=== PATIENT | female | born 1945 | race Caucasian/White ===

== ENCOUNTER 2023-04-07 11:28 | Emergency (ER) | payer OTHER, SELFPAY ==
--- NOTE | 2023-04-07 12:18 | ED.GENMED ---
History of Present Illness
General
Chief Complaint: Chest Pain
Source: patient and family
Exam Limitations: none
Time Seen by Provider: 04/07/23 11:59
Nursing documentation reviewed up to this point in time: agreed with
Travel History
Have you had any contact with someone who has COVID-19?: No
Do you have any symptoms of coronavirus? Fever > 100 degrees, chills, cough, shortness of breath, sore throat, loss of taste or smell, muscle aches, or headache?: No
History of Present Illness
History of Present Illness:
77-year-old female presents emergency room complaining of fall weakness, nausea vomiting, left lower quadrant abdominal pain and intermittent diarrhea. No aggravating relieving factors.
Past History
Past History
ED Past Medical History: COPD, CVA (in 2011, ? TIA in 2018), Hyperthyroidism and Other (PE/DVT's, Alzheimers, Vertigo in 2019)
ED Past Surgical History: Appendectomy, (X 2) and Orthopedic (Cervical spine surgery)
Social History
Tobacco: Smoker
Alcohol: None
Drug: None
Personal:
Living: with family
Employment: Retired
Family History
Family History: Other (Noncontributory)
Review of Systems
Review of Systems
Allergies reviewed?: Yes
All Other Systems: Not applicable
Constitutional: Reports no symptoms; Denies fever
EENT: Reports no symptoms
Respiratory: Reports no symptoms
Cardiac: Reports no symptoms
ABD/GI: Reports abdominal pain, vomiting and diarrhea
: Reports no symptoms
Musculoskeletal: Reports no symptoms
Skin: Reports no symptoms
Neurological: Reports no symptoms
Endocrine: Reports no symptoms
Hematologic/Lymphatic: Reports no symptoms
Psychiatric: Reports no symptoms
Phy Exam
Physical Exam
Physical Exam:
Physical Exam
General: Appears uncomfortable, afebrile
Neck: supple. no meningeal signs. normal posterior pharynx
Heart: s1/s2 regular rate and rhythm, no murmur. equal radial
pulses.
HEENT: Pupils equal round reactive to light, EOMI
Lungs: no acute respiratory distress. clear bilaterally
Abdomen: normal bowel sounds. Left upper quadrant tenderness. No CVAT
Neuro: alert and oriented. no focal neurological deficits cranial nerves II through XII intact
Skin: no rash
Psychiatric: well kept. interactive and cooperative
Extremities: no edema. no calf tenderness. negative homans. good distal pulses
Scores
Heart Score for Chest Pain Patients
STEMI patient?: Not applicable
Course
Orders/Labs/Results
Orders:
Orders
04/07/23 11:28
Electrocardiogram (*1) Urgent
Reason for Study: Chest Pain
04/07/23 11:29
EKG- Treatment ONCE
04/07/23 12:00
CMP [Comprehensive Metabolic Panel] Urgent
Complete Blood Count/With Diff Urgent
Lipase Urgent
Troponin I Urgent
04/07/23 12:17
CT Abd/pelvis W Iv Cont Urgent
Comment:
Reason For Exam: Left side abdominal pain worse LUQ, 5am
Abnormal Lab Results
04/07/23
12:00
WBC 12.0 H 10^3/uL
(4.8-10.8)
MCV 79.3 L fL
(81.0-99.0)
MCH 25.8 L pg
(27.0-31.0)
MCHC 32.5 L g/dL
(33.0-37.0)
RDW 17.8 H %
(11.5-14.5)
Abs Immat Gran (auto) 0.1 H 10^3/uL
(0-0.05)
Absolute Neuts (auto) 8.7 H 10^3/uL
(1.4-6.5)
Absolute Monos (auto) 0.9 H 10^3/uL
(0.1-0.6)
Immature Gran % 0.7 H %
(0-0.5)
Lymphocytes % 17.4 L %
(20.5-51.1)
BUN 21 H mg/dl
(7-17)
Creatinine 1.2 H mg/dL
(0.6-1.0)
Glucose 100 H mg/dl
(70-99)
Total Protein 6.0 L g/dl
(6.3-8.2)
04/07/23 12:00
04/07/23 12:00
Vital Signs
Initial and Last Documented VS:
Initial Vital Signs
Temp Pulse Resp BP Pulse Ox
97.9 F 64 26 108/67 100
04/07/23 11:36 04/07/23 11:36 04/07/23 11:36 04/07/23 11:36 04/07/23 11:36
Last Documented Vital Signs
Temp Pulse Resp BP Pulse Ox
97.9 F 59 15 128/59 98
04/07/23 11:36 04/07/23 14:00 04/07/23 12:00 04/07/23 14:00 04/07/23 14:00
MDM/Problems Addressed
Differential Diagnosis Includes:
Hypovolemia, bowel obstruction, gastroenteritis
MDM/Problems Addressed:
77-year-old female with likely gastroenteritis. No signs of bowel obstruction. Stable for discharge, feels better after IV fluid, Zofran.
Chronic conditions affecting care: CAD and Neurological disorder (Alzheimer's)
Acute Exacerbation and/or Progression of Chronic Illness: CAD
*Radiology
Radiology exam reviewed: radiology read reviewed (CT abdomen pelvis shows fluid-filled loops and small and large intestine, possible gastroenteritis)
*Pulse Oximetry
Patient hypoxic: no
*EKG
Interpreted by ED Provider?: Yes
EKG Intrepretation Date: 04/07/23
EKG Intrepretation Time: 11:33
Interpretation: abnormal
Comparison EKG: changes noted
Heart Rate: 57
Rate: bradycardiac
Rhythm: sinus
[place]: normal axis
Interval: normal interval
QRS Pattern: normal QRS
Ischemia: no ischemia
*Station [employer]per Interpretation
Rate: normal
Interpretation: normal
Heart Rate: 60
Rhythm: sinus
*Critical Care Note
Total Time (30-74mins, 75-104mins- exclusive of procedures): Not Applicable
Patient Management
Social determinants of health affecting care: Living situation
Escalation/DeEscalation of care consider admission/obs:
Admit not indicated
ED Attending Note
-
Portions of this chart may have been created with voice recognition software.� Occasional wrong word or��sound alike� substitutions may have occurred due to the inherent limitations of voice recognition software.
Discharge Plan
Departure
Patient Disposition: Home (Routine Discharge)
Date of Disposition: 04/07/23
Time of Disposition: 15:37
Patient with high blood pressure during this ER visit?: Yes
Condition: Good
Discharge Problem:
Nausea and vomiting, Abdominal pain
Instructions: Abdominal Pain, Acute Nausea and Vomiting
Prescriptions:
New
ondansetron 4 mg tablet,disintegrating
4 mg PO Q8H PRN (Reason: nausea and vomiting) 4 Days Qty: 10 0RF
No Action
Xarelto 20 mg Tablet
20 mg PO QPM
atorvastatin 20 mg tablet
20 mg PO QPM
ipratropium-albuterol 0.5 mg-3 mg(2.5 mg base)/3 mL Solution For Nebulization
3 ml INHALATION R BID
famotidine [Pepcid] 20 mg Tablet
20 mg PO QPM
prednisone 10 mg Tablet
5 mg PO QPM
budesonide 1 mg/2 mL Suspension For Nebulization
1 mg INHALATION R TID
Referrals:
Kt Morales, DO [Family Provider] - Call in 1-3 days for appt
Interventions
Interventions:
*Risk Screen - Suicide Last Done: 04/07/23 11:36
*General Assessment Last Done: 04/07/23 11:36
*Neglect/Abuse Screening Last Done: 04/07/23 11:36
ED- Fall Risk Assessment Last Done: 04/07/23 11:49
*ED COVID-19 Vaccine History Last Done: 04/07/23 11:49
ED- Cardiac Assessment Last Done: 04/07/23 12:05
[2023-04-07 12:19] LABS: % Basophils 0.4 % (0-2); % Eosinophils 1.4 % (0-6); % Immature Granulocytes 0.7 % (0-0.5); % Lymphocytes 17.4 % (20.5-51.1); % Monocytes 7.5 % (1.7-9.3); % Neutrophils 72.6 % (42.2-75.2); Absolute Basophils 0.1 10^3/uL (0-0.2); Absolute Eosinophils 0.2 10^3/uL (0-0.7); Absolute Immature Granulocytes 0.1 10^3/uL (0-0.05); Absolute Lymphocytes 2.1 10^3/uL (1.2-3.4); Absolute Monocytes 0.9 10^3/uL (0.1-0.6); Absolute Neutrophils 8.7 10^3/uL (1.4-6.5); Hematocrit 42.2 % (37.0-47.0); Hemoglobin 13.7 g/dL (12.0-16.0); Mean Corp Hgb Conc. 32.5 g/dL (33.0-37.0); Mean Corpuscular Hgb 25.8 pg (27.0-31.0); Mean Corpuscular Volume 79.3 fL (81.0-99.0); Mean Platelet Volume 9.8 fL (7.4-10.4); Nucleated Red Blood Cells % 0 %; Platelet Count 262 10^3/uL (130-400); Red Blood Cell Count 5.32 10^6/uL (4.20-5.40); Red Cell Dist. Width 17.8 % (11.5-14.5)
[2023-04-07 12:30] LABS: ALT (SGPT) 22 U/L (0-35); AST (SGOT) 24 U/L (14-36); Albumin 3.6 g/dl (3.5-5.0); Alkaline Phosphatase 115 U/L (38-126); Blood Urea Nitrogen 21 mg/dl (7-17); Calcium 9.3 mg/dl (8.4-10.2); Carbon Dioxide 27 mmol/L (22-30); Chloride 101 mmol/L (98-107); Estimated Creatinine Clearance 31 ml/min; Glucose 100 mg/dl (70-99); Potassium 4.6 mmol/L (3.5-5.1); Sodium 137 mmol/L (135-145); Total Bilirubin 0.8 mg/dl (0.2-1.3); eGFR 47.21
[2023-04-07 12:42] LABS: Troponin I < 0.012 ng/ml
[2023-04-07 12:47] LABS: Lipase 65 U/L (23-300)
== END 2023-04-07 16:14 | disposition home or self-care (01) ==
LOC: EMR 11:28
PROVIDERS: EMERGENCY PHYSICIAN Emergency Medicine; FAMILY PHYSICIAN Family Medicine
DX: R11.2 Nausea with vomiting, unspecified (principal); R10.32 Left lower quadrant pain; I25.10 Atherosclerotic heart disease of native coronary artery without angina pectoris; F17.200 Nicotine dependence, unspecified, uncomplicated
CPT/HCPCS: 99285; 74177; 80053; 83690; 84484; 85025; 93005; Q9967

== ENCOUNTER → 2023-04-22 09:39 | Outpatient (REF) | payer OTHER, SELFPAY ==
[2023-04-22 10:34] LABS: % Basophils 0.3 % (0-2); % Eosinophils 1.1 % (0-6); % Immature Granulocytes 0.9 % (0-0.5); % Lymphocytes 19.7 % (20.5-51.1); % Monocytes 8.9 % (1.7-9.3); % Neutrophils 69.1 % (42.2-75.2); Absolute Eosinophils 0.1 10^3/uL (0-0.7); Absolute Immature Granulocytes 0.1 10^3/uL (0-0.05); Absolute Lymphocytes 1.8 10^3/uL (1.2-3.4); Absolute Monocytes 0.8 10^3/uL (0.1-0.6); Absolute Neutrophils 6.1 10^3/uL (1.4-6.5); Hematocrit 45.2 % (37.0-47.0); Hemoglobin 14.3 g/dL (12.0-16.0); Mean Corp Hgb Conc. 31.6 g/dL (33.0-37.0); Mean Corpuscular Hgb 25.9 pg (27.0-31.0); Mean Corpuscular Volume 81.7 fL (81.0-99.0); Mean Platelet Volume 9.7 fL (7.4-10.4); Nucleated Red Blood Cells % 0 %; Platelet Count 285 10^3/uL (130-400); Red Blood Cell Count 5.53 10^6/uL (4.20-5.40); Red Cell Dist. Width 18.4 % (11.5-14.5); White Blood Cell Count 8.9 10^3/uL (4.8-10.8)
[2023-04-22 11:06] LABS: Iron 79 ug/dl (37-170)
[2023-04-22 11:17] LABS: Percent Saturation 29 % (20-50); Total Iron Binding Capacity 269 ug/dl (265-497)
[2023-04-22 11:44] LABS: Ferritin 93.5 ng/ml (11.1-264.0)
== END ==
LOC: REG 09:39
PROVIDERS: ATTENDING PHYSICIAN Internal Medicine Hematology & Oncology
DX: I26.99 Other pulmonary embolism without acute cor pulmonale (principal); Z72.0 Tobacco use; I82.401 Acute embolism and thrombosis of unspecified deep veins of right lower extremity
CPT/HCPCS: 36415; 82728; 83540; 83550; 85025

== ENCOUNTER 2023-04-29 12:45 | Outpatient (RCR) | payer OTHER, SELFPAY | END 2023-04-29 23:59 | disposition home or self-care (01) | LOC: PURB 12:45 | PROVIDERS: ATTENDING PHYSICIAN Internal Medicine Critical Care Medicine; FAMILY PHYSICIAN Family Medicine | DX: J43.2 Centrilobular emphysema (principal) | CPT/HCPCS: G0237 ==

== ENCOUNTER 2023-05-29 14:45 | Outpatient (RCR) | payer OTHER, SELFPAY | END 2023-05-29 23:59 | disposition home or self-care (01) | LOC: PURB 14:45 | PROVIDERS: ATTENDING PHYSICIAN Internal Medicine Critical Care Medicine; FAMILY PHYSICIAN Family Medicine | DX: J43.2 Centrilobular emphysema (principal); J44.9 Chronic obstructive pulmonary disease, unspecified; Z87.891 Personal history of nicotine dependence; Z86.711 Personal history of pulmonary embolism; R06.00 Dyspnea, unspecified | CPT/HCPCS: G0239 ==

== ENCOUNTER 2023-06-26 14:45 | Outpatient (RCR) | payer OTHER, SELFPAY | END 2023-06-26 23:59 | disposition home or self-care (01) | LOC: PURB 14:45 | PROVIDERS: ATTENDING PHYSICIAN Internal Medicine Critical Care Medicine; FAMILY PHYSICIAN Family Medicine | DX: J43.2 Centrilobular emphysema (principal) | CPT/HCPCS: G0239 ==

== ENCOUNTER 2023-07-17 14:45 | Outpatient (RCR) | payer OTHER, SELFPAY | END 2023-07-17 23:59 | disposition home or self-care (01) | LOC: PURB 14:45 | PROVIDERS: ATTENDING PHYSICIAN Internal Medicine Critical Care Medicine; FAMILY PHYSICIAN Family Medicine | DX: J43.2 Centrilobular emphysema (principal); Z87.891 Personal history of nicotine dependence | CPT/HCPCS: G0239 ==

== ENCOUNTER 2023-08-07 14:45 | Outpatient (RCR) | payer OTHER, SELFPAY | END 2023-08-15 11:05 | disposition home or self-care (01) | LOC: PURB 14:45 | PROVIDERS: ATTENDING PHYSICIAN Internal Medicine Critical Care Medicine; FAMILY PHYSICIAN Family Medicine | DX: J43.2 Centrilobular emphysema (principal) | CPT/HCPCS: G0239 ==

== ENCOUNTER → 2023-09-09 11:21 | Outpatient (REF) | payer OTHER, SELFPAY ==
[2023-09-09 12:52] LABS: % Basophils 0.4 % (0-2); % Eosinophils 3.4 % (0-6); % Immature Granulocytes 0.4 % (0-0.5); % Lymphocytes 29.6 % (20.5-51.1); % Monocytes 9.5 % (1.7-9.3); % Neutrophils 56.7 % (42.2-75.2); Absolute Eosinophils 0.3 10^3/uL (0-0.7); Absolute Lymphocytes 2.4 10^3/uL (1.2-3.4); Absolute Monocytes 0.8 10^3/uL (0.1-0.6); Absolute Neutrophils 4.6 10^3/uL (1.4-6.5); Hematocrit 42.2 % (37.0-47.0); Hemoglobin 13.6 g/dL (12.0-16.0); Mean Corp Hgb Conc. 32.2 g/dL (33.0-37.0); Mean Corpuscular Hgb 26.2 pg (27.0-31.0); Mean Corpuscular Volume 81.3 fL (81.0-99.0); Mean Platelet Volume 9.5 fL (7.4-10.4); Nucleated Red Blood Cells % 0 %; Platelet Count 294 10^3/uL (130-400); Red Blood Cell Count 5.19 10^6/uL (4.20-5.40); Red Cell Dist. Width 16.1 % (11.5-14.5); White Blood Cell Count 8.1 10^3/uL (4.8-10.8)
[2023-09-09 13:58] LABS: Ferritin 62.2 ng/ml (11.1-264.0)
[2023-09-09 14:00] LABS: Iron 73 ug/dl (37-170)
[2023-09-09 14:08] LABS: Percent Saturation 26 % (20-50); Total Iron Binding Capacity 274 ug/dl (265-497)
== END ==
LOC: REG 11:21
PROVIDERS: ATTENDING PHYSICIAN Internal Medicine Hematology & Oncology; FAMILY PHYSICIAN Family Medicine
DX: I26.99 Other pulmonary embolism without acute cor pulmonale (principal); Z72.0 Tobacco use; I82.401 Acute embolism and thrombosis of unspecified deep veins of right lower extremity
CPT/HCPCS: 36415; 82728; 83540; 83550; 85025

== ENCOUNTER 2024-02-28 02:18 | Inpatient (IN) | payer OTHER, SELFPAY ==
[2024-02-27] VITALS (7 sets, daily range): BP systolic 106–170; BP diastolic 57–101
[2024-02-27 20:42] LABS: Glucose - Point of Care 113 mg/dl (70-99)
--- NOTE | 2024-02-27 20:46 | ED.GENMED ---
History of Present Illness
General
Chief Complaint: Headache
Source: patient and family
Time Seen by Provider: 02/27/24 20:44
History of Present Illness
History of Present Illness:
This patient is a 78-year-old female presents emergency department with complaints of weakness and severe headache. The headache happened very recently before her arrival, within the last hour or 2. Her family member who is with her stated that
she spoke with her at 5 PM and she was not complain of a headache at that time. Her family member states that recently she has appeared 'winded', which happens sometimes when she gets a URI, and she thought she may have 1 and made an appointment
with her PCP for this week. However, after 5 PM, she reportedly began to complain of a severe headache which is her chief complaint at this time.
Past History
Past History
ED Past Medical History: COPD, CVA (in 2011, ? TIA in 2018), Hyperthyroidism and Other (PE/DVT's, Alzheimers, Vertigo in 2019)
ED Past Surgical History: Appendectomy, (X 2) and Orthopedic (Cervical spine surgery)
Social History
Tobacco: Former smoker
Alcohol: None
Drug: None
Personal:
Living: with family
Employment: Retired
Family History
Family History: Other (Noncontributory)
Phy Exam
Physical Exam
Physical Exam:
GENERAL: Alert , in no apparent distress
EYE: pupils equal and reactive, photophobia noted
NECK: Supple, no significant adenopathy.
ENT: o/p clr, mmm.
CARDIAC: Regular rate and rhythm .
LUNGS: Equal breath sounds bilaterally, no acute respiratory distress, no rales or rhonchi, mild wheezing noted
ABDOMEN: Soft, without focal tenderness, no r/g, no cvat
NEUROLOGICAL: Alert and oriented, no focal neuro deficits, moves all extremities equally, speech clear
SKIN: Warm and dry, skin intact.
MUSCULOSKELETAL: No edema, well perfused.
PSYCH: Normal and appropriate interaction although appears restless given pain.
Course
Orders/Labs/Results
Orders:
Orders
02/27/24 20:41
CT Head W/o Iv Contrast Stat
Comment:
Reason For Exam: stroke
02/27/24 20:45
Electrocardiogram (*1) Stat
Reason for Study: Other
Other Reason for Exam: neuro symptoms
Cardiac Monitoring- Treatment ONCE
EKG- Treatment ONCE
02/27/24 20:53
Complete Blood Count/No Diff Urgent
Comprehensive Metabolic Panel Urgent
PTT Urgent
Prothrombin Time Urgent
02/27/24 21:02
Morphine Sulfate 4 mg .ROUTE .STK-MED ONE
Ondansetron Injectable [Zofran] 4 mg .ROUTE .STK-MED ONE
02/27/24 21:03
Morphine Sulfate 4 mg IV NOW STA
02/27/24 21:04
Ondansetron Injectable [Zofran] 4 mg IV NOW STA
02/27/24 21:10
CT Head & Neck Angio W/wo IV Urgent
Reason For Exam: SEVERE H/A
02/27/24 21:41
Metoclopramide [Reglan] 10 mg IV NOW STA
02/27/24 22:29
Ipratropium/Albuterol Sulfate [Duoneb] 3 ml INH R NOW ONE
CR Chest - 2 Views Urgent
Comment:
Reason For Exam: hx copd, hypoxia now
02/28/24 01:23
COVID-19 Antigen Urgent
Source: Nasal Swab
Influenza A+B Rapid Molecular Urgent
SHERMAN Source: Nasal Swab
Specimen Description:
02/28/24 01:39
Admit/Transfer Patient As Directed
Co-Sign Provider:
Level of Care: Inpatient admission
Assign to:: Medical/Surgical
Physician / Group: Dora
Diagnosis: COVID-19, Hypoxemia, Headache
Reason for Hospitalization: COVID-19, Hypoxemia, Headache
Expected length of stay greater than two midnights?: Yes
ELOS- Estimated Length of Stay in days: 2
I certify the patient meets the requirements for IP care: Yes
02/28/24 01:40
PRN Pain Medication Management As Directed
May give lesser potent ordered pain med per pt: Yes
preference::
Protocol:: Medication orders for pain may be administered in a
manner that supports deferring to patient preference
when the pt is:
- Requesting an ordered lesser potent pain medication.
Least to most potent pain medications are defined
as: acetaminophen < NSAID < tramadol < opioids
(morphine, oxycodone, hydromorphone).
- Requesting a lesser dose of the same medication IF
ORDERED.
- Requesting a less intrusive route of administration
if both routes are prescribed by the provider (PO <
IV).
02/28/24 01:41
Code Status As Directed
Resuscitation Status: Full Code
02/28/24 02:56
Acetaminophen [Tylenol] 650 mg PO Q4HPRN PRN
Albuterol [ProAIR HFA INHALER] 2 puff INH R Q4HPRN PRN
Dexamethasone Sod Phosphate [Decadron] 6 mg IV Q12H
HYDROmorphone [Dilaudid] 0.5 mg IV Q4HPRN PRN
Promethazine/Codeine [Phenergan with Codeine Syrup] 5 ml PO Q4HPRN PRN
02/28/24 02:56
Activity As Directed
Activity Level: Ambulate
With Assistance
I/O [Intake/ Output] As Directed
Frequency: Per unit guidelines
Precautions As Directed
Type of Precautions: Droplet
Vital Signs As Directed
Frequency: Per unit guidelines
Oxygen Therapy [O2 Therapy] [RESP] Routine
Titrate/Wean O2 to maintain O2 sat greater than (%): 94
02/28/24 Breakfast
Regular
At Your Request: Full Participation
02/28/24 06:30
Basic Metabolic Panel IN AM
Complete Blood Count/No Diff IN AM
02/28/24 18:00
Atorvastatin [Lipitor] 20 mg PO QPM
Famotidine [Pepcid] 20 mg PO QPM
Rivaroxaban [Xarelto] 20 mg PO QPM
Abnormal Lab Results
02/27/24 02/27/24 02/28/24
20:41 20:53 01:23
WBC 11.2 H 10^3/uL
(4.8-10.8)
RBC 5.49 H 10^6/uL
(4.20-5.40)
MCH 26.2 L pg
(27.0-31.0)
MCHC 32.3 L g/dL
(33.0-37.0)
RDW 16.0 H %
(11.5-14.5)
BUN 18 H mg/dl
(7-17)
Creatinine 1.2 H mg/dL
(0.6-1.0)
Glucose 123 H mg/dl
(70-99)
SARS-CoV-2 Antigen Positive A
(Negative)
POC Glucose 113 H mg/dl
(70-99)
02/27/24 20:53
02/27/24 20:53
Vital Signs
Initial and Last Documented VS:
Initial Vital Signs
BP
170/67
02/27/24 20:40
Last Documented Vital Signs
Temp Pulse Resp BP Pulse Ox
98.3 F 64 16 124/60 98
03/04/24 07:28 03/04/24 07:28 03/04/24 07:28 03/04/24 07:28 03/04/24 07:28
*Critical Care Note
Total Time (30-74mins, 75-104mins- exclusive of procedures): Not Applicable
Update Note
Update Note:
Patient presents to the Emergency Department with ____severe headache and fatigue
Number and Complexity of Problems Addressed at the Encounter
� Chronic conditions affecting care:
� Acute Exacerbation and/or Progression of Chronic Illness:
� Differential Diagnosis includes: But not limited to CVA ischemic, subdural, intracerebral hemorrhage, migraine, hypertensive urgency, etc.
Amount and/or Complexity of Data to be Reviewed and Analyzed
� I performed an independent evaluation of and my interpretation is:
EKG: Read by me, normal sinus rhythm, normal rate, normal axis, no acute ischemia
CT: Preliminary read by me, no bleed noted cta read by donna CTA Head: No large vessel occlusion. No significant arterial stenosis. No aneurysm. Minimal mucosal thickening of the left maxillary sinus.
CTA Neck: There is mixed density atherosclerotic plaque of the left carotid bifurcation/proximal ICA with resultant 30% stenosis by NASCET criteria.
Mild centrilobular emphysematous changes of the bilateral upper lobes.
Xrays:
Laboratory Studies:mild renal insuffic, baseline. nonspec leukocytosis (mild)
Other:
� Review of other/old records reveals: December 2022, admitted with resp failure with COVID
� Clinical information was obtained by an independent historian: Family member who is at bedside
� Prescriptions/Medications Considered but not given:
� Further testing considered but not performed:
Risk of Complications and/or Morbidity or Mortality of Patient Management
� Social determinants of health affecting care:
� Discussion with other providers (PCP, Hospitalists, Consultants, etc):
� Escalation of care including admission/observation vs risk of discharge considered: 848 patient immediately assessed upon presentation to room, stat head CT was ordered and patient is there now.
9:10 PM further history obtained status post CT scan. Of note, I do not see blood on the CT scan although await team final report. Patient is restless in the bed complaining of a severe headache that started shortly before arrival here. She said
she was sitting on the couch and developed a headache across the front of her head associated with mild photophobia. She denies associated neck pain, visual changes, numbness, tingling, focal weakness, dizziness, chest pain, shortness of breath,
abdominal pain, or other complaints. Patient's blood pressure noted to be only moderately elevated and not consistent with a hypertensive emergency. CTA of head and neck ordered with consideration for aneurysm/SAH. No focal neurological findings
at this time. Granddaughter remains at bedside and provides valuable information.
941pm h/a better initially but starting to slowly increase, reglan ordered, pt going to cta
H/a now just on right side, moderate. No new sxs. CTA noted, less concern for sah/ich/etc etc. ?migraine. No obj photophobia noted on exam here. Will meicate, check cxr and give neb.
11:30 PM multiple reassessments by me. Patient noted to be slightly hypoxic at 89 to 90% on room air, granddaughter states that she is typically 95% on room air and she has noted that patient has been 'winded' for at least a day. Highly doubt PE
given patient's anticoagulant use. However, likely consistent with COPD exacerbation as wheezing is noted. No specific infiltrate noted on chest x-ray as reviewed by me and radiology. Will start patient on increased dose of steroids and continue
nebulizer treatments. Neurologically, patient feels better but still has a moderate right-sided headache. She does not have focal neurological symptoms to suggest an acute stroke. She is resting comfortably but does note to be intermittently
restless. May be related to medication reaction, atypical presentation of known history of migraines, etc. Recommend admission, close monitoring, consideration for MR.
ED Attending Note
-
Portions of this chart may have been created with voice recognition software.� Occasional wrong word or��sound alike� substitutions may have occurred due to the inherent limitations of voice recognition software.
Discharge Plan
Departure
Patient Disposition: Admit
Date of Disposition: 02/27/24
Time of Disposition: 23:40
Admit to: Telemetry
Admit to doctor: dora
Presentation/result/management discussed w/ accepting MD/DO: Hospitalist
Condition: Fair
Discharge Problem:
Acute exacerbation of chronic obstructive pulmonary disease (COPD), Headache, COVID
Interventions
Interventions:
*Risk Screen - Suicide Last Done: 02/28/24 03:00
*General Assessment Last Done: 02/27/24 20:51
*Neglect/Abuse Screening Last Done: 02/27/24 20:51
ED- Fall Risk Assessment Last Done: 02/27/24 23:17
*ED COVID-19 Vaccine History Last Done: 02/28/24 03:00
*Nursing Disposition Last Done: 02/28/24 03:01
ED- Neurological Assessment Last Done: 02/27/24 20:51
Discharge Date and Time
Discharge Date/Time: 02/28/24 03:02
[2024-02-27 20:58] LABS: Hematocrit 44.6 % (37.0-47.0); Hemoglobin 14.4 g/dL (12.0-16.0); Mean Corp Hgb Conc. 32.3 g/dL (33.0-37.0); Mean Corpuscular Hgb 26.2 pg (27.0-31.0); Mean Corpuscular Volume 81.2 fL (81.0-99.0); Mean Platelet Volume 9.5 fL (7.4-10.4); Platelet Count 261 10^3/uL (130-400); Red Blood Cell Count 5.49 10^6/uL (4.20-5.40); White Blood Cell Count 11.2 10^3/uL (4.8-10.8)
[2024-02-27] MEDS: ZOFRAN 4 MG IV (21:04)
[2024-02-27] MEDS: MORPHINE SULFATE 4 MG IV (21:05)
[2024-02-27 21:09] LABS: PT 13.7 Sec (11.4-14.6)
[2024-02-27 21:10] LABS: APTT 30.3 Sec (23.4-35.0)
[2024-02-27 21:13] LABS: ALT (SGPT) 19 U/L (0-35); AST (SGOT) 25 U/L (14-36); Albumin 4.1 g/dl (3.5-5.0); Alkaline Phosphatase 115 U/L (38-126); Blood Urea Nitrogen 18 mg/dl (7-17); Calcium 9.1 mg/dl (8.4-10.2); Carbon Dioxide 24 mmol/L (22-30); Chloride 103 mmol/L (98-107); Estimated Creatinine Clearance 30 ml/min; Glucose 123 mg/dl (70-99); Sodium 136 mmol/L (135-145); Total Bilirubin 0.9 mg/dl (0.2-1.3); Total Protein 6.7 g/dl (6.3-8.2); eGFR 46.91
[2024-02-27] MEDS: REGLAN 10 MG IV (22:20)
[2024-02-27] MEDS: DUONEB 3 ML INH (22:48)
[2024-02-28] VITALS (7 sets, daily range): BP systolic 106–143; BP diastolic 52–103; BMI 22.3
[2024-02-28 01:31] LABS: COVID-19 Antigen Positive (Negative)
--- NOTE | 2024-02-28 01:44 | HPS.HSE ---
Family Physician
-
Family Physician: Kt Morales
Chief Complaint
-
Cough / Headache
History of Present Illness
Patient is a 78y F with PMH significant for COPD, CKD and prior CVA who presents to ED complaining of cough and headache. Patient states that she was feeling fairly well until a cough 'came out of nowhere' about 3-4 days ago. She has had
hacking, non-productive cough with harsh paroxysms of coughing. She reports some chills, muscle aches. Today, she developed a severe headache at both temples and presented to the ED for further evaluation. Patient is not aware of any specific
recent sick contacts. She denies any GI or complaints.
She denies any prior history of similar / severe headaches, migraines, etc.
Patient has / had no symptoms of focal weakness, numbness or tingling, slurred speech, etc.
Medical History
Past Medical History
Past Medical History: Reports Other
Additional Past Medical History:
ASCVD / Prior CVA
COPD
CKD III
Hyperthyroidism
? Paroxysmal A-Fib (patient denies this diagnosis)
History of DVT / PE
Past Surgical History: Reports Other
Additional Past Surgical History:
Cervical Fusion
Cataracts
x 2
Social History
Tobacco: Former Smoker (Quit smoking 3 years ago. > 50 pack years total use.)
Alcohol: None
Drug: None
Family History
Family History: Not pertinent
Allergies / Home Medications
Allergies reflects when Allergies were last updated in [facility].
Home Medications with original date entered in [facility]
Allergy/Medication List:
Allergies
Allergy/AdvReac Type Severity Reaction Status Date / Time
No Known Allergies Allergy Verified 12/07/22 15:13
Home Medications
rivaroxaban 20 mg tablet (Xarelto) 20 mg PO QPM DVT/PE 12/03/21
atorvastatin 20 mg tablet 20 mg PO QPM High Cholesterol 12/07/22
ipratropium 0.5 mg-albuterol 3 mg (2.5 mg base)/3 mL nebulization soln 3 ml inhalation R TID 01/28/23
famotidine 20 mg tablet (Pepcid) 20 mg PO QPM 04/07/23
acetaminophen 500 mg tablet (Tylenol Extra Strength) 500 mg PO Q6HPRN PRN mild pain 02/27/24
budesonide 0.5 mg/2 mL suspension for nebulization 0.5 mg inhalation R BID 02/27/24
prednisone 5 mg tablet 5 mg PO QPM 02/27/24
rizatriptan 10 mg tablet 10 mg PO DAILYPRN PRN headache 02/27/24
Review of Systems
-
History Source: Patient
A 12 point ROS was completed and negative except as noted: Yes
Constitutional: Reports Fatigue and Chills; Denies Fever
EENT: Denies Sore Throat
Respiratory: Reports Cough; Denies Hemoptysis or Trouble Breathing
Cardiac: Denies Chest Pain or Palpitations
Abdomen/GI: Denies Abdominal Pain, Nausea, Vomiting or Diarrhea
: Denies Dysuria or Frequency
Neurological: Reports Headache; Denies Dizzy
Psych: Denies Depression or Anxiety
Physical Exam
Vital Signs
Vital Signs
Temp Pulse Resp BP Pulse Ox
98.7 F 84 13 109/58 97
02/27/24 21:09 02/28/24 00:30 02/28/24 00:30 02/28/24 00:00 02/28/24 00:30
Physical Exam
General: Other (78y F in mild distress due to headache and cough.)
HEENT: Moist mucous membranes and PERRLA
Respiratory: Other (Rales at the L > R base. No wheezing or rhonchi.)
Cardiac: S1/S2, Regular Rhythm and Tachycardia; No Murmur
GI: Soft, Non Tender, Non Distended and Normal Bowel Sounds
Musculoskeletal: No Clubbing, No Cyanosis and No Edema
Neuro: AO x 3 and Nonfocal/grossly intact
Laboratory Results
-
02/27/24 20:53
02/27/24 20:53
Laboratory Results
PT 13.7 Sec (11.4-14.6) 02/27/24 20:53
INR 1.00 02/27/24 20:53
APTT 30.3 Sec (23.4-35.0) 02/27/24 20:53
Total Bilirubin 0.9 mg/dl (0.2-1.3) 02/27/24:53
AST 25 U/L (14-36) 02/27/24 20:53
ALT 19 U/L (0-35) 02/27/24:53
Alkaline Phosphatase 115 U/L (38-126) 02/27/24 20:53
Impression/Plan
-
A/P: Patient is a 78y F with PMH significant for COPD, CVA and prior DVT / PE who presents to ED complaining of harsh cough and severe headache.
COVID-19 Infection
Acute Hypoxemic Respiratory Insufficiency secondary to the above
- Admit for further evaluation and treatment.
- Mild hypoxemia with SpO2 < 94%.
- Will begin steroid therapy given hypoxemia, concurrent COPD and migraine / severe headache.
- Follow proper precautions.
- Monitor for clinical improvement.
- Supportive care / supplemental O2 as needed.
- Albuterol MDI.
Severe Headache
- Seems likely secondary to harsh paroxysms of cough / COVID infection as noted above.
- Imaging in the ED this evening including CT and CTA was unremarkable.
- Continue supportive care with pain control, steroids, etc.
- Follow for any new / worsening symptoms.
COPD without Acute Exacerbation
- No wheezing appreciated on exam at present.
- IV steroids with dexamethasone as noted above.
- Taper quickly / discontinue as clinically improves.
- Inhalers / MDI as noted.
ASCVD / History of CVA
- No residual deficit per patient.
- No new focal symptoms, etc today - despite severe headache.
- Follow for any changes.
CKD III
- Stable. SCr is at / near known baseline.
- Follow for changes.
Paroxysmal A-Fib
- Patient seems unaware of this diagnosis - ? accuracy.
- Currently in sinus rhythm.
- On Xarelto (for history of DVT / PE).
History of DVT / PE
DVT Prophylaxis
- Continue Xarelto
Code Status: Full
--- NOTE | 2024-02-28 03:00 | PTCARENOTE ---
Pt arrived to unit @ 3am via stretcher and required x2 assistance to walk to room. Pt is very unsteady and unable to stand on own gait is very weak. VSS, afebrile. Pt anxious @ baseline and restless when awake, moves all extremities with no issues.
ADMISSION DOCUMENTATION COMPLETED IN ROOM WITH PATIENT.
[2024-02-28] MEDS: DECADRON 6 MG IV ×2 (03:40→16:15)
[2024-02-28 07:13] LABS: Hematocrit 43.5 % (37.0-47.0); Hemoglobin 14.1 g/dL (12.0-16.0); Mean Corp Hgb Conc. 32.4 g/dL (33.0-37.0); Mean Corpuscular Hgb 26.3 pg (27.0-31.0); Platelet Count 235 10^3/uL (130-400); Red Blood Cell Count 5.37 10^6/uL (4.20-5.40); Red Cell Dist. Width 16.3 % (11.5-14.5); White Blood Cell Count 11.1 10^3/uL (4.8-10.8)
[2024-02-28 07:31] LABS: Blood Urea Nitrogen 19 mg/dl (7-17); Carbon Dioxide 24 mmol/L (22-30); Chloride 102 mmol/L (98-107); Estimated Creatinine Clearance 30 ml/min; Glucose 105 mg/dl (70-99); Potassium 4.7 mmol/L (3.5-5.1); Sodium 135 mmol/L (135-145); eGFR 46.91
[2024-02-28 09:13] LABS: Glucose - Point of Care 117 mg/dl (70-99)
--- NOTE | 2024-02-28 15:04 | PTCARENOTE ---
patient denies complaints, has +sob with exertion, tolerating diet, vss, will continue to monitor.
--- NOTE | 2024-02-28 16:45 | CM ---
Alert awake forgetful patient who lives with her Guido and special needs son Tj who lives in a 1 story home with 0 steps to enter. She is independent in most all activities of daily living.Assisted with med prep.Spoke with granddgt
Berta [phone] because pt requested.Berta said has dementia. Family is looking for more help for patient at home. Will need PT OT for dc planning.
No adaptive devices
VN hx / [facility]
Pharmacy [facility] [place]
PCP Dr Morales
PLAN Will need PT OT eval for dc planning
[2024-02-28] MEDS: LIPITOR 20 MG PO (17:17)
[2024-02-28] MEDS: PEPCID 20 MG PO (17:18)
[2024-02-28] MEDS: XARELTO 20 MG PO (17:18)
[2024-02-28] MEDS: PHENERGAN WITH CODEINE SYRUP 5 ML PO (22:12)
[2024-02-29] MEDS: DECADRON 6 MG IV ×2 (03:24→16:11)
[2024-02-29 06:00] VITALS: BMI 22.2
[2024-02-29 07:00] VITALS: BP 121/74
--- NOTE | 2024-02-29 07:52 | W.PN.HOSP.TC ---
Today's Communication/Plan
-
see bold
Assessment / Plan
Assessment / Plan
Gen: NAD, AAOx3.
Eyes: EOMI, PERRLA, no scleral icterus.
Neck: supple.
CV: RRR, +S1/S2, no m/r/g.
Resp: CTAB, no rales, wheezes, or rhonchi.
Abd: +BS, soft, NT, ND
Skin: No rashes.
Neuro: CN 2-12 intact
Psych: Normal mood and affect.
CXR: Right basilar atelectasis/scarring. No evidence of pneumonia or overt edema. Mild emphysematous changes within the bilateral upper lobes.
CT brain: No acute intracranial abnormality noted.
CTA Head: No large vessel occlusion. No significant arterial stenosis. No aneurysm. Minimal mucosal thickening of the left maxillary sinus.
CTA Neck: There is mixed density atherosclerotic plaque of the left carotid bifurcation/proximal ICA with resultant 30% stenosis by NASCET criteria.
Mild centrilobular emphysematous changes of the bilateral upper lobes.
Acute hypoxemic respiratory insufficiency due to acute COVID infection:
-CXR without infiltrated
-cont Decadron
-currently on 4L NC O2, wean O2 as tolerated
-start Monupiravir (as per discussion with pharmacy no changes in statin or Xarelto are required)
Other problems:
COPD without Acute Exacerbation: Albuterol PRN
CAD: cont statin
h/o CVA: cont Statin/Xarelto
PAF (? diagnosis): cont Xarelto
CKD3
h/o DVT/PE: cont Xarelto
FULL/Xarelto
Anticipated Discharge: 24 - 48 hours
Subjective/Interval History
-
Date of Service: February 29, 2024
'I feel a lot better than yesterday.'
Objective Data
-
Vital Signs:
Vital Signs
Temp Pulse Resp BP Pulse Ox
97.8 F 83 16 143/103 97
02/28/24 23:00 02/28/24 23:00 02/28/24 23:00 02/28/24 23:00 02/28/24 23:00
I&O
02/28/24 02/29/24 03/01/24
06:59 06:59 06:59
Intake Total 1440 / 1440 600 / 600
Balance 1440 / 1440 600 / 600
[2024-02-29] MEDS: MOLNUPIRAVIR (EUA) 800 MG PO ×2 (13:18→20:54)
[2024-02-29 15:00] VITALS: BP 129/70
[2024-02-29] MEDS: XARELTO 20 MG PO (17:50)
[2024-02-29] MEDS: PEPCID 20 MG PO (17:50)
[2024-02-29] MEDS: LIPITOR 20 MG PO (17:50)
[2024-02-29 23:28] VITALS: BP 134/63
[2024-03-01] MEDS: DECADRON 6 MG IV (02:45)
[2024-03-01 06:00] VITALS: BMI 22.1
[2024-03-01 07:46] VITALS: BP 135/60
[2024-03-01] MEDS: MOLNUPIRAVIR (EUA) 800 MG PO ×2 (08:13→20:03)
--- NOTE | 2024-03-01 09:03 | W.PN.HOSP.TC ---
Today's Communication/Plan
-
Steroids. Molnupiravir. Oxygen.
Assessment / Plan
Assessment / Plan
Gen: NAD, AAOx3.
Eyes: EOMI, PERRLA, no scleral icterus.
Neck: supple.
CV: RRR, +S1/S2, no m/r/g.
Resp: Decreased breath sounds bilateral. Limited airflow. No rales, wheezes, or rhonchi.
Abd: +BS, soft, NT, ND
Skin: No rashes.
Neuro: CN 2-12 intact
Psych: Normal mood and affect.
CXR: Right basilar atelectasis/scarring. No evidence of pneumonia or overt edema. Mild emphysematous changes within the bilateral upper lobes.
CT brain: No acute intracranial abnormality noted.
CTA Head: No large vessel occlusion. No significant arterial stenosis. No aneurysm. Minimal mucosal thickening of the left maxillary sinus.
CTA Neck: There is mixed density atherosclerotic plaque of the left carotid bifurcation/proximal ICA with resultant 30% stenosis by NASCET criteria.
Mild centrilobular emphysematous changes of the bilateral upper lobes.
A/P:
Acute hypoxemic respiratory insufficiency due to acute COVID infection:
-CXR without infiltrated
-cont Decadron but decrease from 6 mg bid to 6 mg daily
-currently on 4L NC O2, wean O2 as tolerated
-start Monupiravir (as per discussion with pharmacy no changes in statin or Xarelto are required)
-Added cough meds
Tremors:
Acute on chronic
May be exacerbated by steroids but discussed risk and benefits and she would like to continue (will taper doses as above)
CKD:
Creatinine 1.3 from 1.2 couple days ago
Avoid nephrotoxic
Repeat renal function in a.m.
Other problems:
COPD without Acute Exacerbation: Albuterol PRN
CAD: cont statin
h/o CVA: cont Statin/Xarelto
PAF (? diagnosis): cont Xarelto
CKD3
h/o DVT/PE: cont Xarelto
FULL/Xarelto
Anticipated Discharge: > 48 hours
Subjective/Interval History
-
Date of Service: March 01, 2024
Patient complains of cough. Less shortness of breath. No chest pain. On supplemental oxygen. Afebrile
Objective Data
-
Vital Signs:
Vital Signs
Temp Pulse Resp BP Pulse Ox
98.5 F 63 16 135/60 100
03/01/24 07:46 03/01/24 07:46 03/01/24 07:46 03/01/24 07:46 03/01/24 07:46
I&O
02/29/24 03/01/24 03/02/24
06:59 06:59 06:59
Intake Total 1440 / 1440 2970 / 2970
Balance 1440 / 1440 2970 / 2970
[2024-03-01 12:54] LABS: Blood Urea Nitrogen 32 mg/dl (7-17); Calcium 8.8 mg/dl (8.4-10.2); Carbon Dioxide 29 mmol/L (22-30); Chloride 99 mmol/L (98-107); Estimated Creatinine Clearance 28 ml/min; Glucose 209 mg/dl (70-99); Potassium 4.3 mmol/L (3.5-5.1); Sodium 137 mmol/L (135-145); eGFR 42.62
[2024-03-01] MEDS: ROBITUSSIN AC 5 ML PO ×2 (14:05→20:00)
--- NOTE | 2024-03-01 14:31 | CM ---
Chart reviewed
+Covid
On
plan: home, currently no needs anticipated
[2024-03-01 15:07] VITALS: BP 132/55
[2024-03-01] MEDS: PEPCID 20 MG PO (18:31)
[2024-03-01] MEDS: XARELTO 20 MG PO (18:32)
[2024-03-01] MEDS: 0.45%NACL 1000 IV (18:35)
[2024-03-01] MEDS: LIPITOR 20 MG PO (18:35)
--- NOTE | 2024-03-01 20:26 | PTCARENOTE ---
Pt niece requested IVF as she said her aunt doesn't drink a lot and may be 'dehydrated'. Dr Mitchell notified. IVF ordered and hung.
[2024-03-02 00:04] VITALS: BP 132/57
[2024-03-02 06:00] VITALS: BMI 22.3
[2024-03-02 07:30] VITALS: BP 136/67
[2024-03-02] MEDS: MOLNUPIRAVIR (EUA) 800 MG PO ×2 (08:32→20:58)
[2024-03-02] MEDS: DECADRON 6 MG IV (08:40)
[2024-03-02] MEDS: 0.45%NACL 1000 IV (08:41)
--- NOTE | 2024-03-02 09:01 | W.PN.HOSP.TC ---
Addendum entered and electronically signed by Tj Mitchell MD 03/02/24 17:33:
updated daughter over the phone today
Addendum entered and electronically signed by Tj Mitchell MD 03/02/24 15:02:
Viral sepsis, POA
COPD exacerbation-still being monitored/treated
Original Note:
Today's Communication/Plan
-
Dexamethasone. Molnupiravir. PT OT eval
Assessment / Plan
Assessment / Plan
Gen: NAD, AAOx3.
Eyes: EOMI, PERRLA, no scleral icterus.
Neck: supple.
CV: RRR, +S1/S2, no m/r/g.
Resp: Decreased breath sounds bilateral. Limited airflow. No rales, wheezes, or rhonchi.
Abd: +BS, soft, NT, ND
Skin: No rashes.
Neuro: CN 2-12 intact
Psych: Normal mood and affect.
CXR: Right basilar atelectasis/scarring. No evidence of pneumonia or overt edema. Mild emphysematous changes within the bilateral upper lobes.
CT brain: No acute intracranial abnormality noted.
CTA Head: No large vessel occlusion. No significant arterial stenosis. No aneurysm. Minimal mucosal thickening of the left maxillary sinus.
CTA Neck: There is mixed density atherosclerotic plaque of the left carotid bifurcation/proximal ICA with resultant 30% stenosis by NASCET criteria.
Mild centrilobular emphysematous changes of the bilateral upper lobes.
A/P:
Acute hypoxemic respiratory insufficiency due to acute COVID infection:
-CXR without infiltrated
-cont Decadron but decrease from 6 mg bid to 6 mg daily--> switch to dexamethasone 6 mg orally from tomorrow on
-currently on 4L NC O2, wean O2 as tolerated
-start Monupiravir (as per discussion with pharmacy no changes in statin or Xarelto are required)
-Continue cough meds
-PT OT eval for discharge disposition
Tremors:
Acute on chronic
May be exacerbated by steroids but discussed risk and benefits and she would like to continue (will taper doses as above)
CKD:
Creatinine 1.1 from 1.3--> received some IV fluids yesterday. Stop IV fluids today
Avoid nephrotoxic
Repeat renal function in a.m.
Other problems:
COPD without Acute Exacerbation: Albuterol PRN
CAD: cont statin
h/o CVA: cont Statin/Xarelto
PAF (? diagnosis): cont Xarelto
CKD3
h/o DVT/PE: cont Xarelto
FULL/Xarelto
Anticipated Discharge: 24 - 48 hours
Subjective/Interval History
-
Date of Service: March 02, 2024
Patient feels better today but not ready for discharge. Still has some cough and less short of breath. Afebrile. On room air
Objective Data
-
Labs:
Laboratory Results
03/02/24
08:14
WBC Pending
Hgb Pending
Hct Pending
Plt Count Pending
Sodium Pending
Potassium Pending
Chloride Pending
Carbon Dioxide Pending
BUN Pending
Creatinine Pending
Glucose Pending
Calcium Pending
Vital Signs:
Vital Signs
Temp Pulse Resp BP Pulse Ox
98.1 F 64 18 136/67 94
03/02/24 07:30 03/02/24 07:30 03/02/24 07:30 03/02/24 07:30 03/02/24 07:30
I&O
03/01/24 03/02/24 03/03/24
06:59 06:59 06:59
Intake Total 2970 / 2970 1380 / 1380
Balance 2970 / 2970 1380 / 1380
--- NOTE | 2024-03-02 09:13 | PN.CDI ---
CDI
- -
CDI:
Physician Documentation Request
Admit Date: 02/28/24 02:18
Dear Doctor Mitchell,
Please review the following and provide your response in the progress notes.
Clinical Indicators:
Pt admitted with COVID-19 infection
On admission HR 106, Respirations 33
Please clarify which of the following most accurately describes the status of the patient's infection:
Viral Sepsis-POA
- Systemic manifestations of infection, with 2 or more SIRS criteria which include:
- Fever >100.4 degrees F or hypothermia < 96.8 degrees F
- Leukocytosis - WBC > 12,000 or leukopenia - WBC < 4,000 or > 10% bands
- Tachycardia > 90 beats per minute
- Tachypnea - RR > 20 breaths per minute or PaCO2 , 32mmHg
Source: Merck Manual 2013
COVID-19 Infection Only, Without Systemic Illness
Other ( please specify)
Use of terms such as suspected, likely, concern for, or probable (associated with a specific diagnosis that is being evaluated, monitored, or treated as if it exists) are acceptable and can be coded in the inpatient setting, when documented at the
time of discharge.
Thank you,
Ela Mcfarland RN
CDI Specialist
[place] [facility]
Please use your independent medical judgment in providing your response.
--- NOTE | 2024-03-02 09:22 | PN.CDI ---
CDI
- -
CDI:
Physician Documentation Request
Admit Date: 02/28/24 02:18
Dear Doctor Stephen,
Please review the following and provide your response in the progress notes.
Clinical Indicators:
Pt admitted with COVID-19 infection
Documented per ED, ' Patient noted to be slightly hypoxic at 89 to 90% on room air, granddaughter states that she is typically 95% on room air and she has noted that patient has been 'winded' for at least a day. ...... However, likely consistent
with COPD exacerbation as wheezing is noted.....Will start patient on increased dose of steroids and continue nebulizer treatments.... Acute exacerbation of chronic obstructive pulmonary disease (COPD).....'
Please update the status of COPD exacerbation documented in ED:
COPD exacerbation -resolved
COPD exacerbation-still being monitored/treated
COPD exacerbation -ruled out
Other ( please specify)
Use of terms such as suspected, likely, concern for, or probable (associated with a specific diagnosis that is being evaluated, monitored, or treated as if it exists) are acceptable and can be coded in the inpatient setting, when documented at the
time of discharge.
Thank you,
Ela Mcfarland RN
CDI Specialist
[place] [facility]
Please use your independent medical judgment in providing your response.
[2024-03-02 09:48] LABS: % Basophils 0.1 % (0-2); % Eosinophils 0.1 % (0-6); % Immature Granulocytes 0.4 % (0-0.5); % Lymphocytes 17.9 % (20.5-51.1); % Monocytes 10.4 % (1.7-9.3); % Neutrophils 71.1 % (42.2-75.2); Absolute Lymphocytes 1.9 10^3/uL (1.2-3.4); Absolute Monocytes 1.1 10^3/uL (0.1-0.6); Absolute Neutrophils 7.4 10^3/uL (1.4-6.5); Hematocrit 43.5 % (37.0-47.0); Hemoglobin 13.7 g/dL (12.0-16.0); Mean Corp Hgb Conc. 31.5 g/dL (33.0-37.0); Mean Corpuscular Hgb 25.9 pg (27.0-31.0); Mean Corpuscular Volume 82.2 fL (81.0-99.0); Mean Platelet Volume 9.9 fL (7.4-10.4); Nucleated Red Blood Cells % 0 %; Platelet Count 259 10^3/uL (130-400); Red Blood Cell Count 5.29 10^6/uL (4.20-5.40); White Blood Cell Count 10.4 10^3/uL (4.8-10.8)
[2024-03-02 10:26] LABS: Blood Urea Nitrogen 28 mg/dl (7-17); Calcium 8.2 mg/dl (8.4-10.2); Carbon Dioxide 29 mmol/L (22-30); Chloride 101 mmol/L (98-107); Estimated Creatinine Clearance 33 ml/min; Glucose 74 mg/dl (70-99); Potassium 4.3 mmol/L (3.5-5.1); Sodium 136 mmol/L (135-145); eGFR 52.08
[2024-03-02 15:30] VITALS: BP 149/71
[2024-03-02 15:44] VITALS: PULSE 78; O2SAT 96
--- NOTE | 2024-03-02 15:56 | PTOTSP ---
The patient is ambulating in the room independently with steady gait, expressed understanding of taking breaks as needed with shortness of breath. Patient anticipates returning home when discharged - may benefit from Home PT to ensure return to
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 No PT needs at this time, will sign off.
[2024-03-02] MEDS: PEPCID 20 MG PO (16:58)
[2024-03-02] MEDS: TYLENOL 650 MG PO (16:58)
[2024-03-02] MEDS: ROBITUSSIN AC 5 ML PO (16:58)
[2024-03-02] MEDS: LIPITOR 20 MG PO (16:58)
[2024-03-02] MEDS: XARELTO 20 MG PO (16:59)
[2024-03-02 23:41] VITALS: BP 102/65
[2024-03-03 06:32] VITALS: BMI 22.2
[2024-03-03 07:00] VITALS: BP 154/90
[2024-03-03 08:20] LABS: % Basophils 0.1 % (0-2); % Immature Granulocytes 0.4 % (0-0.5); % Lymphocytes 18.8 % (20.5-51.1); % Monocytes 10.7 % (1.7-9.3); Absolute Lymphocytes 1.9 10^3/uL (1.2-3.4); Absolute Monocytes 1.1 10^3/uL (0.1-0.6); Absolute Neutrophils 6.9 10^3/uL (1.4-6.5); Hematocrit 42.1 % (37.0-47.0); Hemoglobin 13.4 g/dL (12.0-16.0); Mean Corp Hgb Conc. 31.8 g/dL (33.0-37.0); Mean Corpuscular Volume 81.6 fL (81.0-99.0); Nucleated Red Blood Cells % 0 %; Platelet Count 262 10^3/uL (130-400); Red Blood Cell Count 5.16 10^6/uL (4.20-5.40); Red Cell Dist. Width 15.7 % (11.5-14.5); White Blood Cell Count 9.9 10^3/uL (4.8-10.8)
[2024-03-03 09:04] LABS: Blood Urea Nitrogen 29 mg/dl (7-17); Calcium 8.5 mg/dl (8.4-10.2); Carbon Dioxide 29 mmol/L (22-30); Chloride 104 mmol/L (98-107); Estimated Creatinine Clearance 33 ml/min; Glucose 108 mg/dl (70-99); Potassium 5.2 mmol/L (3.5-5.1); Sodium 138 mmol/L (135-145); eGFR 52.08
[2024-03-03] MEDS: DECADRON 6 MG PO (09:06)
[2024-03-03] MEDS: MOLNUPIRAVIR (EUA) 800 MG PO ×2 (09:07→21:13)
--- NOTE | 2024-03-03 09:54 | W.PN.HOSP.TC ---
Today's Communication/Plan
-
Seroquel trial. Stop steroids. Stop Dilaudid and codeine.
Assessment / Plan
Assessment / Plan
Gen: NAD, AAOx3.
Eyes: EOMI, PERRLA, no scleral icterus.
Neck: supple.
CV: RRR, +S1/S2, no m/r/g.
Resp: Decreased breath sounds bilateral. Limited airflow. No rales, wheezes, or rhonchi.
Abd: +BS, soft, NT, ND
Skin: No rashes.
Neuro: Alert, disoriented, CN 2-12 intact, no gross neurological deficit
Psych: Normal mood and affect but limited insight today.
CXR: Right basilar atelectasis/scarring. No evidence of pneumonia or overt edema. Mild emphysematous changes within the bilateral upper lobes.
CT brain: No acute intracranial abnormality noted.
CTA Head: No large vessel occlusion. No significant arterial stenosis. No aneurysm. Minimal mucosal thickening of the left maxillary sinus.
CTA Neck: There is mixed density atherosclerotic plaque of the left carotid bifurcation/proximal ICA with resultant 30% stenosis by NASCET criteria.
Mild centrilobular emphysematous changes of the bilateral upper lobes.
A/P:
Acute hypoxemic respiratory insufficiency due to acute COVID infection:
-CXR without infiltrated
-Stop Decadron since she is on room air and she is having delirium
-Continue Monupiravir
-Continue cough meds but change around as below
-PT OT eval
Toxic-metabolic encephalopathy:
Mostly in hospital delirium and medications
CT head and CTA of the head and neck upon admission reviewed and unremarkable
For now we will discontinue codeine for cough I will change to Robitussin
Also will discontinue IV Dilaudid
Also will stop steroids-she get dexamethasone 6 mg today already. Tomorrow will place her back on her oral prednisone home doses of 5 mg depending on her course
Discussed with family also to include a trial of low-dose of antipsychotic with Seroquel and they agree. Will start Seroquel 25 mg p.o. daily and can discontinue short-term.
Tremors:
Acute on chronic
Discontinue all medications that can contribute
CKD:
Creatinine 1.1 from 1.3
Avoid nephrotoxic
Repeat renal function in a.m.
Viral sepsis due to pneumonia, POA
Other problems:
COPD with Acute Exacerbation, still being monitor and treated: Albuterol PRN and finish course of steroids
CAD: cont statin
h/o CVA: cont Statin/Xarelto
PAF (? diagnosis): cont Xarelto
CKD3
h/o DVT/PE: cont Xarelto
FULL/Xarelto
Anticipated Discharge: 24 - 48 hours
Subjective/Interval History
-
Date of Service: March 03, 2024
Patient respiratory status improved but mentation is worse. She is alert but disoriented. Tremors more pronounced
Objective Data
-
Labs:
Laboratory Results
03/03/24
07:28
WBC 9.9
Hgb 13.4
Hct 42.1
Plt Count 262
Sodium 138
Potassium 5.2 H
Chloride 104
Carbon Dioxide 29
BUN 29 H
Creatinine 1.1 H
Glucose 108 H
Calcium 8.5
Vital Signs:
Vital Signs
Temp Pulse Resp BP Pulse Ox
98.6 F 77 18 154/90 98
03/03/24 07:00 03/03/24 07:00 03/03/24 07:00 03/03/24 07:00 03/03/24 07:00
I&O
03/02/24 03/03/24 03/04/24
06:59 06:59 06:59
Intake Total 1380 / 1380 1320 / 1320
Balance 1380 / 1380 1320 / 1320
[2024-03-03 10:59] LABS: Potassium 4.1 mmol/L (3.5-5.1)
[2024-03-03 15:00] VITALS: BP 155/71
[2024-03-03 16:39] VITALS: BP 135/65; PULSE 59; O2SAT 97
[2024-03-03] MEDS: LIPITOR 20 MG PO (17:03)
[2024-03-03] MEDS: XARELTO 20 MG PO (17:03)
[2024-03-03] MEDS: PEPCID 20 MG PO (17:03)
[2024-03-03] MEDS: SEROQUEL 25 MG PO (21:13)
[2024-03-03 23:55] VITALS: BP 135/70
[2024-03-04 07:28] VITALS: BP 124/60
--- NOTE | 2024-03-04 07:32 | W.PN.HOSP.TC ---
Today's Communication/Plan
-
Continue Seroquel. Neurology eval.
Assessment / Plan
Assessment / Plan
Gen: NAD, AAOx3.
Eyes: EOMI, PERRLA, no scleral icterus.
Neck: supple.
CV: RRR, +S1/S2, no m/r/g.
Resp: Decreased breath sounds bilateral. Limited airflow. No rales, wheezes, or rhonchi.
Abd: +BS, soft, NT, ND
Skin: No rashes.
Neuro: Alert, disoriented, CN 2-12 intact, no gross neurological deficit
Psych: Normal mood and affect but limited insight today.
CXR: Right basilar atelectasis/scarring. No evidence of pneumonia or overt edema. Mild emphysematous changes within the bilateral upper lobes.
CT brain: No acute intracranial abnormality noted.
CTA Head: No large vessel occlusion. No significant arterial stenosis. No aneurysm. Minimal mucosal thickening of the left maxillary sinus.
CTA Neck: There is mixed density atherosclerotic plaque of the left carotid bifurcation/proximal ICA with resultant 30% stenosis by NASCET criteria.
Mild centrilobular emphysematous changes of the bilateral upper lobes.
A/P:
Acute hypoxemic respiratory insufficiency due to acute COVID infection:
-CXR without infiltrated
-Stopped Decadron since she is on room air and she is having delirium. Will resume her home steroids tomorrow.
-Finish course of Monupiravir today
-Continue cough meds but change around as below
-PT OT eval
Toxic-metabolic encephalopathy:
Mostly in hospital delirium and medications
CT head and CTA of the head and neck upon admission reviewed and unremarkable
For now we will discontinue codeine for cough I will change to Robitussin
Also will discontinue IV Dilaudid
Also will stop steroids-she get dexamethasone 6 mg daily. No steroids today. Tomorrow will place her back on her oral prednisone home doses of 5 mg depending on her course
Discussed with family also to include a trial of low-dose of antipsychotic with Seroquel and they agree. Started her on Seroquel 25 mg p.o. daily and can discontinue short-term. Seems to be working so we will continue for now.
Neurology eval
Tremors:
Acute on chronic
Discontinue all medications that can contribute
Neurology consult for further evaluation
CKD:
Creatinine 1.0 from 1.3
Avoid nephrotoxic
Viral sepsis due to pneumonia, POA
Other problems:
COPD with Acute Exacerbation, still being monitor and treated: Albuterol PRN and finished course of steroids
CAD: cont statin
h/o CVA: cont Statin/Xarelto
PAF (? diagnosis): cont Xarelto
CKD3
h/o DVT/PE: cont Xarelto
FULL/Xarelto
Anticipated Discharge: Within 24 hours
Subjective/Interval History
-
Date of Service: March 04, 2024
Patient more alert and oriented today. Still having tremors and if anything that is worse. Remains on room air. No chest pain or shortness of breath. Afebrile
Objective Data
-
Labs:
Laboratory Results
03/04/24
06:44
WBC Pending
Hgb Pending
Hct Pending
Plt Count Pending
Sodium Pending
Potassium Pending
Chloride Pending
Carbon Dioxide Pending
BUN Pending
Creatinine Pending
Glucose Pending
Calcium Pending
Vital Signs:
Vital Signs
Temp Pulse Resp BP Pulse Ox
98.3 F 64 16 124/60 98
03/04/24 07:28 03/04/24 07:28 03/04/24 07:28 03/04/24 07:28 03/04/24 07:28
I&O
03/03/24 03/04/24 03/05/24
06:59 06:59 06:59
Intake Total 1320 / 1320 1530 / 1530
Balance 1320 / 1320 1530 / 1530
[2024-03-04 07:42] LABS: % Basophils 0.2 % (0-2); % Immature Granulocytes 0.5 % (0-0.5); % Lymphocytes 19.9 % (20.5-51.1); % Monocytes 9.4 % (1.7-9.3); Absolute Immature Granulocytes 0.1 10^3/uL (0-0.05); Absolute Lymphocytes 1.9 10^3/uL (1.2-3.4); Absolute Monocytes 0.9 10^3/uL (0.1-0.6); Absolute Neutrophils 6.7 10^3/uL (1.4-6.5); Hematocrit 43.2 % (37.0-47.0); Hemoglobin 13.8 g/dL (12.0-16.0); Mean Corp Hgb Conc. 31.9 g/dL (33.0-37.0); Mean Corpuscular Hgb 25.7 pg (27.0-31.0); Mean Corpuscular Volume 80.4 fL (81.0-99.0); Mean Platelet Volume 9.9 fL (7.4-10.4); Nucleated Red Blood Cells % 0 %; Platelet Count 260 10^3/uL (130-400); Red Blood Cell Count 5.37 10^6/uL (4.20-5.40); Red Cell Dist. Width 15.6 % (11.5-14.5); White Blood Cell Count 9.6 10^3/uL (4.8-10.8)
[2024-03-04 08:12] LABS: Blood Urea Nitrogen 27 mg/dl (7-17); Calcium 8.4 mg/dl (8.4-10.2); Carbon Dioxide 26 mmol/L (22-30); Chloride 104 mmol/L (98-107); Estimated Creatinine Clearance 36 ml/min; Glucose 107 mg/dl (70-99); Potassium 4.7 mmol/L (3.5-5.1); Sodium 137 mmol/L (135-145); eGFR 58.39
[2024-03-04] MEDS: TUMS CHEWABLE TABLET 200 MG PO (09:07)
[2024-03-04] MEDS: PEPCID 20 MG PO (09:07)
[2024-03-04] MEDS: MOLNUPIRAVIR (EUA) 800 MG PO ×2 (09:07→20:46)
--- NOTE | 2024-03-04 12:48 | CM ---
Chart reviewed.
Steroids stopped. Off O2
Pt is currently COVID positive
Per PT/OT, no skilled therapy needed. May benefit from home PT
Plan: Home w/ HH if agreeable to at d/c
[2024-03-04 15:18] VITALS: BP 118/52
[2024-03-04] MEDS: XARELTO 20 MG PO (17:15)
[2024-03-04] MEDS: LIPITOR 20 MG PO (17:15)
[2024-03-04] MEDS: SEROQUEL 25 MG PO (20:46)
[2024-03-04 23:49] VITALS: BP 91/56
[2024-03-05 07:15] VITALS: BP 119/62
[2024-03-05] MEDS: PEPCID 20 MG PO (09:50)
--- NOTE | 2024-03-05 10:17 | W.PN.HOSP.TC ---
Today's Communication/Plan
-
Sinemet. Gabapentin.
Assessment / Plan
Assessment / Plan
Gen: NAD, AAOx3.
Eyes: EOMI, PERRLA, no scleral icterus.
Neck: supple.
CV: RRR, +S1/S2, no m/r/g.
Resp: Decreased breath sounds bilateral. Limited airflow. No rales, wheezes, or rhonchi.
Abd: +BS, soft, NT, ND
Skin: No rashes.
Neuro: Alert, disoriented, CN 2-12 intact, no gross neurological deficit
Psych: Normal mood and affect but limited insight today.
CXR: Right basilar atelectasis/scarring. No evidence of pneumonia or overt edema. Mild emphysematous changes within the bilateral upper lobes.
CT brain: No acute intracranial abnormality noted.
CTA Head: No large vessel occlusion. No significant arterial stenosis. No aneurysm. Minimal mucosal thickening of the left maxillary sinus.
CTA Neck: There is mixed density atherosclerotic plaque of the left carotid bifurcation/proximal ICA with resultant 30% stenosis by NASCET criteria.
Mild centrilobular emphysematous changes of the bilateral upper lobes.
A/P:
Acute hypoxemic respiratory insufficiency due to acute COVID infection:
-Improved
-CXR without infiltrated
-Stopped Decadron since she is on room air and she is having delirium. Will resume her home steroids today, only 5 mg of prednisone daily.
-Finish course of Monupiravir on 03/04
-Continue cough meds but change around as below
-PT OT eval
-Discussed with neurology today on 03/05
-Discussed with granddaughter today on 03/05
Toxic-metabolic encephalopathy:
Mostly in hospital delirium and medications
CT head and CTA of the head and neck upon admission reviewed and unremarkable
For now we will discontinue codeine for cough I will change to Robitussin
Also will discontinue IV Dilaudid
Also will stop steroids-she get dexamethasone 6 mg daily. No steroids today. Today will place her back on her oral prednisone home doses of 5 mg depending on her course
She did well with Seroquel but now will discontinue.
Tremors, likely Parkinson's:
Neurology consult appreciated
Neurology will start her on Sinemet today
Ulnar neuropathy:
Start gabapentin
Continue to monitor
CKD:
Creatinine 1.0 from 1.3
Avoid nephrotoxic
Viral sepsis due to pneumonia, POA
Other problems:
COPD with Acute Exacerbation, still being monitor and treated: Albuterol PRN and finished course of steroids
CAD: cont statin
h/o CVA: cont Statin/Xarelto
PAF (? diagnosis): cont Xarelto
CKD3
h/o DVT/PE: cont Xarelto
FULL/Xarelto
Total time spent on today's encounter was 52 minutes which included time spent in counseling the patient/family regarding diagnosis and treatment plan as listed above, goals of care, and symptom management. Case was discussed with nursing staff,
specialists, and care coordinators/case management. All labs and imaging personally reviewed by me. Remainder the time spent in detailed review of previous records, lab data, imaging, and other medical provider documentation.
Anticipated Discharge: 24 - 48 hours
Subjective/Interval History
-
Date of Service: March 05, 2024
Patient alertness has improving cognition. Her tremors have stayed the same. On room air and afebrile.
Objective Data
-
Vital Signs:
Vital Signs
Temp Pulse Resp BP Pulse Ox
98.0 F 72 16 119/62 96
03/05/24 07:15 03/05/24 07:15 03/05/24 07:15 03/05/24 07:15 03/05/24 07:15
I&O
03/04/24 03/05/24 03/06/24
06:59 06:59 06:59
Intake Total 1530 / 1530 960 / 960
Balance 1530 / 1530 960 / 960
--- NOTE | 2024-03-05 11:45 | CON.NEURO ---
Neuro Assessment/Plan
Assessment
tremor due to Parkinson's disease, discussed with patient, will start
Right ulnar neuropathy, neuropathic pain start gabapentin 100 mg TID
Plan
Sinemet 25-100 TID
gabapentin 100 mg TID
Consultation
Order
Date of Consultation: 03/05/24
Requesting Provider: Tj Mitchell
Reason for Consult: Tremor
Subjective/Objective
Subjective Data
Date of Service: March 05, 2024
She is a 78 year old woman admitted with COPD exacerbation, covid-10, treated with monupiravir
complains of long standing tremors, which have recently worsened as part of her acute illness. admits to slow movement, walking slower in recent years
also complains pain and paresthesias in right hand, digits 4-5
Objective Data
Vital Signs
Temp Pulse Resp BP Pulse Ox
36.7 C 72 16 119/62 95
03/05/24 07:15 03/05/24 07:15 03/05/24 07:15 03/05/24 07:15 03/05/24 10:00
Lab Results
03/04/24 06:44
03/04/24 06:44
PT 13.7 Sec (11.4-14.6) 02/27/24 20:53
INR 1.00 02/27/24 20:53
APTT 30.3 Sec (23.4-35.0) 02/27/24 20:53
Sodium 137 mmol/L (135-145) 03/04/24 06:44
Potassium 4.7 mmol/L (3.5-5.1) 03/04/24 06:44
BUN 27 mg/dl (7-17) H 03/04/24 06:44
Glucose 107 mg/dl (70-99) H 03/04/24 06:44
Calcium 8.4 mg/dl (8.4-10.2) 03/04/24 06:44
Patient Allergies
No Known Allergies Allergy (Verified 12/07/22 15:13)
Physical Exam
-
AAO x3 speech mildly dysarthric
VFF, EOMI, face symmetric
diffuse muscle atrophy, + rest tremor, +cogwheel rigidity, +bradykinesia
full strength b/l UE/LE
sensation decreased right digit 5 and 1/2 of digit 4
DTR 1+ symmetric
Medications
-
Active Medications
Generic Name Dose Route Start Last Admin
Trade Name Freq PRN Reason Stop Dose Admin
Acetaminophen 650 mg 02/28/24 02:56 03/02/24 16:58
Acetaminophen 325 Mg Tablet PO 03/27/24 02:55 650 mg
Q4HPRN PRN Administration
Mild Pain / Temp > 101
Albuterol 2 puff 02/28/24 02:56
Albuterol Hfa [90 Mcg/Dose] Inhaler INH
R Q4HPRN PRN
Cough / SOB
Protocol
Atorvastatin Calcium 20 mg 02/29/24 18:00 03/04/24 17:15
Atorvastatin (Lipitor) 20 Mg Tablet PO 03/28/24 17:59 20 mg
QPM KITTY Administration
Carbidopa/Levodopa 1 tablet 03/05/24 16:00
Carbidopa (25 Mg)/Levodopa (100 Mg) Regular Release Tablet PO 04/02/24 15:59
TID KITTY
Famotidine 20 mg 03/04/24 09:00 03/05/24 09:50
Famotidine 20 Mg Tablet PO 04/01/24 08:59 20 mg
DAILY KITTY Administration
Gabapentin 100 mg 03/05/24 16:00
Gabapentin 100 Mg Capsule PO 04/02/24 15:59
TID KITTY
Guaifenesin 100 mg 03/03/24 14:11
Guaifenesin Oral Solution (200 Mg/10 Ml) Cup PO 03/31/24 14:10
Q4HPRN PRN
cough
Quetiapine Fumarate 25 mg 03/03/24 22:00 03/04/24 20:46
Quetiapine 25 Mg Tablet PO 03/31/24 21:59 25 mg
HS KITTY Administration
Rivaroxaban 20 mg 02/28/24 18:00 03/04/24 17:15
Rivaroxaban 20 Mg Tablet PO 03/27/24 17:59 20 mg
QPM KITTY Administration
Sodium Chloride 0 flush 02/28/24 04:00
Sodium Chloride 0.9% (Flush) Syringe IV 03/27/24 03:59
PER PROTOCOL KITTY
Home Medications
�Medication �Instructions �Recorded
rivaroxaban 20 mg tablet (Xarelto) 20 mg PO QPM DVT/PE 12/03/21
atorvastatin 20 mg tablet 20 mg PO QPM High Cholesterol 12/07/22
ipratropium 0.5 mg-albuterol 3 mg 3 ml inhalation R TID 01/28/23
(2.5 mg base)/3 mL nebulization Lung/Breathing Issues
soln
famotidine 20 mg tablet (Pepcid) 20 mg PO QPM Gastrointestinal Issue 04/07/23
acetaminophen 500 mg tablet 500 mg PO Q6HPRN PRN mild pain 02/27/24
(Tylenol Extra Strength)
budesonide 0.5 mg/2 mL suspension 0.5 mg inhalation R BID 02/27/24
for nebulization Lung/Breathing Issues
prednisone 5 mg tablet 5 mg PO QPM INFLAMMATION 02/27/24
rizatriptan 10 mg tablet 10 mg PO DAILYPRN PRN headache 02/27/24
[2024-03-05 15:56] VITALS: BP 147/64
[2024-03-05] MEDS: SINEMET 25-100 PO (16:00)
--- NOTE | 2024-03-05 16:40 | CM ---
CM spoke with patient's primary contact/granddaughter via phone; explained that home health recommended; agency options discussed; preference i [facility]; referral sent via [facility]
[2024-03-05] MEDS: LIPITOR 20 MG PO (18:13)
[2024-03-05] MEDS: NEURONTIN PO (18:13)
[2024-03-05] MEDS: XARELTO 20 MG PO (18:14)
--- NOTE | 2024-03-05 19:16 | PTCARENOTE ---
Received patient AAOx2- forgetful. Pt has history of dementia. Pt OOB ambulating in room independently with a steady gait. Pt vomited x1 after lunch. Pt was unable to take [address] Mitchell made aware. Prednisone ordered to start now on
03/06. Pt tolerated dinner well. Pt able to tolerated 1800 medications. Made patient comfortable. Cont to assess patient status.
[2024-03-05] MEDS: SINEMET 25-100 1 TABLET PO (21:11)
[2024-03-05] MEDS: NEURONTIN 100 MG PO (21:11)
[2024-03-05 23:17] VITALS: BP 118/57
[2024-03-06 07:00] VITALS: BP 108/72
[2024-03-06 07:02] LABS: % Basophils 0.4 % (0-2); % Immature Granulocytes 1.3 % (0-0.5); % Lymphocytes 27.7 % (20.5-51.1); % Monocytes 8.8 % (1.7-9.3); % Neutrophils 58.8 % (42.2-75.2); Absolute Basophils 0.1 10^3/uL (0-0.2); Absolute Eosinophils 0.4 10^3/uL (0-0.7); Absolute Immature Granulocytes 0.2 10^3/uL (0-0.05); Absolute Lymphocytes 3.7 10^3/uL (1.2-3.4); Absolute Monocytes 1.2 10^3/uL (0.1-0.6); Absolute Neutrophils 7.9 10^3/uL (1.4-6.5); Hematocrit 46.7 % (37.0-47.0); Hemoglobin 15.2 g/dL (12.0-16.0); Mean Corp Hgb Conc. 32.5 g/dL (33.0-37.0); Mean Corpuscular Hgb 26.2 pg (27.0-31.0); Mean Corpuscular Volume 80.4 fL (81.0-99.0); Mean Platelet Volume 9.9 fL (7.4-10.4); Nucleated Red Blood Cells % 0 %; Platelet Count 295 10^3/uL (130-400); Red Blood Cell Count 5.81 10^6/uL (4.20-5.40); Red Cell Dist. Width 15.9 % (11.5-14.5); White Blood Cell Count 13.5 10^3/uL (4.8-10.8)
[2024-03-06 07:35] LABS: Blood Urea Nitrogen 29 mg/dl (7-17); Calcium 8.2 mg/dl (8.4-10.2); Carbon Dioxide 27 mmol/L (22-30); Chloride 103 mmol/L (98-107); Estimated Creatinine Clearance 26 ml/min; Glucose 95 mg/dl (70-99); Sodium 138 mmol/L (135-145); eGFR 38.99
[2024-03-06] MEDS: NEURONTIN 100 MG PO ×3 (08:06→22:21)
[2024-03-06] MEDS: DELTASONE 5 MG PO (08:06)
[2024-03-06] MEDS: SINEMET 25-100 1 TABLET PO (08:06)
[2024-03-06] MEDS: PEPCID 20 MG PO (08:06)
[2024-03-06] MEDS: ZOFRAN 4 MG IV (08:07)
[2024-03-06] MEDS: TYLENOL 650 MG PO (08:07)
--- NOTE | 2024-03-06 09:44 | W.PN.HOSP.TC ---
Today's Communication/Plan
-
PPI. IVF. Check UA. Continue Sinemet
Assessment / Plan
Assessment / Plan
Gen: NAD, AAOx3.
Eyes: EOMI, PERRLA, no scleral icterus.
Neck: supple.
CV: RRR, +S1/S2, no m/r/g.
Resp: Decreased breath sounds bilateral. Limited airflow. No rales, wheezes, or rhonchi.
Abd: +BS, soft, NT, ND
Skin: No rashes.
Neuro: Alert, disoriented, CN 2-12 intact, no gross neurological deficit
Psych: Normal mood and affect but limited insight today.
CXR: Right basilar atelectasis/scarring. No evidence of pneumonia or overt edema. Mild emphysematous changes within the bilateral upper lobes.
CT brain: No acute intracranial abnormality noted.
CTA Head: No large vessel occlusion. No significant arterial stenosis. No aneurysm. Minimal mucosal thickening of the left maxillary sinus.
CTA Neck: There is mixed density atherosclerotic plaque of the left carotid bifurcation/proximal ICA with resultant 30% stenosis by NASCET criteria.
Mild centrilobular emphysematous changes of the bilateral upper lobes.
A/P:
Persistent nausea and vomiting abdominal discomfort (gastritis versus UTI versus other intra-abdominal pathology) and leukocytosis (unclear if reactive to steroids or infection):
Downgrade diet to clear liquid diet today
She did say that there was one 'white pill' that made her feel sick but I went over with the nurse and reviewing her list and cannot identify which one she is referring to.
Started on an IV PPI twice daily
Obtain ultrasound of the abdomen
Obtain UA and urine culture if indicated
Check blood cultures and lactic acid
If UA is abnormal, might start antibiotics for UTI but hold off on to urine sample
Follow trend of WBC and temperature curve
Parkinson's-new diagnosis:
Neurology consult appreciated and will need follow-up as outpatient
Continue Sinemet and increased doses today
Ulnar neuropathy:
Cont gabapentin
Continue to monitor
Acute hypoxemic respiratory insufficiency due to acute COVID infection:
-Improved
-CXR without infiltrated
-Stopped Decadron since she is on room air and she is having delirium. Resumed her home 5 mg of prednisone daily.
-Finish course of Molnupiravir on 03/04
-Continue cough meds but change around as below
-PT OT eval
-Discussed with neurology today on 03/06 and recommends to continue Sinemet
-Discussed with granddaughter yesterday
Toxic-metabolic encephalopathy:
Improved
Mostly in hospital delirium and medications
CT head and CTA of the head and neck upon admission reviewed and unremarkable
Discontinued codeine and changed to Robitussin
Discontinued IV Dilaudid
Also stopped dexamethasone 6 mg daily. No steroids today. Today will place her back on her oral prednisone home doses of 5 mg depending on her course
She did well with Seroquel but now discontinued.
SANDER on CKD:
IV fluid today
Creatinine 1.4 from 1.0
Avoid nephrotoxic
US kidney
Viral sepsis due to pneumonia, POA
Other problems:
COPD with Acute Exacerbation-resolved
CAD: cont statin
h/o CVA: cont Statin/Xarelto
PAF (? diagnosis): cont Xarelto
CKD3
h/o DVT/PE: cont Xarelto
FULL/Xarelto
Total time spent on today's encounter was 52 minutes which included time spent in counseling the patient/family regarding diagnosis and treatment plan as listed above, goals of care, and symptom management. Case was discussed with nursing staff,
specialists, and care coordinators/case management. All labs and imaging personally reviewed by me. Remainder the time spent in detailed review of previous records, lab data, imaging, and other medical provider documentation.
Anticipated Discharge: 24 - 48 hours
Subjective/Interval History
-
Date of Service: March 06, 2024
Patient feels her tremors are less today. She is also more mobile. She remains alert. She does have a lot of nausea and vomiting last evening. Also abdominal discomfort in the suprapubic area although denies dysuria urgency or frequency.
Objective Data
-
Labs:
Laboratory Results
03/06/24
06:42
WBC 13.5 H
Hgb 15.2
Hct 46.7
Plt Count 295
Sodium 138
Potassium 4.0
Chloride 103
Carbon Dioxide 27
BUN 29 H
Creatinine 1.4 H
Glucose 95
Calcium 8.2 L
Vital Signs:
Vital Signs
Temp Pulse Resp BP Pulse Ox
98 F 82 17 108/72 96
03/06/24 07:00 03/06/24 07:00 03/06/24 07:00 03/06/24 07:00 03/06/24 07:00
I&O
03/05/24 03/06/24 03/07/24
06:59 06:59 06:59
Intake Total 960 / 960 1140 / 1140
Balance 960 / 960 1140 / 1140
[2024-03-06] MEDS: NSS 1000 IV (10:32)
[2024-03-06] MEDS: PROTONIX IV 40 MG IV ×2 (13:09→22:20)
[2024-03-06] MEDS: NSS (PRESERVATIVE FREE) 10 ML IV ×2 (13:10→22:21)
--- NOTE | 2024-03-06 13:56 | W.PN.NEURO.1 ---
Today's Communication / Plan
-
Sinemet 25-100 increase to 1.5 tab TID
gabapentin 100 mg TID
Neuro Assessment/Plan
Assessment
tremor due to Parkinson's disease, discussed with patient, family
Right ulnar neuropathy, neuropathic pain gabapentin 100 mg TID
Plan
Sinemet 25-100 increase to 1.5 tab TID
gabapentin 100 mg TID
Subjective/Objective
Subjective Data
Date of Service: March 06, 2024
tremor improved. still some intermittently
Objective Data
Vital Signs
Temp Pulse Resp BP Pulse Ox
36.6 C 82 17 108/72 96
03/06/24 07:00 03/06/24 07:00 03/06/24 07:00 03/06/24 07:00 03/06/24 08:25
Lab Results
03/06/24 06:42
03/06/24 06:42
PT 13.7 Sec (11.4-14.6) 02/27/24 20:53
INR 1.00 02/27/24 20:53
APTT 30.3 Sec (23.4-35.0) 02/27/24 20:53
Sodium 138 mmol/L (135-145) 03/06/24 06:42
Potassium 4.0 mmol/L (3.5-5.1) 03/06/24 06:42
BUN 29 mg/dl (7-17) H 03/06/24 06:42
Glucose 95 mg/dl (70-99) 03/06/24 06:42
Calcium 8.2 mg/dl (8.4-10.2) L 03/06/24 06:42
Patient Allergies
No Known Allergies Allergy (Verified 12/07/22 15:13)
Physical Exam
-
AAO x3 speech mildly dysarthric
VFF, EOMI, face symmetric
diffuse muscle atrophy, + rest tremor, +cogwheel rigidity, +bradykinesia
full strength b/l UE/LE
sensation decreased right digit 5 and 1/2 of digit 4
DTR 1+ symmetric
[2024-03-06 13:57] LABS: Lactic Acid 1.5 mmol/L (0.7-2.0)
[2024-03-06 14:00] LABS: ALT (SGPT) < 10 U/L (0-35); AST (SGOT) 21 U/L (14-36); Albumin 3.5 g/dl (3.5-5.0); Alkaline Phosphatase 92 U/L (38-126); Lipase 53 U/L (23-300); Total Bilirubin 1.2 mg/dl (0.2-1.3); Total Protein 5.9 g/dl (6.3-8.2)
[2024-03-06 15:00] VITALS: BP 94/52
[2024-03-06] MEDS: SINEMET 25-100 1.5 TABLET PO (16:14)
[2024-03-06 16:42] LABS: Urine Albumin Trace (Neg - Trace); Urine Bilirubin Negative (Negative); Urine Character Clear (Clear); Urine Color Yellow; Urine Glucose Negative (Negative); Urine Ketone Negative (Negative); Urine Leukocyte Negative (Negative); Urine Nitrite Negative (Negative); Urine Occult Blood Negative (Negative); Urine Specific Gravity 1.015 (<1.030); Urine Urobilinogen Negative (Neg - 1+)
--- NOTE | 2024-03-06 16:57 | PTCARENOTE ---
Pt's nausea complaints have improved after receiving Protonix. Will continue to monitor.
[2024-03-06] MEDS: XARELTO 20 MG PO (17:14)
[2024-03-06] MEDS: LIPITOR 20 MG PO (17:14)
--- NOTE | 2024-03-06 20:50 | RR ---
Patient's family members expressed concerns that patient may be showing signs of a stroke. Family members noted that she seemed more confused than usual and thought her speech seemed more garbled and had a slight facial droop. This RN performed an
NIHSS assessment on the patient and the score was a 6. FIDENCIO Cabral notified. A rapid response was called. Upon assessment, NIHSS was scored as a 3. Patient's deficits were found to be consistent with her diagnoses of Parkinson's and
Alzheimer's. Care ongoing.
--- NOTE | 2024-03-06 21:59 | RR ---
A Rapid Response was called on this patient, please see Rapid Response form.
[2024-03-06 23:35] VITALS: BP 123/66
--- NOTE | 2024-03-07 03:14 | W.PN.UPDATE ---
Update Note
Progress Note Update
Rapid response called at 9:32 pm, as family (granddaughter) insisted that patient's speech was more slurred and patient had slight right facial droop. RN scored NIH at 6 due to slurred speech, right facial droop, weakness b/l upper extremities,
ataxia. When patient evaluated by Rapid Response team, no noted facial droop, speech not slurred, patient w/ataxia from parkinson's. VSS. NIH 0. No need for CT head as no new symptoms noted. Will continue to monitor overnight.
[2024-03-07] MEDS: NSS 1000 IV ×2 (04:14→12:36)
[2024-03-07 06:08] LABS: % Basophils 0.2 % (0-2); % Eosinophils 3.4 % (0-6); % Immature Granulocytes 1.6 % (0-0.5); % Lymphocytes 25.9 % (20.5-51.1); % Monocytes 9.4 % (1.7-9.3); % Neutrophils 59.5 % (42.2-75.2); Absolute Eosinophils 0.3 10^3/uL (0-0.7); Absolute Immature Granulocytes 0.2 10^3/uL (0-0.05); Absolute Lymphocytes 2.6 10^3/uL (1.2-3.4); Absolute Monocytes 0.9 10^3/uL (0.1-0.6); Hematocrit 40.8 % (37.0-47.0); Hemoglobin 13.4 g/dL (12.0-16.0); Mean Corp Hgb Conc. 32.8 g/dL (33.0-37.0); Mean Corpuscular Hgb 26.3 pg (27.0-31.0); Mean Platelet Volume 9.8 fL (7.4-10.4); Nucleated Red Blood Cells % 0 %; Platelet Count 251 10^3/uL (130-400); Red Cell Dist. Width 15.2 % (11.5-14.5); White Blood Cell Count 10.1 10^3/uL (4.8-10.8)
[2024-03-07 06:33] LABS: Blood Urea Nitrogen 21 mg/dl (7-17); Calcium 7.7 mg/dl (8.4-10.2); Carbon Dioxide 24 mmol/L (22-30); Chloride 109 mmol/L (98-107); Estimated Creatinine Clearance 28 ml/min; Glucose 78 mg/dl (70-99); Potassium 4.2 mmol/L (3.5-5.1); Sodium 138 mmol/L (135-145); eGFR 42.62
[2024-03-07 07:00] VITALS: BP 120/56
--- NOTE | 2024-03-07 08:28 | W.PN.HOSP.TC ---
Today's Communication/Plan
-
Advance diet today. Neurology to reeval today
Assessment / Plan
Assessment / Plan
Gen: NAD, AAOx3.
Eyes: EOMI, PERRLA, no scleral icterus.
Neck: supple.
CV: RRR, +S1/S2, no m/r/g.
Resp: Decreased breath sounds bilateral. Limited airflow. No rales, wheezes, or rhonchi.
Abd: +BS, soft, NT, ND
Skin: No rashes.
Neuro: Alert, disoriented, CN 2-12 intact, no gross neurological deficit
Psych: Normal mood and affect.
CXR: Right basilar atelectasis/scarring. No evidence of pneumonia or overt edema. Mild emphysematous changes within the bilateral upper lobes.
CT brain: No acute intracranial abnormality noted.
CTA Head: No large vessel occlusion. No significant arterial stenosis. No aneurysm. Minimal mucosal thickening of the left maxillary sinus.
CTA Neck: There is mixed density atherosclerotic plaque of the left carotid bifurcation/proximal ICA with resultant 30% stenosis by NASCET criteria.
Mild centrilobular emphysematous changes of the bilateral upper lobes.
A/P:
Nausea and vomiting:
Resolved
Advance to regular diet today if tolerates
Continue PPI and antiemetics as needed
Stroke-like symptoms last night:
Suspect delirium related, probably gabapentin too.
Appears neurologically intact today but we will follow-up neurology reevaluation to see if requires further workup or not in regards to stroke.
Parkinson's-new diagnosis:
Neurology consult appreciated and will need follow-up as outpatient
Continue Sinemet per neurology
Ulnar neuropathy:
Cont gabapentin
Continue to monitor
Leukocytosis:
Likely reactive
Urinalysis unremarkable
Blood cultures no growth
Acute hypoxemic respiratory insufficiency due to acute COVID infection:
-Improved
-CXR without infiltrated
-Stopped Decadron since she is on room air and she is having delirium. Resumed her home 5 mg of prednisone daily.
-Finish course of Molnupiravir on 03/04
-Continue cough meds but change around as below
-PT OT eval
-Discussed with neurology today on 03/06 and recommends to continue Sinemet
-Discussed with granddaughter yesterday
Toxic-metabolic encephalopathy:
Improved
Mostly in hospital delirium and medications
CT head and CTA of the head and neck upon admission reviewed and unremarkable
Discontinued codeine and changed to Robitussin
Discontinued IV Dilaudid
Also stopped dexamethasone 6 mg daily. No steroids today. Today will place her back on her oral prednisone home doses of 5 mg depending on her course
She did well with Seroquel but now discontinued.
SANDER on CKD:
Stop IV fluids and encourage oral intake
Creatinine 1.3 today
Avoid nephrotoxic
US kidney unremarkable
Other problems:
Viral sepsis due to pneumonia, POA
COPD with Acute Exacerbation-resolved
CAD: cont statin
h/o CVA: cont Statin/Xarelto
PAF (? diagnosis): cont Xarelto
CKD3
h/o DVT/PE: cont Xarelto
FULL/Xarelto
Anticipated Discharge: 24 - 48 hours
Subjective/Interval History
-
Date of Service: March 07, 2024
Patient had stroke-like symptoms last night. Today she is alert and although she is tired and weak and a bit off but no neuro-deficits appreciated. Her nausea and vomiting resolved.
Objective Data
-
Labs:
Laboratory Results
03/07/24
05:54
WBC 10.1
Hgb 13.4
Hct 40.8
Plt Count 251
Sodium 138
Potassium 4.2
Chloride 109 H
Carbon Dioxide 24
BUN 21 H
Creatinine 1.3 H
Glucose 78
Calcium 7.7 L
Vital Signs:
Vital Signs
Temp Pulse Resp BP Pulse Ox
97.8 F 59 20 123/66 93
03/06/24 23:35 03/06/24 23:35 03/06/24 23:35 03/06/24 23:35 03/07/24 02:49
I&O
03/06/24 03/07/24 03/08/24
06:59 06:59 06:59
Intake Total 1140 / 1140 680 / 680
Output Total 175 / 175
Balance 1140 / 1140 505 / 505
[2024-03-07] MEDS: PROTONIX IV 40 MG IV ×2 (09:08→21:27)
[2024-03-07] MEDS: NEURONTIN 100 MG PO ×3 (09:09→21:44)
[2024-03-07] MEDS: NSS (PRESERVATIVE FREE) 10 ML IV ×2 (09:09→21:27)
[2024-03-07] MEDS: SINEMET 25-100 1.5 TABLET PO ×3 (09:10→17:19)
[2024-03-07] MEDS: DELTASONE 5 MG PO (09:10)
[2024-03-07 16:06] VITALS: BP 105/54
[2024-03-07] MEDS: XARELTO 20 MG PO (17:19)
[2024-03-07] MEDS: LIPITOR 20 MG PO (17:20)
--- NOTE | 2024-03-07 17:51 | W.PN.NEURO.1 ---
Today's Communication / Plan
-
no need for further workup
Neuro Assessment/Plan
Assessment
tremor due to Parkinson's disease, continue Sinemet 25-100 1.5 tab TID
Right ulnar neuropathy, neuropathic pain gabapentin 100 mg TID
episode of slurred speech, ?facial droop, hospital delirium would be more likely than TIA, and even if this were a TIA, she is already anticoagulated with Xarelto, already had CTA on admission, and I don't believe MRI would change anything
Plan
Sinemet 25-100 1.5 tab TID
gabapentin 100 mg TID
Subjective/Objective
Subjective Data
Date of Service: March 07, 2024
overnight with episode of slurred speech, right facial droop, stroke alert called, and when evaluated by [facility]ILN no deficits noted, no facial droop, speech was clear
feels tremors are now controlled.
Objective Data
Vital Signs
Temp Pulse Resp BP Pulse Ox
36.6 C 73 18 105/54 97
03/07/24 15:45 03/07/24 16:06 03/07/24 15:45 03/07/24 16:06 03/07/24 15:45
Lab Results
03/07/24 05:54
03/07/24 05:54
PT 13.7 Sec (11.4-14.6) 02/27/24 20:53
INR 1.00 02/27/24 20:53
APTT 30.3 Sec (23.4-35.0) 02/27/24 20:53
Sodium 138 mmol/L (135-145) 03/07/24 05:54
Potassium 4.2 mmol/L (3.5-5.1) 03/07/24 05:54
BUN 21 mg/dl (7-17) H 03/07/24 05:54
Glucose 78 mg/dl (70-99) 03/07/24 05:54
Calcium 7.7 mg/dl (8.4-10.2) L 03/07/24 05:54
Patient Allergies
No Known Allergies Allergy (Verified 12/07/22 15:13)
Physical Exam
-
AAO x3 speech mildly dysarthric
VFF, EOMI, face symmetric
diffuse muscle atrophy, no tremor, +cogwheel rigidity, +bradykinesia
full strength b/l UE/LE
sensation decreased right digit 5 and 1/2 of digit 4
DTR 1+ symmetric
[2024-03-07] MEDS: SEROQUEL 25 MG PO (21:27)
[2024-03-07 23:45] VITALS: BP 131/71
[2024-03-08 06:25] LABS: % Basophils 0.2 % (0-2); % Eosinophils 3.4 % (0-6); % Immature Granulocytes 1.6 % (0-0.5); % Lymphocytes 25.6 % (20.5-51.1); % Monocytes 8.3 % (1.7-9.3); % Neutrophils 60.9 % (42.2-75.2); Absolute Eosinophils 0.3 10^3/uL (0-0.7); Absolute Immature Granulocytes 0.2 10^3/uL (0-0.05); Absolute Lymphocytes 2.3 10^3/uL (1.2-3.4); Absolute Monocytes 0.8 10^3/uL (0.1-0.6); Absolute Neutrophils 5.6 10^3/uL (1.4-6.5); Hemoglobin 12.4 g/dL (12.0-16.0); Mean Corp Hgb Conc. 32.6 g/dL (33.0-37.0); Mean Corpuscular Hgb 26.3 pg (27.0-31.0); Mean Corpuscular Volume 80.7 fL (81.0-99.0); Nucleated Red Blood Cells % 0 %; Platelet Count 227 10^3/uL (130-400); Red Blood Cell Count 4.71 10^6/uL (4.20-5.40); Red Cell Dist. Width 15.5 % (11.5-14.5); White Blood Cell Count 9.2 10^3/uL (4.8-10.8)
[2024-03-08 06:46] LABS: Blood Urea Nitrogen 17 mg/dl (7-17); Calcium 7.5 mg/dl (8.4-10.2); Carbon Dioxide 24 mmol/L (22-30); Chloride 110 mmol/L (98-107); Estimated Creatinine Clearance 30 ml/min; Glucose 79 mg/dl (70-99); Potassium 4.1 mmol/L (3.5-5.1); Sodium 140 mmol/L (135-145); eGFR 46.91
[2024-03-08 07:47] VITALS: BP 134/65
--- NOTE | 2024-03-08 08:10 | W.PN.HOSP.TC ---
Today's Communication/Plan
-
Patient has been able to tolerate a regular diet and will be discharged today with instructions to follow up with Neurology in the outpatient setting.
Assessment / Plan
Assessment / Plan
Assessment:
78 year old female with a past medical history significant for COPD, CKD, and prior CVA came to the hospital with complaint of cough and headache. Patient was diagnosed with acute hypoxemic respiratory insufficiency due to acute COVID infection.
Patient's viral illness has improved but was newly diagnosed with Parkinson's during the visit and started on medication as per neurology. Patient had an episode of slurred speech and facial droop while in the hospital that was thought to be due to
hospital delirium.
Plan:
#Nausea and vomiting:
-Resolved
-Advanced to Regular diet
-Continue PPI and antiemetics as needed
#Stroke-like symptoms possibly secondary to hospital delirium or medications
-Suspect delirium related, probably gabapentin too.
-No further workup as per Neuro, input appreciated
#Parkinson's-new diagnosis:
-tremors most likely due to Parkinson's disease
-Neurology consult appreciated and will need follow-up as outpatient
-Continue Sinemet per neurology
#Ulnar neuropathy:
-Cont gabapentin
-Continue to monitor for any changes
#Leukocytosis:
Likely reactive
Urinalysis unremarkable
Blood cultures no growth
-Resolved
#Acute hypoxemic respiratory insufficiency due to acute COVID infection:
-Improved
-CXR without infiltrated
-Was having deliriums with Decadron so was stopped. Her home 5 mg of prednisone daily was resumed.
-Finish course of Molnupiravir on /
-Continue cough meds
-PT OT eval
-Neuro input appreciated, recommended to continue Sinemet
#Toxic-metabolic encephalopathy:
-Improved
-Mostly in hospital delirium and medications
-CT head and CTA of the head and neck upon admission reviewed and unremarkable
-Discontinued codeine and changed to Robitussin
-Discontinued IV Dilaudid
-Continue oral prednisone home doses of 5 mg
-Seroquel was discontinued
#SANDER on CKD:
-Stop IV fluids and encourage oral intake
-Creatinine 1.2 today
-Avoid nephrotoxic
-US kidney unremarkable
#Viral sepsis due to pneumonia, POA
#COPD with Acute Exacerbation-resolved
#CAD
-cont statin
#h/o CVA
-cont Statin/Xarelto
#PAF
-cont Xarelto
#CKD3
#h/o DVT/PE: cont Xarelto
Full Code
DVT Prophylaxis: Xarelto
Anticipated Discharge: Today
Subjective/Interval History
-
Date of Service: March 08, 2024
Patient was feeling a bit weak but says her condition has been much better than when she came in. Overall her only complaint was discomfort in her hand.
Objective Data
-
Labs:
Laboratory Results
03/08/24
06:03
WBC 9.2
Hgb 12.4
Hct 38.0
Plt Count 227
Sodium 140
Potassium 4.1
Chloride 110 H
Carbon Dioxide 24
BUN 17
Creatinine 1.2 H
Glucose 79
Calcium 7.5 L
Vital Signs:
Vital Signs
Temp Pulse Resp BP Pulse Ox
98.0 F 56 18 134/65 95
03/08/24 07:47 03/08/24 07:47 03/08/24 07:47 03/08/24 07:47 03/08/24 07:47
I&O
03/07/24 03/08/24 03/09/24
06:59 06:59 06:59
Intake Total 680 / 680 480 / 480
Output Total 175 / 175
Balance 505 / 505 480 / 480
Review of Systems
-
History Source: Patient
Constitutional: Reports Fatigue; Denies No Appetite or Sleep Disturbance
EENT: Reports No Symptoms Reported
Respiratory: Reports Cough
Cardiac: Reports No Symptoms
Abdomen/GI: Denies Abdominal Pain, Nausea or Vomiting
Genitourinary: Reports No Symptoms
Musculoskeletal: Reports Other (tremors)
Skin: Reports No Symptoms
Neuro: Reports No Symptoms
Endocrine: Reports No Symptoms
Hematologic / Lymphatic: Reports No Symptoms
Allergy / Immunology: Reports No Symptoms
Physical Exam
-
General: No Apparent Distress and Comfortable
HEENT: Normocephalic, Atraumatic and Moist Mucous Membranes
Respiratory: Clear to Auscultation and Non Labored Respirations
Cardiac: Regular Rhythm and S1/S2
GI: Soft, Nontender and Nondistended
Musculoskeletal: No Clubbing, No Cyanosis and No Edema
Skin: Warm and Dry
Neuro: Awake, Alert, Oriented, AO x 3 and Tremors
Psych: Calm
[2024-03-08] MEDS: NSS (PRESERVATIVE FREE) 10 ML IV (09:21)
[2024-03-08] MEDS: PROTONIX IV 40 MG IV (09:21)
[2024-03-08] MEDS: NEURONTIN 100 MG PO (09:22)
[2024-03-08] MEDS: SINEMET 25-100 1.5 TABLET PO ×2 (09:22→12:12)
[2024-03-08] MEDS: DELTASONE 5 MG PO (09:22)
[2024-03-08] MEDS: FLUSH (NSS) 2 FLUSH IV (09:25)
[2024-03-08] MEDS: ZOFRAN 4 MG IV (09:28)
[2024-03-08] MEDS: TYLENOL 650 MG PO (09:40)
--- NOTE | 2024-03-08 09:51 | VNURNOTE ---
Home Health Liaison spoke with patient's primary contact, granddaughter Berta, to discuss [facility] nurse/therapy, visits, schedule and homebound status. She is familiar with our services and is agreeable and understands that visits at home will be 2-3
x per week to assess and teach medical management. Andrea has [facility] contact information. She is aware that [facility] will contact them for start of care in 1-2 days after discharge from . [facility] referral completed in [facility].
--- NOTE | 2024-03-08 10:34 | W.PN.UPDATE ---
Update Note
Progress Note Update
I saw and evaluated the patient. I reviewed the resident�s note and agree with findings and plan as documented in the resident�s note.
Patient complains of dry mouth and feeling unwell.
Gen: NAD, AAOx3.
Eyes: EOMI, PERRLA, no scleral icterus.
Neck: supple.
CV: RRR, +S1/S2, no m/r/g.
Resp: CTAB, no rales, wheezes, or rhonchi.
Abd: +BS, soft, NT, ND
Skin: No rashes.
Neuro: CN 2-12 intact, non-focal, dyskinetic movements of the lower extremities.
Psych: Normal mood and affect.
CXR: Right basilar atelectasis/scarring. No evidence of pneumonia or overt edema. Mild emphysematous changes within the bilateral upper lobes.
CT brain: No acute intracranial abnormality noted.
CTA Head: No large vessel occlusion. No significant arterial stenosis. No aneurysm. Minimal mucosal thickening of the left maxillary sinus.
CTA Neck: There is mixed density atherosclerotic plaque of the left carotid bifurcation/proximal ICA with resultant 30% stenosis by NASCET criteria. Mild centrilobular emphysematous changes of the bilateral upper lobes.
Renal U/S: Small simple left renal cyst.
Abd U/S: No sonographic evidence for cholelithiasis, acute cholecystitis, or biliary obstruction.
Acute hypoxemic respiratory insufficiency due to acute COVID infection:
-Improved
-CXR without infiltrate
-was on Decadron which was stopped as pt was on RA and was having delirium. Resumed home 5 mg of prednisone daily.
-Finish course of Molnupiravir on 03/04/24
Stroke-like symptoms, acute toxic metabolic encephalopathy:
-likely AE of Neurontin/Decadron/codeine/dilaudid as well as related to delirium
-imaging above, and unremarkable
-neurology following
Other problems:
SANDER on CKD3a: resolved, s/p IVFs, renal U/S above and unremarkable, likely Cr will range 1.0-1.4
Parkinson's disease, new diagnosis: cont Sinemet
Ulnar neuropathy: cont gabapentin
Nausea and vomiting, resolved
Leukocytosis, resolved, likely reactive
Viral sepsis, POA
COPD with acute exac: resolved, was on IV Decardon
CAD: cont statin
h/o CVA: cont Statin/Xarelto
PAF (? diagnosis): cont Xarelto
h/o DVT/PE: cont Xarelto
FULL/Xarelto
Medically cleared for discharge. Case management aware.
Total time spent on d/c = 35 min. This included today's physical exam, progress note, review of laboratory and diagnostic data, preparation of discharge documents and prescriptions, and discussions about the pt's hospital course and discharge plan
with the patient and other medical records specialist involved in the patient's care.
--- NOTE | 2024-03-08 11:11 | CM ---
Patient granddaughter requested CM email her the IMM as patient is confused especially about paperwork. Patient plan is home with [facility] to follow. CM awaiting call back from Granddaughter about time and who will be here for milk pickup truck driver. Patient will need
consult referral to [facility] and physician agreed to place order for [facility]. CM will continue to follow for discharge planning needs.
Plan; home with family; [facility]
Patient family to milk pickup truck driver between 12:20-1 and will bring shoes
--- NOTE | 2024-03-08 12:36 | W.DCSUMMARY ---
Discharge Summary
Discharge Data
Date of Admission: 02/28/24
Date of Discharge: 03/08/24
-
Pending Results: No
Additional Pending Results:
Blood Culture Final Report
Hospital Course
Discharging Physician : Dr. Bhavesh Bravo, Dr. Lucrecia Wilkinson
Disposition : Home
Primary care physician : Dr. Kt Morales
Principal Discharge diagnosis : Acute hypoxemic respiratory insufficiency due to acute COVID infection
Chronic Discharge diagnosis : Parkinson's Disease, Ulnar Neuropathy, CKD3, CAD, CVA, PAF, COPD
Hospital Course : 78 year old female with a past medical history significant for COPD, CKD3 and prior CVA presented to [facility] ED complaining of cough and headache on 02/28/2024. Patient's cough had spontaneously started around 3-4 days
before and was a harsh, hacking, non-productive, paroxysmal cough. She developed a severe headache which prompted her visit to the ED. Patient underwent imaging in the ED including CT and CTA of her head which were unremarkable. Patient was found
to be positive for COVID-19, was started on supportive therapy and was admitted to the hospital. Patient received antiviral treatment with Monupiravir along with oxygen and steroids which helped improve her respiratory function. As her respiratory
function improved, patient began having tremors and delirium like symptoms. Neurology was consulted and patient was diagnosed with Parkinson's disease and started on medication. She also had developed Ulnar Neuropathy for which she was started on
Gabapentin. Patient had an incident where her speech became more slurred and had a very slight right facial droop. Patient was evaluated and her symptoms had already resolved. They were thought to be either from TIA or delirium. Afterwards, patient
continued to feel better and was cleared for discharge as she was medically stable. She will be following up with Neurology in the outpatient setting for her Parkinson's disease.
Important imaging findings :
CT Head W/o Iv Contrast (02/27/2024)
No acute intracranial abnormality noted.
CT Head & Neck Angio W/wo IV (02/27/2024)
CTA Head: No large vessel occlusion. No significant arterial stenosis. No aneurysm. Minimal mucosal thickening of the left maxillary sinus.
CTA Neck: There is mixed density atherosclerotic plaque of the left carotid bifurcation/proximal ICA with resultant 30% stenosis by NASCET criteria.
Mild centrilobular emphysematous changes of the bilateral upper lobes.
US Renal Only W/O Bladder (03/06/2024)
Small simple left renal cyst
US Abdomen Complete/Upper (03/06/2024)
No sonographic evidence for cholelithiasis, acute cholecystitis, or biliary obstruction.
Discharge Plan
-
Patient Disposition: Home (Routine Discharge)
Discharge Diagnosis/Procedures: Acute hypoxemic respiratory insufficiency due to acute COVID infection
Diet: Regular
Additional Diets: Thin Liquids
Activity: As tolerated
Driving Restrictions: As prior to admission
Other Services: VN
Referrals:
Daniel Neal MD [Active] -
Kt Morales DO [Family Provider] -
Additional Discharge Medication Instructions: Follow up with Neurology outpatient
Follow up with PCP in one week
Prescriptions:
New
gabapentin 100 mg Capsule
100 mg PO TID 30 Days Qty: 90 1RF
carbidopa-levodopa 25-100 mg Tablet
1.5 tab PO TID @ 0800,1200,1700 30 Days Qty: 135 2RF
guaifenesin 200 mg/5 mL liquid
100 mg PO Q4H PRN (Reason: Cough) Qty: 1000 0RF
quetiapine 25 mg Tablet
25 mg PO HS 30 Days Qty: 30 0RF
Continued
Xarelto 20 mg Tablet
20 mg PO QPM
atorvastatin 20 mg tablet
20 mg PO QPM
ipratropium-albuterol 0.5 mg-3 mg(2.5 mg base)/3 mL Solution For Nebulization
3 ml INHALATION R TID
famotidine [Pepcid] 20 mg Tablet
20 mg PO QPM
prednisone 5 mg Tablet
5 mg PO QPM
acetaminophen [Tylenol Extra Strength] 500 mg Tablet
500 mg PO Q6HPRN PRN (Reason: mild pain)
budesonide 0.5 mg/2 mL Suspension For Nebulization
0.5 mg INHALATION R BID
Discontinued
rizatriptan 10 mg Tablet
10 mg PO DAILYPRN PRN (Reason: headache)
Discharge Orders:
Discharge Patient (As Directed); Ordered 03/08/24
Ordered By: Lucrecia Wilkinson
Discharge Date and Time
Print Language: MONTSERRATIAN
[2024-03-08 13:38] VITALS: BP 123/50
== END 2024-03-08 13:59 | disposition home health service (06) | DRG 871 ==
LOC: 3 WEST ACU 02:18
PROVIDERS: Hospitalist; ADMITTING PHYSICIAN Hospitalist; ATTENDING PHYSICIAN Internal Medicine; CONSULT PHYSICIAN Psychiatry & Neurology Clinical Neurophysiology; EMERGENCY PHYSICIAN Emergency Medicine; FAMILY PHYSICIAN Family Medicine
DX: A41.89 Other specified sepsis (principal); G92.8 Other toxic encephalopathy; J12.82 Pneumonia due to coronavirus disease 2019; U07.1 COVID-19; J98.11 Atelectasis; J44.1 Chronic obstructive pulmonary disease with (acute) exacerbation; N17.9 Acute kidney failure, unspecified; F05 Delirium due to known physiological condition; R09.02 Hypoxemia; G20.A1 Parkinson's disease without dyskinesia, without mention of fluctuations; N18.30 Chronic kidney disease, stage 3 unspecified; I25.10 Atherosclerotic heart disease of native coronary artery without angina pectoris; I48.0 Paroxysmal atrial fibrillation; N28.1 Cyst of kidney, acquired; Z86.73 Personal history of transient ischemic attack (TIA), and cerebral infarction without residual deficits; Z79.01 Long term (current) use of anticoagulants; Z79.899 Other long term (current) drug therapy; Z87.891 Personal history of nicotine dependence
CPT/HCPCS: 70450; 70496; 70498; 71046; 76700; 76775; 80048; 80053; 80076; 81003; 82962; 83605; 83690; 84132; 85025; 85027; 85610; 85730; 87040; 87502; 87811; 93005; 94640; 96374; 96375; 97161; 97165; 99285; Q9967

== ENCOUNTER → 2024-04-09 10:53 | Outpatient (REF) | payer OTHER, SELFPAY ==
[2024-04-09 11:54] LABS: % Basophils 0.3 % (0-2); % Eosinophils 0.7 % (0-6); % Immature Granulocytes 0.4 % (0-0.5); % Lymphocytes 17.4 % (20.5-51.1); % Monocytes 8.5 % (1.7-9.3); % Neutrophils 72.7 % (42.2-75.2); Absolute Eosinophils 0.1 10^3/uL (0-0.7); Absolute Lymphocytes 1.7 10^3/uL (1.2-3.4); Absolute Monocytes 0.8 10^3/uL (0.1-0.6); Absolute Neutrophils 6.9 10^3/uL (1.4-6.5); Erythrocyte Sed Rate 25 mm/hour (0-20); Hematocrit 42.7 % (37.0-47.0); Hemoglobin 13.6 g/dL (12.0-16.0); Mean Corp Hgb Conc. 31.9 g/dL (33.0-37.0); Mean Corpuscular Hgb 26.2 pg (27.0-31.0); Mean Corpuscular Volume 82.3 fL (81.0-99.0); Mean Platelet Volume 9.8 fL (7.4-10.4); Nucleated Red Blood Cells % 0 %; Platelet Count 307 10^3/uL (130-400); Red Blood Cell Count 5.19 10^6/uL (4.20-5.40); Red Cell Dist. Width 16.6 % (11.5-14.5); White Blood Cell Count 9.5 10^3/uL (4.8-10.8)
[2024-04-09 12:12] LABS: ALT (SGPT) < 10 U/L (0-35); AST (SGOT) 21 U/L (14-36); Albumin 4.4 g/dl (3.5-5.0); Alkaline Phosphatase 118 U/L (38-126); Blood Urea Nitrogen 17 mg/dl (7-17); Calcium 9.2 mg/dl (8.4-10.2); Carbon Dioxide 26 mmol/L (22-30); Chloride 102 mmol/L (98-107); Glucose 98 mg/dl (70-99); Potassium 3.9 mmol/L (3.5-5.1); Sodium 138 mmol/L (135-145); Total Protein 6.8 g/dl (6.3-8.2); eGFR 46.91
[2024-04-09 12:27] LABS: Free T4 1.63 ng/dl (0.78-2.19)
[2024-04-09 12:33] LABS: Glycohemoglobin (HgbA1c) 6.7 % (4.0-5.6)
[2024-04-09 12:43] LABS: TSH < 0.02 uIU/ml (0.47-4.68)
== END ==
LOC: REG 10:53
PROVIDERS: ATTENDING PHYSICIAN Family Medicine
DX: R41.3 Other amnesia (principal)
CPT/HCPCS: 36415; 80053; 83036; 84439; 84443; 85025; 85652; 87077; 87086; 87147

== ENCOUNTER → 2024-06-02 13:56 | Outpatient (REF) | payer OTHER, SELFPAY ==
[2024-06-02 14:45] LABS: % Basophils 0.3 % (0-2); % Eosinophils 1.9 % (0-6); % Immature Granulocytes 0.4 % (0-0.5); % Lymphocytes 26.3 % (20.5-51.1); % Monocytes 8.4 % (1.7-9.3); % Neutrophils 62.7 % (42.2-75.2); Absolute Eosinophils 0.2 10^3/uL (0-0.7); Absolute Lymphocytes 2.4 10^3/uL (1.2-3.4); Absolute Monocytes 0.8 10^3/uL (0.1-0.6); Absolute Neutrophils 5.6 10^3/uL (1.4-6.5); Hematocrit 44.3 % (37.0-47.0); Hemoglobin 13.8 g/dL (12.0-16.0); Mean Corp Hgb Conc. 31.2 g/dL (33.0-37.0); Mean Corpuscular Hgb 26.1 pg (27.0-31.0); Mean Corpuscular Volume 83.7 fL (81.0-99.0); Mean Platelet Volume 9.7 fL (7.4-10.4); Nucleated Red Blood Cells % 0 %; Platelet Count 277 10^3/uL (130-400); Red Blood Cell Count 5.29 10^6/uL (4.20-5.40); Red Cell Dist. Width 16.4 % (11.5-14.5)
[2024-06-02 15:44] LABS: Iron 84 ug/dl (37-170)
[2024-06-02 15:53] LABS: Percent Saturation 29 % (20-50); Total Iron Binding Capacity 289 ug/dl (265-497)
[2024-06-02 16:18] LABS: Ferritin 51.8 ng/ml (11.1-264.0)
== END ==
LOC: REG 13:56
PROVIDERS: ATTENDING PHYSICIAN Internal Medicine Hematology & Oncology; FAMILY PHYSICIAN Family Medicine
DX: I26.99 Other pulmonary embolism without acute cor pulmonale (principal); Z72.0 Tobacco use; I82.401 Acute embolism and thrombosis of unspecified deep veins of right lower extremity; E61.1 Iron deficiency; R53.83 Other fatigue; Z79.01 Long term (current) use of anticoagulants; R71.8 Other abnormality of red blood cells; D50.9 Iron deficiency anemia, unspecified; R79.9 Abnormal finding of blood chemistry, unspecified
CPT/HCPCS: 36415; 82728; 83540; 83550; 85025

== ENCOUNTER 2024-06-18 18:16 | Observation (INO) | payer OTHER, SELFPAY ==
[2024-06-18] VITALS (11 sets, daily range): BP systolic 106–175; BP diastolic 52–79; BMI 21.4
--- NOTE | 2024-06-18 11:55 | ED.CVA ---
History of Present Illness
General
Chief Complaint: CVA/TIA Symptoms
Source: patient
Exam Limitations: none
Time Seen by Provider: 06/18/24 11:37
Onset of Stroke Symptoms
Onset of symptoms known: No
Time pt last seen normal is known: No
History of Present Illness
History of Present Illness:
78-year-old female on Xarelto with history of DVT, PE Parkinson's and dementia presents from home where she lives with her accompanied by her daughter who states that the patient since yesterday has seemed off. She seems confused. Her
right side of her face has been drooping. She has been slurring her speech at times. Patient tells me she started a new medication last week by her family doctor and is concerned this is a side effect from her medication. She notes numbness to
the right side of her face but denies vision change. She denies unilateral weakness. She denies a headache. Last known baseline was potentially 2 days ago however the history is unclear.
Past History
Past History
ED Past Medical History: COPD, CVA (in 2011, ? TIA in 2018), Hyperthyroidism and Other (PE/DVT's, Alzheimers, Vertigo in 2019)
ED Past Surgical History: Appendectomy, (X 2) and Orthopedic (Cervical spine surgery)
Social History
Tobacco: Former smoker
Alcohol: None
Drug: None
Personal:
Living: with family
Employment: Retired
Family History
Family History: Other (Noncontributory)
Phy Exam
Physical Exam
Physical Exam:
General: Well-appearing female no acute respiratory distress
HEENT: Normocephalic atraumatic subtle right-sided facial droop
Heart: Regular rate and rhythm
Lungs: Clear no wheeze
Neurologic exam: Alert oriented to person and place subtle facial droop on the right side finger-nose symmetric [id number] symmetric no drift bilaterally no obvious dysarthria or aphasia
Extremities: No cyanosis
Course
Orders/Labs/Results
Orders:
Orders
06/18/24 11:53
CT Head W/o Iv Contrast Urgent
Comment:
Reason For Exam: right facial droop, confusion
06/18/24 11:54
Electrocardiogram (*1) Urgent
Reason for Study: TIA/Stroke
EKG- Treatment ONCE
06/18/24 12:23
Complete Blood Count/With Diff Urgent
Comprehensive Metabolic Panel Urgent
Lipase Urgent
Comment: ADD ON
Urinalysis Reflex To Culture Urgent
Date Specimen was Collected: 06/18/24
Time Specimen was Collected: 12:22
Urine Drug Abuse Screen Urgent
Date Specimen was Collected: 06/18/24
Time Specimen was Collected: 12:22
06/18/24 14:03
Add On- LAB Urgent
Tests Added?: lipase
Electrocardiogram (*1) Urgent
Reason for Study: Abdominal Pain
EKG- Treatment ONCE
06/18/24 14:32
Add On- LAB Urgent
Tests Added?: Urine Drug Screen
06/18/24 16:54
Aspirin Chewable [Low Strength Aspirin] 81 mg PO NOW STA
Abnormal Lab Results
06/18/24
12:23
MCH 26.7 L pg
(27.0-31.0)
MCHC 32.4 L g/dL
(33.0-37.0)
RDW 16.7 H %
(11.5-14.5)
Absolute Monos (auto) 0.7 H 10^3/uL
(0.1-0.6)
Immature Gran % 0.6 H %
(0-0.5)
Monocytes % 9.8 H %
(1.7-9.3)
BUN 19 H mg/dl
(7-17)
Creatinine 1.1 H mg/dL
(0.6-1.0)
06/18/24 12:23
06/18/24 12:23
Vital Signs
Initial and Last Documented VS:
Initial Vital Signs
Temp Pulse Resp BP Pulse Ox
98.2 F 72 20 159/73 97
06/18/24 11:19 06/18/24 11:19 06/18/24 11:19 06/18/24 11:19 06/18/24 11:19
Last Documented Vital Signs
Temp Pulse Resp BP Pulse Ox
98.2 F 64 13 137/67 95
06/18/24 11:19 06/18/24 16:15 06/18/24 16:15 06/18/24 16:00 06/18/24 16:15
MDM/Problems Addressed
Differential Diagnosis Includes:
Right-sided facial droop with slurred speech unclear onset but definitely more than 24 hours per the family. History of TIAs per family history of clots. Differential for today could include TIA versus medication reaction versus metabolic
encephalopathy. Labs pending urine pending CT of head ordered.
*Critical Care Note
Total Time (30-74mins, 75-104mins- exclusive of procedures): Not Applicable
Update Note
Update Note:
CT negative. Patient still with subtle right facial droop. Discussed with neurology who saw the patient. Concern for right leg weakness and right facial droop with slurred speech and concern for possible recent stroke. 81 mg of aspirin ordered.
Will admit to hospitalist
ED Attending Note
-
Portions of this chart may have been created with voice recognition software.� Occasional wrong word or��sound alike� substitutions may have occurred due to the inherent limitations of voice recognition software.
Discharge Plan
Departure
Patient Disposition: Admit
Date of Disposition: 06/18/24
Time of Disposition: 16:59
Presentation/result/management discussed w/ accepting MD/DO: Hospitalist
Discharge Problem:
right facial droop
Prescriptions:
No Action
Xarelto 20 mg Tablet
20 mg PO QPM
atorvastatin 20 mg tablet
20 mg PO QPM
ipratropium-albuterol 0.5 mg-3 mg(2.5 mg base)/3 mL Solution For Nebulization
3 ml INHALATION R TID
famotidine [Pepcid] 20 mg Tablet
20 mg PO QPM
prednisone 5 mg Tablet
5 mg PO QPM
acetaminophen [Tylenol Extra Strength] 500 mg Tablet
500 mg PO Q6HPRN PRN (Reason: mild pain)
budesonide 0.5 mg/2 mL Suspension For Nebulization
0.5 mg INHALATION R BID
gabapentin 100 mg Capsule
100 mg PO TID 30 Days Qty: 90 1RF
carbidopa-levodopa 25-100 mg Tablet
1.5 tab PO TID @ 0800,1200,1700 30 Days Qty: 135 2RF
guaifenesin 200 mg/5 mL liquid
100 mg PO Q4H PRN (Reason: Cough) Qty: 1000 0RF
quetiapine 25 mg Tablet
25 mg PO HS 30 Days Qty: 30 0RF
Referrals:
Kt Morales, [Family Provider] -
Interventions
Interventions:
*Risk Screen - Suicide Last Done: 06/18/24 11:23
*General Assessment Last Done: 06/18/24 11:23
*ED- Fall Risk Assessment Last Done: 06/18/24 11:23
*ED COVID-19 Vaccine History Last Done: 06/18/24 11:23
ED- Pulmonary Assessment Last Done: 06/18/24 12:48
ED- Neurological Assessment Last Done: 06/18/24 14:29
ED- Cardiac Assessment Last Done: 06/18/24 12:48
ED Swallowing Screen Last Done: 06/18/24 16:00
Discharge Date and Time
Print Language: FRENCH
[2024-06-18 12:33] LABS: Urine Albumin Negative (Neg - Trace); Urine Bilirubin Negative (Negative); Urine Character Clear (Clear); Urine Color Yellow; Urine Glucose Negative (Negative); Urine Ketone Negative (Negative); Urine Leukocyte Negative (Negative); Urine Nitrite Negative (Negative); Urine Occult Blood Negative (Negative); Urine Specific Gravity 1.015 (<1.030); Urine Urobilinogen Negative (Neg - 1+)
[2024-06-18 12:38] LABS: % Basophils 0.6 % (0-2); % Eosinophils 1.6 % (0-6); % Immature Granulocytes 0.6 % (0-0.5); % Lymphocytes 22.8 % (20.5-51.1); % Monocytes 9.8 % (1.7-9.3); % Neutrophils 64.6 % (42.2-75.2); Absolute Eosinophils 0.1 10^3/uL (0-0.7); Absolute Lymphocytes 1.6 10^3/uL (1.2-3.4); Absolute Monocytes 0.7 10^3/uL (0.1-0.6); Absolute Neutrophils 4.6 10^3/uL (1.4-6.5); Hematocrit 42.9 % (37.0-47.0); Hemoglobin 13.9 g/dL (12.0-16.0); Mean Corp Hgb Conc. 32.4 g/dL (33.0-37.0); Mean Corpuscular Hgb 26.7 pg (27.0-31.0); Mean Corpuscular Volume 82.3 fL (81.0-99.0); Mean Platelet Volume 9.5 fL (7.4-10.4); Nucleated Red Blood Cells % 0 %; Platelet Count 241 10^3/uL (130-400); Red Blood Cell Count 5.21 10^6/uL (4.20-5.40); Red Cell Dist. Width 16.7 % (11.5-14.5); White Blood Cell Count 7.1 10^3/uL (4.8-10.8)
[2024-06-18 12:55] LABS: ALT (SGPT) < 10 U/L (0-35); AST (SGOT) 21 U/L (14-36); Albumin 4.3 g/dl (3.5-5.0); Alkaline Phosphatase 107 U/L (38-126); Blood Urea Nitrogen 19 mg/dl (7-17); Calcium 9.1 mg/dl (8.4-10.2); Carbon Dioxide 27 mmol/L (22-30); Chloride 105 mmol/L (98-107); Glucose 72 mg/dl (70-99); Potassium 4.3 mmol/L (3.5-5.1); Sodium 142 mmol/L (135-145); Total Bilirubin 0.8 mg/dl (0.2-1.3); Total Protein 6.4 g/dl (6.3-8.2); eGFR 52.08
[2024-06-18 14:34] LABS: Lipase 64 U/L (23-300)
--- NOTE | 2024-06-18 15:05 | CON.NEURO ---
Consultation
Order
Date of Consultation: 06/18/24
Requesting Provider: Tj Mitchell MD
Reason for Consult: Altered mental status and worsening tremors
Neurology Consultation Note.
HPI: This is a 78-year-old woman who presented to [facility] on 06/18/2024 with right-sided motor deficits and worsening of encephalopathy.
According to the patient she woke up with her right face feeling numb. No reports of change in vision, strength.
According to patient's daughter the patient was slurring her words when she picked her up at 10:30 AM. At the daughter's house, the patient's right leg was not functioning well, and she was at risk of falling. The patient has a history of TIAs or
strokes in the past, treated at [facility], though the etiology is unknown.
The patient has history of parkinsonism and is under care of Anselmo Alcala MD at [facility] in [place].
Ms. Turner has been experiencing visual hallucinations for approximately two years. She frequently fails to recognize her daughter and granddaughter.
ER VS: 159/73-175/74, 63, afebrile
EKG: NSR, QTc Int : 423 ms
PDMP:none
Labs: Normal sodium, glucose, WBCs, creatinine�1.1, normal urinalysis
CT head wo contrast-no acute intracranial abnormality, mild atrophy
PMH: stroke 2011 and 2018, Parkinson disease, chronic hypoxic respiratory failure, PA A-Fib, CAD, Hyperthyroidism, DLP, CKD, PE/DVT, COPD, noncompliant
PSH: cervical ACDF, cataract surgery, , appendectomy
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
FH: Not contributory
All:NKDA
ROS: Constitutional: Negative. Negative for chills, fever and unexpected weight change.
HENT: Negative for ear pain, hearing loss, tinnitus and trouble swallowing.
Eyes: Negative. Negative for photophobia, pain and visual disturbance.
Respiratory: Negative for cough, choking and shortness of breath.
Cardiovascular: Negative for chest pain, palpitations and leg swelling.
Gastrointestinal: Negative for abdominal pain and vomiting.
Endocrine: Negative. Negative for cold intolerance.
Genitourinary: Negative for dysuria, flank pain and urgency.
Musculoskeletal: Negative for back pain, gait problem, neck pain and neck stiffness.
Skin: Negative for rash.
Allergic/Immunologic: Negative. Negative for immunocompromised state.
Neurological: Positive for chronic left IV-V digit numbness, right face numbness, dyskinesia
Psychiatric/Behavioral: Positive for confusion, visual hallucinations
General: Well developed. In no acute distress.
Cardio: Regular rate and rhythm without murmur. Extremities are without cyanosis or edema.
Neuro:
Mental Status: Alert, oriented to self, year, 'Trump'. Does not know the month, her age, number of children. Poor attention and impaired comprehension. Follows simple requests.
Cranial Nerves: Pupils are equally round, surgical. Mild left is a deviation (congenital) blink to threat bilaterally. No facial weakness. Impaired hearing bilaterally. Minimal dysarthria. No dysphonia
Motor: All limbs are antigravity symmetrically
Reflexes: Bilateral grasp
Sensory: Muted exam due to poor attention
Coordination: Intermittent generalized dyskinesia
Gait: deferred
Assessment and Plan:
I. Right hemimotor�hemisensory symptoms. Rule out acute left subcortical infarct
II. Parkinsonism.? Lewy body disease
III. Dyskinesias
IV. PA AFib
-Fall and delirium precautions
-Hold Xarelto and start aspirin 81 mg once a day
-Brain MRI without
-PT
-Continue home dose of Sinemet
- Further workup will depend on brain MRI result
-DVT prophylaxis.
I personally reviewed all radiology and labs along with past medical records pertinent to current medical problems. Total time spent in patient care is 60 minutes.
Thank you for allowing us to participate in the care of this patient. We will continue to follow. Please do not hesitate to contact us with any questions or concerns.
Subjective/Objective
Subjective Data
Date of Service: June 18, 2024
Objective Data
Vital Signs
Temp Pulse Resp BP Pulse Ox
36.8 C 63 16 175/74 97
06/18/24 11:19 06/18/24 14:00 06/18/24 12:30 06/18/24 12:13 06/18/24 12:48
Lab Results
06/18/24 12:23
06/18/24 12:23
Sodium 142 mmol/L (135-145) 06/18/24 12:23
Potassium 4.3 mmol/L (3.5-5.1) 06/18/24 12:23
BUN 19 mg/dl (7-17) H 06/18/24 12:23
Glucose 72 mg/dl (70-99) 06/18/24 12:23
Calcium 9.1 mg/dl (8.4-10.2) 06/18/24 12:23
Patient Allergies
No Known Allergies Allergy (Verified 12/07/22 15:13)
Medications
-
Home Medications
�Medication �Instructions �Recorded
rivaroxaban 20 mg tablet (Xarelto) 20 mg PO QPM DVT/PE 12/03/21
atorvastatin 20 mg tablet 20 mg PO QPM High Cholesterol 12/07/22
ipratropium 0.5 mg-albuterol 3 mg 3 ml inhalation R TID 01/28/23
(2.5 mg base)/3 mL nebulization Lung/Breathing Issues
soln
famotidine 20 mg tablet (Pepcid) 20 mg PO QPM Gastrointestinal Issue 04/07/23
acetaminophen 500 mg tablet 500 mg PO Q6HPRN PRN mild pain 02/27/24
(Tylenol Extra Strength)
budesonide 0.5 mg/2 mL suspension 0.5 mg inhalation R BID 02/27/24
for nebulization Lung/Breathing Issues
prednisone 5 mg tablet 5 mg PO QPM INFLAMMATION 02/27/24
carbidopa 25 mg-levodopa 100 mg 1.5 tab PO TID @ 0800,1200,1700 30 03/08/24
tablet days #135 tabs
gabapentin 100 mg capsule 100 mg PO TID 30 days #90 caps 03/08/24
guaifenesin 200 mg/5 mL oral liquid 100 mg (2.5 mL) PO Q4H PRN Cough 03/08/24
#1,000 mL
quetiapine 25 mg tablet 25 mg PO HS 30 days #30 tabs 03/08/24
Vital Signs and Labs
-
Vital Signs and Labs:
Vital Signs
Temp Pulse Resp BP Pulse Ox
36.8 C 63 16 175/74 97
06/18/24 11:19 06/18/24 14:00 06/18/24 12:30 06/18/24 12:13 06/18/24 12:48
Lab Results
06/18/24 12:23
06/18/24 12:23
Sodium 142 mmol/L (135-145) 06/18/24 12:23
Potassium 4.3 mmol/L (3.5-5.1) 06/18/24 12:23
BUN 19 mg/dl (7-17) H 06/18/24 12:23
Glucose 72 mg/dl (70-99) 06/18/24 12:23
Calcium 9.1 mg/dl (8.4-10.2) 06/18/24 12:23
Ur Buprenorphine Negative (Negative) 06/18/24 12:23
Home Medications
-
Home Medications
rivaroxaban 20 mg tablet (Xarelto) 20 mg PO QPM DVT/PE 12/03/21
atorvastatin 20 mg tablet 20 mg PO QPM High Cholesterol 12/07/22
ipratropium 0.5 mg-albuterol 3 mg (2.5 mg base)/3 mL nebulization soln 3 ml inhalation R TID Lung/Breathing Issues 01/28/23
famotidine 20 mg tablet (Pepcid) 20 mg PO QPM Gastrointestinal Issue 04/07/23
acetaminophen 500 mg tablet (Tylenol Extra Strength) 500 mg PO Q6HPRN PRN mild pain 02/27/24
budesonide 0.5 mg/2 mL suspension for nebulization 0.5 mg inhalation R BID Lung/Breathing Issues 02/27/24
prednisone 5 mg tablet 5 mg PO QPM INFLAMMATION 02/27/24
carbidopa 25 mg-levodopa 100 mg tablet 1.5 tab PO TID @ 0800,1200,1700 30 days #135 tabs 03/08/24
gabapentin 100 mg capsule 100 mg PO TID 30 days #90 caps 03/08/24
guaifenesin 200 mg/5 mL oral liquid 100 mg (2.5 mL) PO Q4H PRN Cough #1,000 mL 03/08/24
quetiapine 25 mg tablet 25 mg PO HS 30 days #30 tabs 03/08/24
[2024-06-18 15:44] LABS: Amphetamines Negative (Negative); Barbiturates Negative (Negative); Benzodiazepines Negative (Negative); Buprenorphine Negative (Negative); Cocaine Negative (Negative); Methadone Negative (Negative); Methamphetamines Negative (Negative); Opiates Negative (Negative)
[2024-06-18 15:45] LABS: Marijuana Negative (Negative); Phencyclidine Negative (Negative); Tricyclic Antidepressants Negative (Negative)
--- NOTE | 2024-06-18 17:08 | HPS.HSE ---
Family Physician
-
Family Physician: Kt Morales
Chief Complaint
-
Right sided facial droop, slurred speech, dragging right leg
History of Present Illness
78-year-old female with moderate to advanced dementia who was picked up by her daughter Uma today at 1030 who states she noticed her mother pushing her tongue out to the right side of her mouth having difficulty speaking and was dragging her
right leg she was complaining also of some right sided facial numbness she typically has left-sided symptoms and had history of stroke in 2010 so she brought her to the ER for evaluation. In the ER she currently has no neurological deficit right or
left side of the body she has history of dementia is oriented to place but did forget daughter's name kept calling her Berta her granddaughter which is her daughters(Uma) daughter. Patient is aware she lives at home in [place] with her
. Daughter Uma states that her father also has dementia with sundowning they are looking at placement for both of them as her mother cannot be left alone due to wandering. The patient denies current headache, fever, chills, chest pain,
palpitations, cough, shortness of breath, abdominal pain, nausea, vomiting, diarrhea, urinary symptoms. She states she has had hallucinations and sees people she even prepares dinner for them but they are not really there. She saw neurology for
this and was started on risperidone recently. She did have a fall 1 week ago at home EMS did come to the house she had no obvious injury
She has past medical history dementia moderate to advanced with wandering, history of falls, Parkinson's, DVT 08/20/2021, PE December 2021 due to noncompliance Xarelto, CKD 3, CAD, CVA 2010 with left side facial droop history of TIAs typically with
left side facial droop and slurred speech, TIA February 2024 with right side facial droop/slurred speech, PAF during cervical spine fusion at [facility], COPD, former smoker , vertigo�2020 ulnar neuropathy, COVID 19 02/27/2024 treated with
antivirals, steroids and oxygen
Medical History
Past Medical History
Past Medical History: Reports Other
Additional Past Medical History:
COVID 19 02/27/2024 treated with antivirals, steroids and oxygen
Visual hallucinations since COVID February 2024
Parkinson's
Dementia moderate�advanced initial Dx age 70
DVT 08/20/2021
PE December 2021 due to noncompliance Xarelto
CKD 3
CAD
CVA 2010 with left side facial droop history of TIAs typically with left side facial droop and slurred speech
TIA February 2024 with right side facial droop/slurred speech, PAF during cervical spine fusion at [facility]
COPD
Former smoker 57 years 1 pack a day quit 2021
Cervical radiculopathy status post cervical fusion
PAF episode during C-spine surgery at [facility] ruled out during outpatient Holter monitor
HTN
Orthostatic hypotension
vertigo�2019
ulnar neuropathy
Past Surgical History: Reports Other
Additional Past Surgical History:
Cataract in right eye
Cervical spine fusion [facility]
section x 2
Social History
Unable to obtain full social history at this time due to: Other
Tobacco: Former Smoker (57-year 1 pack a day quit 2021)
Alcohol: None
Drug: None
Personal:
Living: With Family (With who also has dementia with sundowning)
Employment: Retired
Family History
Family History: Unable to Obtain and Other
Allergies / Home Medications
Allergies reflects when Allergies were last updated in [employer].
Home Medications with original date entered in [employer]
Allergy/Medication List:
Allergies
Allergy/AdvReac Type Severity Reaction Status Date / Time
No Known Allergies Allergy Verified 12/07/22 15:13
Home Medications
rivaroxaban 20 mg tablet (Xarelto) 20 mg PO QPM DVT/PE 12/03/21
atorvastatin 20 mg tablet 20 mg PO QPM High Cholesterol 12/07/22
ipratropium 0.5 mg-albuterol 3 mg (2.5 mg base)/3 mL nebulization soln 3 ml inhalation R BID Lung/Breathing Issues 01/28/23
famotidine 20 mg tablet (Pepcid) 20 mg PO DAILY Gastrointestinal Issue 04/07/23
budesonide 0.5 mg/2 mL suspension for nebulization 0.5 mg inhalation R BID Lung/Breathing Issues 02/27/24
prednisone 5 mg tablet 5 mg PO DAILY INFLAMMATION 02/27/24
gabapentin 100 mg capsule 100 mg PO TID 30 days #90 caps 03/08/24
carbidopa 25 mg-levodopa 100 mg tablet 2 tab PO TID 06/18/24
risperidone 0.5 mg tablet 0.5 mg PO NOON 06/18/24
Review of Systems
-
History Source: Patient and Family (Daughter Uma at bedside, granddaughter Berta on phone who handles patient's medical affairs)
A 12 point ROS was completed and negative except as noted: Yes
Constitutional: Reports Other (Moderate to advanced dementia is oriented to name, place, aware of her memory impairment did forget her daughter's name for the first time today); Denies Fever, Fatigue or Chills
EENT: Reports Other (Reported slurred speech with right-sided facial droop no longer present on exam); Denies Sore Throat or Runny Nose
Respiratory: Denies Cough or Trouble Breathing
Cardiac: Denies Chest Pain, Diaphoresis, Palpitations or Syncope
Abdomen/GI: Denies Abdominal Pain, Nausea, Vomiting, Diarrhea, Constipated, Bloody Stools or Black Stools
: Denies Dysuria, Frequency, Flank Pain, Incontinence, Difficulty Voiding or Urgency
Musculoskeletal: Denies Joint Pain or Edema
Skin: Denies Itching or Rash
Neurological: Reports Numbness (Right side of face reported); Denies Dizzy, Headache or Weakness
Endocrine: Reports No Symptoms
Hematologic/Lymphatic: Reports No Symptoms
Psych: Reports Calm and Other (Patient gets on and off visual hallucinations sees people since February 2024)
Physical Exam
Vital Signs
Vital Signs
Temp Pulse Resp BP Pulse Ox
98.2 F 64 13 137/67 95
06/18/24 11:19 06/18/24 16:15 06/18/24 16:15 06/18/24 16:00 06/18/24 16:15
Physical Exam
General: Comfortable and Conversant; No Pain, Fever or Chills
HEENT: NormoCephalic, Anicteric, Moist mucous membranes, PERRLA, Morgan Conjunctivae, No Ptosis, Neck Nontender and Other (Face symmetric able to smile, puff cheeks raise eyebrows without difficulty, tongue is midline)
Respiratory: Clear; No Wheezes, Rales or Rhonchi
Cardiac: S1/S2 and Regular Rhythm; No Murmur, Rub, Gallop or Peripheral Edema
Breast: Deferred by me
GI: Soft, Non Tender, Non Distended, Normal Bowel Sounds and No Hepatosplenomegaly
Rectal: Deferred by Provider
Genito-urinary: Deferred by me
Musculoskeletal: No Clubbing, No Cyanosis and No Edema
Skin: Warm and Dry; No Rash
Neuro: No Motor Deficits, Nonfocal/grossly intact, Cranial Nerves Intact, No Sensory Deficits and Other (Moderate to advanced dementia is oriented to name, place, aware of her memory impairment did forget her daughter's name for the first time
today); No Slurred Speech, Facial Droop, Tremors or Sedated
Psych: Calm
Laboratory Results
-
06/18/24 12:23
06/18/24 12:23
Laboratory Results
Total Bilirubin 0.8 mg/dl (0.2-1.3) 06/18/24 12:23
AST 21 U/L (14-36) 06/18/24 12:23
ALT < 10 U/L (0-35) 06/18/24 12:23
Alkaline Phosphatase 107 U/L (38-126) 06/18/24 12:23
Lipase 64 U/L (23-300) 06/18/24 12:23
Data Reviewed
-
CT Scan: Report Reviewed by me
Lab Data: Labs Reviewed by me
Impression/Plan
-
Impression/plan:
Observation telemetry
#Slurred speech/right facial droop, right leg weakness concern for CVA
#Hx CVA
Symptoms x 2 days
Had incident of right facial droop with slurred speech during COVID admission February 2024 with negative workup
UDS negative
- Check lipid profile, HgbA1c
- Aspirin 81 mg given in ER, will start aspirin 81 mg once a day
-Continue atorvastatin 20 mg every afternoon
- Consult neurology
- MRI brain without
- PT/OT/case management consult
CT head: No acute intracranial abnormality
FEBRUARY 27, 2024 imaging studies below:
HX CT Head & Neck Angio W/wo IV (02/27/2024)
CTA Head: No large vessel occlusion. No significant arterial stenosis. No aneurysm.
Minimal mucosal thickening of the left maxillary sinus.
CTA Neck: There is mixed density atherosclerotic plaque of the left carotid bifurcation/proximal ICA with
resultant 30% stenosis by NASCET criteria.
Mild centrilobular emphysematous changes of the bilateral upper lobes.
#Parkinson's disease with prior hand tremors
- Continue carbidopa levodopa
#Dementia moderate to advanced Dx age 70 with Wandering
#Hallucinations started February 27, 2024 during COVID admission
- Patient has visual hallucinations of people visiting her
- Recently started on risperidone by neurology
- Fall precautions due to wandering
#DVT -unprovoked
#PE 12/04/2021 secondary to noncompliance with anticoagulation due to dementia
- Continue Xarelto 20 mg every afternoon
- Followed with outpatient hematology no reported history of coagulopathy workup per granddaughter Berta on phone
#CKD 3B
Creat 1.1 appears baseline
- Follow BMP
#Hx COVID 02/27/2024
Treated inpatient with antivirals oxygen and steroids
#CAD
- Continue atorvastatin 20 mg every afternoon
#PAF was told episode post C-spine fusion at [place]
- Patient wore a monitor after this and PAF was ruled out
# COPD�no acute exacerbation
#Former smoker 57 years 1 pack a day
- Continue budesonide, ipratropium/albuterol
#Vertigo�2020
#Ulnar neuropathy
#Chronic ambulatory dysfunction
- Refuses to use any assistive aids per granddaughter Berta
DVT prophylaxis
Continue CUT OUT WORKER Xarelto
DNR per patient's granddaughter Berta with daughter Uma at bedside states her daughter Berta manages her mother's medical affairs
[2024-06-18] MEDS: PEPCID 20 MG IV (17:19)
[2024-06-18] MEDS: LOW STRENGTH ASPIRIN 81 MG PO (17:19)
[2024-06-18 18:03] LABS: Troponin I < 0.012 ng/ml
--- NOTE | 2024-06-18 18:14 | W.PN.UPDATE ---
Update Note
Progress Note Update
This is an addendum to H&P written by Anne Oneal on 06/18/2024. Patient seen examined independently with SENIOR ACCOUNTING ASSOCIATE.
78-year-old female past medical history of COPD, CKD 3, prior CVA in 2010, Parkinson's disease, dementia, chronic hallucinations, paroxysmal atrial fibrillation on Xarelto, DVT/PE, presenting with right facial droop, slurred speech since yesterday.
Also, with numbness of the right side of the face.
Also with some left-sided abdominal discomfort and bloating which improved with Pepcid likely secondary to dyspepsia. Had bowel movement today.
Vital signs unremarkable.
Labs unremarkable.
CT head shows no acute intracranial abnormality.
Concern for TIA versus CVA. No current symptoms apart from mild numbness of the right lips.
Seen by neurology. Continue Xarelto. Add aspirin. Check MRI brain.
[2024-06-18] MEDS: ATIVAN 0.25 MG IV (19:07)
[2024-06-18] MEDS: NSS (PRESERVATIVE FREE) 0.125 ML IV (19:07)
[2024-06-18] MEDS: DUONEB 3 ML INH (20:27)
[2024-06-18] MEDS: PULMICORT 0.5 MG INH (20:27)
[2024-06-18] MEDS: SINEMET 25-100 2 TABLET PO (21:34)
[2024-06-18] MEDS: RISPERDAL 0.5 MG PO (21:34)
[2024-06-18] MEDS: NEURONTIN 100 MG PO (21:35)
[2024-06-19] VITALS (9 sets, daily range): BP systolic 92–163; BP diastolic 51–95; PULSE 80–88
--- NOTE | 2024-06-19 00:42 | PTCARENOTE ---
Pt transferred to [facility] 06/18 at 1999. Pt ambulated with assistance from stretcher to bed. No c/o pain. Pt is AAOx2 disoriented to time. pt educated on use of call story, bed alarm placed call story within reach.
[2024-06-19] MEDS: PULMICORT 0.5 MG INH ×2 (07:13→19:27)
[2024-06-19] MEDS: DUONEB 3 ML INH ×2 (07:13→19:26)
[2024-06-19 07:47] LABS: % Basophils 0.5 % (0-2); % Eosinophils 3.5 % (0-6); % Immature Granulocytes 0.5 % (0-0.5); % Lymphocytes 23.2 % (20.5-51.1); % Monocytes 9.5 % (1.7-9.3); % Neutrophils 62.8 % (42.2-75.2); Absolute Eosinophils 0.2 10^3/uL (0-0.7); Absolute Lymphocytes 1.5 10^3/uL (1.2-3.4); Absolute Monocytes 0.6 10^3/uL (0.1-0.6); Absolute Neutrophils 4.2 10^3/uL (1.4-6.5); Hematocrit 41.8 % (37.0-47.0); Hemoglobin 13.3 g/dL (12.0-16.0); Mean Corp Hgb Conc. 31.8 g/dL (33.0-37.0); Mean Corpuscular Hgb 26.2 pg (27.0-31.0); Mean Corpuscular Volume 82.4 fL (81.0-99.0); Mean Platelet Volume 9.7 fL (7.4-10.4); Nucleated Red Blood Cells % 0 %; Platelet Count 235 10^3/uL (130-400); Red Blood Cell Count 5.07 10^6/uL (4.20-5.40); Red Cell Dist. Width 16.7 % (11.5-14.5); White Blood Cell Count 6.6 10^3/uL (4.8-10.8)
[2024-06-19 08:34] LABS: ALT (SGPT) < 10 U/L (0-35); AST (SGOT) 20 U/L (14-36); Albumin 3.3 g/dl (3.5-5.0); Alkaline Phosphatase 90 U/L (38-126); Blood Urea Nitrogen 17 mg/dl (7-17); Calcium 8.9 mg/dl (8.4-10.2); Carbon Dioxide 25 mmol/L (22-30); Chloride 109 mmol/L (98-107); Estimated Creatinine Clearance 33 ml/min; Glucose 69 mg/dl (70-99); HDL Cholesterol 63 mg/dl; LDL Cholesterol, Calculated 55 mg/dl; Potassium 4.3 mmol/L (3.5-5.1); Sodium 141 mmol/L (135-145); Total Cholesterol 135 mg/dl (50-199); Total Protein 5.6 g/dl (6.3-8.2); Triglyceride 88 mg/dl (10-149); Very Low Density Lipoprotein 17 mg/dl (0-30); eGFR 52.08
[2024-06-19] MEDS: SINEMET 25-100 2 TABLET PO ×3 (09:04→20:57)
[2024-06-19] MEDS: ASPIR LOW (ENTERIC COATED) 81 MG PO (09:04)
[2024-06-19] MEDS: DELTASONE 5 MG PO (09:04)
[2024-06-19] MEDS: NEURONTIN 100 MG PO ×3 (09:04→20:58)
[2024-06-19] MEDS: PEPCID 20 MG PO (09:04)
--- NOTE | 2024-06-19 09:22 | W.PN.HOSP.TC ---
Addendum entered and electronically signed by Giancarlo Hills DO 06/19/24 13:19:
No further workup recommended by neurology.
Okay to stop aspirin per neurology.
Medically stable for discharge to SNF. Updated case management.
Original Note:
Today's Communication/Plan
-
PT/OT
Assessment / Plan
Assessment / Plan
Gen-AAOx3, NAD
HEENT-NC, AT, anicteric, clear oral mm
Neck-supple
CV-reg, no M, +S1/S2
Lungs-clear B/L
Abd-soft, NT, ND
Ext-no edema
Musculoskeletal-no cyanosis, clubbing
Skin-warm and dry
Neuro-grossly non-focal
Psych-calm, cooperative
TIA - presentation with right hemiparesis, symptoms resolved yesterday. Brain MRI negative. Aspirin added to Xarelto. Neurology consulted.
CTA head and neck February 2024 without large vessel occlusion. Last echocardiogram 2022 in our system.
PT/OT.
History of stroke
Essential hypertension -controlled in the hospital. Recommend monitoring at home as well. Discussed with family.
Hyperlipidemia -atorvastatin.
Parkinson's disease -Sinemet.
Dementia -unknown type.
History of hallucinations
Paroxysmal atrial fibrillation -on Xarelto.
COPD without exacerbation
CKD 3A - stable.
History of VTE
Cervical radiculopathy
DNR
Family updated at the bedside.
Anticipated Discharge: Within 24 hours
Subjective/Interval History
-
Date of Service: June 19, 2024
Patient seen and examined. Right-sided symptoms have resolved. Complaining of paresthesias around mouth.
Objective Data
-
Labs:
Laboratory Results
06/19/24
07:20
WBC 6.6
Hgb 13.3
Hct 41.8
Plt Count 235
Sodium 141
Potassium 4.3
Chloride 109 H
Carbon Dioxide 25
BUN 17
Creatinine 1.1 H
Glucose 69 L
Calcium 8.9
Total Bilirubin 1.0
AST 20
ALT < 10
Alkaline Phosphatase 90
Vital Signs:
Vital Signs
Temp Pulse Resp BP Pulse Ox
98.6 F 80 16 125/59 93
06/19/24 07:00 06/19/24 09:01 06/19/24 07:16 06/19/24 09:01 06/19/24 07:16
I&O
06/18/24 06/19/24 06/20/24
06:59 06:59 06:59
Intake Total 240 / 240
Balance 240 / 240
Review of Systems
-
History Source: Patient
All other systems: Reviewed and negative
--- NOTE | 2024-06-19 09:40 | PTOTSP ---
Speech Therapy Evaluation:
Pt with baseline mild oral dysphagia 2/2 chronic left sided facial weakness with mild anterior loss of PO with intermittent awareness. Also noted prolonged mastication of solids, however functional. No overt s/sx of aspiration throughout PO trials.
Pt benefits from straw/bolus placement on R for compensation. Pt with multiple predisposing risk factors of dysphagia including Parkinson's, Dementia, and CVA. No hx of aspiration PNA per granddaughter report. Pt passed 3oz swallow screen. WBC WNL.
Pt on room air.
Of note, pt's granddaughter reported baseline diet of 'meltable solids/toddler food.' LOOM OPERATOR APPRENTICE educated pt's family on different diet levels offered and consideration for softer solids given reported baseline diet, however pt's daughter/granddaughter
politely declined, expressing pt would lose too much weight. Pt's daughter/granddaughter in verbal agreement to assist pt in softer selections.
Recommend:
1. Continue IDDSI Level 7 (regular) solids and thin liquids
2. Medications crushed vs whole in puree
3. Strict aspiration precautions
4. Close supervision and assistance with tray set up
5. LOOM OPERATOR APPRENTICE to follow to monitor tolerance of current diet and provide education re: compensatory strategies
[2024-06-19 09:58] LABS: Glycohemoglobin (HgbA1c) 6.7 % (4.0-5.6)
--- NOTE | 2024-06-19 10:40 | CM ---
Addendum entered by Alaina Evans 06/19/24 14:21:
SNF referrals sent to [facility]
Addendum entered by Alaina Evans 06/19/24 13:41:
family informed that there are no beds at [facility]
Addendum entered by Alaina Evans 06/19/24 13:11:
Per PT/OT SNF recommended; sent referral via [facility] to [facility] and will send to other site preferences when family identifies
Original Note:
Met with patient and her daughter at bedside
WILKERSON form explained; daughter signed @ 1025
Pharmacy verified: [facility] @ [address] [place] [address]
Patient lives with her spouse in 1st floor/one floor condo; no steps to enter; bath has tub w/shower
PLOF: Per daughter, her parents have dementia; a member of the family is always with them; patient refuses to use a device with ambulation; holds on to the furrniture or a family member when she ambulated; patient needs assistance w/ADLs
Per daughter, patient had a SNF stay in the past year @ [facility]
PT/OT pending; if SNF or Home Health is recommended, daughter/patient is agreeable
Family will transport discharge
Plan: discharge disposition to be determined; CM will montior and support if services needed
--- NOTE | 2024-06-19 11:29 | W.PN.NEURO.1 ---
Today's Communication / Plan
-
.
Subjective/Objective
Subjective Data
Date of Service: June 19, 2024
Neurology follow-up note
Ms. Turner endorses perioral paresthesias. She states that her right facial numbness has lasted for several hours and fully resolved.
No reports of dysphagia.
Brain MRI showed no acute infarct.
PMH: stroke 2011 and 2018, Parkinson disease, chronic hypoxic respiratory failure, PA A-Fib, CAD, Hyperthyroidism, DLP, CKD, PE/DVT, COPD
PSH: cervical ACDF, cataract surgery, , appendectomy
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
FH: Not contributory
All:NKDA
ROS: Constitutional: Negative. Negative for chills, fever and unexpected weight change.
HENT: Negative for ear pain, hearing loss, tinnitus and trouble swallowing.
Eyes: Negative. Negative for photophobia, pain and visual disturbance.
Respiratory: Negative for cough, choking and shortness of breath.
Cardiovascular: Negative for chest pain, palpitations and leg swelling.
Gastrointestinal: Negative for abdominal pain and vomiting.
Endocrine: Negative. Negative for cold intolerance.
Genitourinary: Negative for dysuria, flank pain and urgency.
Musculoskeletal: Negative for back pain, gait problem, neck pain and neck stiffness.
Skin: Negative for rash.
Allergic/Immunologic: Negative. Negative for immunocompromised state.
Neurological: Positive for chronic left IV-V digit numbness, right face numbness, dyskinesia
Psychiatric/Behavioral: Positive for confusion, visual hallucinations
General: Well developed. In no acute distress.
Cardio: Regular rate and rhythm without murmur. Extremities are without cyanosis or edema.
Neuro:
Mental Status: Alert, oriented to self, year, 'Trump'. Does not know the month, her age, number of children. Poor attention and impaired comprehension. Follows simple requests.
Cranial Nerves: Pupils are equally round, surgical. Mild left is a deviation (congenital) blink to threat bilaterally. No facial weakness. Impaired hearing bilaterally. Minimal dysarthria. No dysphonia
Motor: All limbs are antigravity symmetrically
Reflexes: Bilateral grasp
Sensory: Muted exam due to poor attention
Coordination: Intermittent generalized dyskinesia
Gait: deferred
Assessment and Plan:
I. Multifocal paresthesias
II. Parkinsonism.? Lewy body disease
III. PA AFib
IV. History of medication noncompliance
-Medication administration supervision
-Please restart Xarelto and check vitamin B12
-Continue home dose of Sinemet
-Outpatient neurology follow-up
I personally reviewed all radiology and labs along with past medical records pertinent to current medical problems. Total time spent in patient care is 35 minutes.
Thank you for allowing us to participate in the care of this patient. Please do not hesitate to contact us with any questions or concerns.
Objective Data
Vital Signs
Temp Pulse Resp BP Pulse Ox
37.0 C 80 16 125/59 93
06/19/24 07:00 06/19/24 09:01 06/19/24 07:16 06/19/24 09:01 06/19/24 07:16
Lab Results
06/19/24 07:20
06/19/24 07:20
Sodium 141 mmol/L (135-145) 06/19/24 07:20
Potassium 4.3 mmol/L (3.5-5.1) 06/19/24 07:20
BUN 17 mg/dl (7-17) 06/19/24 07:20
Glucose 69 mg/dl (70-99) L 06/19/24 07:20
Calcium 8.9 mg/dl (8.4-10.2) 06/19/24 07:20
LDL Cholesterol, Calc 55 mg/dl 06/19/24 07:20
Ur Buprenorphine Negative (Negative) 06/18/24 12:23
Patient Allergies
No Known Allergies Allergy (Verified 12/07/22 15:13)
Vital Signs and Labs
-
Vital Signs and Labs:
Vital Signs
Temp Pulse Resp BP Pulse Ox
37.0 C 80 16 125/59 93
06/19/24 07:00 06/19/24 09:01 06/19/24 07:16 06/19/24 09:01 06/19/24 07:16
Lab Results
06/19/24 07:20
06/19/24 07:20
Sodium 141 mmol/L (135-145) 06/19/24 07:20
Potassium 4.3 mmol/L (3.5-5.1) 06/19/24 07:20
BUN 17 mg/dl (7-17) 06/19/24 07:20
Glucose 69 mg/dl (70-99) L 06/19/24 07:20
Calcium 8.9 mg/dl (8.4-10.2) 06/19/24 07:20
LDL Cholesterol, Calc 55 mg/dl 06/19/24 07:20
Ur Buprenorphine Negative (Negative) 06/18/24 12:23
Medications
-
Medications:
Generic Name Dose Route Start Last Admin
Trade Name Freq PRN Reason Stop Dose Admin
Acetaminophen 650 mg 06/18/24 20:04
Acetaminophen 325 Mg Tablet PO 07/16/24 20:03
Q4HPRN PRN
mild pain/DUNN/temp> 100.4F
Albuterol/Ipratropium 3 ml 06/18/24 20:04 06/19/24 07:13
Ipratropium 0.5/Albuterol 3 Mg (3 Ml Ampul) INH 3 ml
R BID KITTY Administration
Protocol
Aspirin 81 mg 06/19/24 08:00 06/19/24 09:04
Aspirin 81 Mg (Enteric Coated) Tablet PO 07/17/24 07:59 81 mg
DAILY KITTY Administration
Atorvastatin Calcium 20 mg 06/19/24 18:00
Atorvastatin (Lipitor) 20 Mg Tablet PO 07/17/24 17:59
QPM KITTY
Budesonide 0.5 mg 06/18/24 20:04 06/19/24 07:13
Budesonide (Pulmicort Respules) 0.5 Mg/2 Ml INH 0.5 mg
R BID KITTY Administration
Protocol
Calcium Carbonate 200 mg 06/18/24 20:04
Calcium Antacid 200 Mg (Calcium Carbonate 500 Mg) Chew Tablet PO 07/16/24 20:03
Q6HPRN PRN
indigestion
Carbidopa/Levodopa 2 tablet 06/18/24 22:00 06/19/24 09:04
Carbidopa (25 Mg)/Levodopa (100 Mg) Regular Release Tablet PO 07/16/24 21:59 2 tablet
TID KITTY Administration
Famotidine 20 mg 06/19/24 08:00 06/19/24 09:04
Famotidine 20 Mg Tablet PO 07/17/24 07:59 20 mg
DAILY KITTY Administration
Gabapentin 100 mg 06/18/24 22:00 06/19/24 09:04
Gabapentin 100 Mg Capsule PO 07/16/24 21:59 100 mg
TID KITTY Administration
Prednisone 5 mg 06/19/24 08:00 06/19/24 09:04
Prednisone 5 Mg Tablet PO 07/17/24 07:59 5 mg
DAILY KITTY Administration
Risperidone 0.5 mg 06/18/24 20:04 06/18/24 21:34
Risperidone 0.5 Mg Tablet PO 07/16/24 20:03 0.5 mg
NOON KITTY Administration
Rivaroxaban 20 mg 06/19/24 18:00
Rivaroxaban 20 Mg Tablet PO 07/17/24 17:59
QPM KITTY
Sodium Chloride 0 flush 06/18/24 21:00
Sodium Chloride 0.9% (Flush) Syringe IV 07/16/24 20:59
PER PROTOCOL KITTY
Home Medications
-
Home Medications
rivaroxaban 20 mg tablet (Xarelto) 20 mg PO QPM DVT/PE 12/03/21
atorvastatin 20 mg tablet 20 mg PO QPM High Cholesterol 12/07/22
ipratropium 0.5 mg-albuterol 3 mg (2.5 mg base)/3 mL nebulization soln 3 ml inhalation R BID Lung/Breathing Issues 01/28/23
famotidine 20 mg tablet (Pepcid) 20 mg PO DAILY Gastrointestinal Issue 04/07/23
budesonide 0.5 mg/2 mL suspension for nebulization 0.5 mg inhalation R BID Lung/Breathing Issues 02/27/24
prednisone 5 mg tablet 5 mg PO DAILY INFLAMMATION 02/27/24
gabapentin 100 mg capsule 100 mg PO TID 30 days #90 caps 03/08/24
carbidopa 25 mg-levodopa 100 mg tablet 2 tab PO TID 06/18/24
risperidone 0.5 mg tablet 0.5 mg PO NOON 06/18/24
[2024-06-19 12:06] LABS: Glucose - Point of Care 191 mg/dl (70-99)
[2024-06-19] MEDS: RISPERDAL 0.5 MG PO (12:30)
--- NOTE | 2024-06-19 12:44 | RR ---
A Rapid Response was called on this patient, please see Rapid Response form.
While working with PT, RN was alerted to pt's room to assess change in mental status. Pt was unsteady on feet and said that 'her mouth is numb' around her lips. Pt's daughter at bedside and also noted that she witnessed her mom drooling out of the
right side of her mouth while drinking water. Patient was experiencing weakness in right arm, slight right sided facial droop, and slight slurring of words. RN in room to assess situation. Pt laid back in bed and vitals were taken. Rapid response
was called for change in mental status. Neurologist aware. See rapid response note.
[2024-06-19] MEDS: XARELTO 20 MG PO (17:41)
[2024-06-19] MEDS: LIPITOR 20 MG PO (17:41)
[2024-06-20 03:31] VITALS: BP 114/63
[2024-06-20 07:00] VITALS: BP 115/59
[2024-06-20] MEDS: PEPCID 20 MG PO (07:58)
[2024-06-20] MEDS: DELTASONE 5 MG PO (07:58)
[2024-06-20] MEDS: NEURONTIN 100 MG PO (07:59)
[2024-06-20] MEDS: SINEMET 25-100 2 TABLET PO (07:59)
[2024-06-20] MEDS: PULMICORT 0.5 MG INH (08:09)
[2024-06-20] MEDS: DUONEB 3 ML INH (08:09)
[2024-06-20 11:00] VITALS: BP 123/63
--- NOTE | 2024-06-20 11:18 | W.PN.HOSP.TC ---
Addendum entered and electronically signed by Giancarlo Hills DO 06/20/24 12:18:
Patient and family requesting discharge home with VN. Not interested in SNF. Medically stable for discharge.
Original Note:
Today's Communication/Plan
-
Discharge planning
Assessment / Plan
Assessment / Plan
Gen-AAOx3, NAD
HEENT-NC, AT, anicteric, clear oral mm
Neck-supple
CV-reg, no M, +S1/S2
Lungs-clear B/L
Abd-soft, NT, ND
Ext-no edema
Musculoskeletal-no cyanosis, clubbing
Skin-warm and dry
Neuro-grossly non-focal
Psych-calm, cooperative
TIA - presentation with right hemiparesis, symptoms resolved yesterday. Brain MRI negative. Aspirin added to Xarelto. Neurology consulted.
CTA head and neck February 2024 without large vessel occlusion. Last echocardiogram 2022 in our system.
PT/OT.
History of stroke
Essential hypertension -controlled in the hospital. Recommend monitoring at home as well. Discussed with family.
DM2 without hyperglycemia -hemoglobin A1c 6.7%. Diet controlled.
Hyperlipidemia -atorvastatin.
Parkinson's disease -Sinemet.
Dementia -unknown type.
History of hallucinations
Paroxysmal atrial fibrillation -on Xarelto.
COPD without exacerbation
CKD 3A - stable.
History of VTE
Cervical radiculopathy
DNR
Dispo -medically stable for discharge. Family contemplating SNF versus home with VN, PT.
Family updated at the bedside.
Anticipated Discharge: Within 24 hours
Subjective/Interval History
-
Date of Service: June 20, 2024
Patient seen and examined. No complaints.
Objective Data
-
Vital Signs:
Vital Signs
Temp Pulse Resp BP Pulse Ox
98.5 F 74 18 115/59 94
06/20/24 07:00 06/20/24 08:13 06/20/24 08:13 06/20/24 07:00 06/20/24 08:13
I&O
06/19/24 06/20/24 06/21/24
06:59 06:59 06:59
Intake Total 240 / 240
Balance 240 / 240
Review of Systems
-
History Source: Patient
All other systems: Reviewed and negative
--- NOTE | 2024-06-20 12:17 | W.DS.TRANS ---
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
-
Discharge Instructions:
Discharge Diagnosis/Procedures TIA
Diet Low Cholesterol,Low Fat
Activity As tolerated,With assistance
Driving Restrictions No driving
Bathing Restrictions None
Other Services VN,PT
Instructions:
Stand-Alone Forms:
Changes to Home Medications: No
Discharge Medications:
DC Medications w/original date entered in [facility]
rivaroxaban 20 mg tablet (Xarelto) 20 mg PO QPM DVT/PE 12/03/21
atorvastatin 20 mg tablet 20 mg PO QPM High Cholesterol 12/07/22
ipratropium 0.5 mg-albuterol 3 mg (2.5 mg base)/3 mL nebulization soln 3 ml inhalation R BID Lung/Breathing Issues 01/28/23
famotidine 20 mg tablet (Pepcid) 20 mg PO DAILY Gastrointestinal Issue 04/07/23
budesonide 0.5 mg/2 mL suspension for nebulization 0.5 mg inhalation R BID Lung/Breathing Issues 02/27/24
prednisone 5 mg tablet 5 mg PO DAILY inflammation 02/27/24
gabapentin 100 mg capsule 100 mg PO TID 30 days #90 caps 03/08/24
carbidopa 25 mg-levodopa 100 mg tablet 2 tab PO TID Neurological Condition 06/18/24
risperidone 0.5 mg tablet 0.5 mg PO NOON Neurological Condition 06/18/24
Home Medication Changes
Pending Results: No
[2024-06-20] MEDS: RISPERDAL 0.5 MG PO (12:18)
--- NOTE | 2024-06-20 12:34 | CM ---
Met with patient and daughter at bedside; disposition preference is Home with Home Health services; referral sent to [facility] via [facility] for VN, PT, OT, Speech
Plan: Discharge to home with home health; family will transport home
[2024-06-20 14:48] VITALS: BP 119/78
== END 2024-06-20 15:20 | disposition home health service (06) ==
LOC: 4 WEST ACU 18:16
PROVIDERS: Clinical Nurse Specialist Family Health; Physician Assistant; ADMITTING PHYSICIAN Hospitalist; ATTENDING PHYSICIAN Hospitalist; EMERGENCY PHYSICIAN Emergency Medicine; FAMILY PHYSICIAN Family Medicine; OTHER PHYSICIAN Psychiatry & Neurology Neurology
DX: G45.9 Transient cerebral ischemic attack, unspecified (principal); R41.0 Disorientation, unspecified; G20.A1 Parkinson's disease without dyskinesia, without mention of fluctuations; F02.B2 Dementia in other diseases classified elsewhere, moderate, with psychotic disturbance; G31.83 Neurocognitive disorder with Lewy bodies; R47.81 Slurred speech; G93.40 Encephalopathy, unspecified; R29.810 Facial weakness; R20.0 Anesthesia of skin; R26.2 Difficulty in walking, not elsewhere classified; G81.91 Hemiplegia, unspecified affecting right dominant side; R10.9 Unspecified abdominal pain; J43.2 Centrilobular emphysema; E05.90 Thyrotoxicosis, unspecified without thyrotoxic crisis or storm; I25.10 Atherosclerotic heart disease of native coronary artery without angina pectoris; I12.9 Hypertensive chronic kidney disease with stage 1 through stage 4 chronic kidney disease, or unspecified chronic kidney disease; N18.32 Chronic kidney disease, stage 3b; I48.0 Paroxysmal atrial fibrillation; E11.22 Type 2 diabetes mellitus with diabetic chronic kidney disease; G31.9 Degenerative disease of nervous system, unspecified; J96.11 Chronic respiratory failure with hypoxia; E11.65 Type 2 diabetes mellitus with hyperglycemia; E78.5 Hyperlipidemia, unspecified; M54.12 Radiculopathy, cervical region; Z66 Do not resuscitate; Z98.1 Arthrodesis status; Z91.148 Patient's other noncompliance with medication regimen for other reason; Z86.73 Personal history of transient ischemic attack (TIA), and cerebral infarction without residual deficits; Z90.49 Acquired absence of other specified parts of digestive tract; Z87.891 Personal history of nicotine dependence; Z79.51 Long term (current) use of inhaled steroids; Z79.52 Long term (current) use of systemic steroids; Z86.711 Personal history of pulmonary embolism; Z86.718 Personal history of other venous thrombosis and embolism; Z79.01 Long term (current) use of anticoagulants; Z86.16 Personal history of COVID-19
CPT/HCPCS: 70450; 70551; 80053; 80061; 80306; 81003; 82962; 83036; 83690; 84484; 85025; 92610; 93005; 94640; 96374; 96375; 97163; 97167; 99285; G0378

== ENCOUNTER 2024-07-19 17:22 | Inpatient (IN) | payer OTHER, SELFPAY ==
[2024-07-19] VITALS (8 sets, daily range): BP systolic 131–169; BP diastolic 56–136; BMI 22.2; BMI 21.8
--- NOTE | 2024-07-19 14:02 | ED.CVA ---
History of Present Illness
General
Chief Complaint: CVA/TIA Symptoms
Source: patient and ambulance crew
Exam Limitations: none
Time Seen by Provider: 07/19/24 14:01
Nursing documentation reviewed up to this point in time: agreed with
Onset of Stroke Symptoms
Onset of symptoms known: No
Date of onset of symptoms: 07/19/24
Time pt last seen normal is known: Yes
Date last time pt seen normal: 07/19/24
Time last time pt seen normal: 12:55
History of Present Illness
History of Present Illness:
79-year-old female here from [facility] by EMS for possible CVA. Patient was here 5 days ago for similar symptoms of expressive aphasia, she has A-fib and is on Xarelto.
Staff states she woke up 1:30 PM and staff said she was ataxic with expressive aphasia and facial droop and numbness 'pins and needles feeling' moving from left side of lower lip now to right side. Patient states the symptoms come on and off 'all
the time.'
Granddaughter arrives and states pt went shopping this a.m., no trouble walking, etc, was playing pool with her 12:30, and did well, lay down for a nap at 12:55, when pt woke up at 1:30 PM, she was there and immediately noted right side
facial droop which was new then also noted some slurred speech and patient was complaining of perioral paresthesias.
States pt has had 'four TIA's' in past month.
Had Neg head CT and neg head and neck CTA 02/2024 here when she had similar symptoms.
Had neg head CT here 06/18 with similar symptoms
She was seen at [place] on 07/09 for similar symptoms and had neg head CT and MRI showed 'recent TIA' per granddaughter.
Pt was seen and cleared by cardiology last week
Pt is followed by Neurology at [facility] for Parkinson's and per granddaughter is 'stumped.'
Granddaughter states episodes are getting closer together and each time pt is losing 'pieces of cognition.'
Past History
Past History
ED Past Medical History: COPD, CVA (in 2011, ? TIA in 2018), Hyperthyroidism and Other (PE/DVT's, Alzheimers, Vertigo in 2020)
ED Past Surgical History: Appendectomy, (X 2) and Orthopedic (Cervical spine surgery)
Social History
Tobacco: Former smoker
Alcohol: None
Drug: None
Personal:
Living: assisted living ([facility])
Employment: Retired
Family History
Family History: Other (Noncontributory)
Review of Systems
Review of Systems
Allergies reviewed?: Yes
All Other Systems: ROS reviewed and negative except as documented in HPI and ROS
Constitutional: Reports fatigue; Denies fever
Respiratory: Denies trouble breathing
Cardiac: Denies chest pain or syncope
ABD/GI: Denies abdominal pain, nausea or vomiting
: Denies dysuria, incontinence or difficulty voiding
Musculoskeletal: Reports no symptoms; Denies edema
Skin: Reports no symptoms
Neurological: Reports weakness and numbness (Perioral paresthesias, mild right facial droop); Denies dizzy or headache
Phy Exam
Physical Exam
Physical Exam:
GENERAL: No acute distress. A&Ox3.
CONSTITUTIONAL: Afebrile.
EYES: clear, conjunctivae normal
ENMT: moist mucus membranes, Pharynx nl
RESPIRATORY: Regular respirations, nonlabored, lungs clear.
CARDIOVASCULAR: Regular rate and rhythm, no murmurs, no rubs.
GI: Soft, nontender, normal BS
MUSCULOSKELETAL: Moves with ease. Well perfused.
SKIN: Warm, dry, pink
PSYCH: Normal mood and affect. Well kept, interactive and appropriate
NEUROLOGIC: Awake, alert and oriented. Speech mildly dysarthric, no aphasia. Perioral paresthesias, mild right facial droop, strength equal throughout. No focal neurological deficits
Scores
NIH Stroke Score
Level of Consciousness: 0 - Alert
LOC Questions: 0-Answers both correctly
LOC Commands: 0-Performs both correctly
Best Horizontal Gaze: 0-Normal
Visual Lopez: 0=Normal, no visual loss
Facial Palsy: 1=Minor paralysis
Motor - Right Arm: 0=No drift 10 seconds
Motor - Left Arm: 0=No drift 10 seconds
Motor - Right Le-No drift 5 seconds
Motor - Left Le-No drift 5 seconds
Limb Ataxia: 0-Absent
Sensation: 0-Normal
Best Language: 0-No aphasia
Dysarthria: 1-Mild slurring
Extinction and Inattention: 0-No abnormality
NIH Total Score:: 2
Course
Orders/Labs/Results
Orders:
Orders
07/19/24
Electrocardiogram (*1) Stat
Comment: DONE EMR
07/19/24 14:06
C-Reactive Protein Urgent
Comment: ADD ON
Complete Blood Count/With Diff Urgent
Comprehensive Metabolic Panel Urgent
Erythrocyte Sed Rate Urgent
Comment: ADD ON
07/19/24 14:31
EEG Routine Urgent
Reason for Exam: perioral paresthesia, R facial droop, dysarthria
Neurology Consult: OTHER
Comment: Dr. Neal
07/19/24 14:32
NEUROLOGY CONSULT Urgent
Consulting Provider: Daniel Neal
Was physician already notified: Yes
Reason for consult: perioral paresthesias, R face droop, dysarthria
07/19/24 16:24
IRAD CONSULT Routine
Consulting Provider: Mark Escalera
Was physician already notified: Yes
Procedure being ordered, including laterality if applicable: LP
Acknowledgement that appropriate orders are entered: Yes
Comment: attempt unsuccessful by neurology
07/19/24 16:28
CSF Cell Count Urgent
CSF Tube Number: 3
Spinal Fluid Glucose Urgent
CSF Tube Number: 2
Spinal Fluid Protein Routine
Meningitis Panel, CSF by PCR Urgent
SHERMAN Source: Csf
Specimen Description:
07/19/24 16:54
Admit/Transfer Patient As Directed
Co-Sign Provider:
Level of Care: Inpatient admission
Assign to:: Medical/Surgical
Physician / Group: Marion
Diagnosis: Recurrent Neurologic Symptoms
Reason for Hospitalization: LP, Encephalitis work-up
Expected length of stay greater than two midnights?: Yes
ELOS- Estimated Length of Stay in days: 3
I certify the patient meets the requirements for IP care: Yes
07/19/24 16:56
PRN Pain Medication Management As Directed
May give lesser potent ordered pain med per pt: Yes
preference::
Protocol:: Medication orders for pain may be administered in a
manner that supports deferring to patient preference
when the pt is:
- Requesting an ordered lesser potent pain medication.
Least to most potent pain medications are defined
as: acetaminophen < NSAID < tramadol < opioids
(morphine, oxycodone, hydromorphone).
- Requesting a lesser dose of the same medication IF
ORDERED.
- Requesting a less intrusive route of administration
if both routes are prescribed by the provider (PO <
IV).
07/19/24 17:00
Add On- LAB Urgent
Tests Added?: esr, crp
07/19/24 17:02
Add On- LAB Routine
Tests Added?: HIV
07/19/24 17:13
Folate Urgent
Free T4 Urgent
HIV Combo Urgent
Comment: ADD ON
Syphilis/T. pallidum Ab Reflex Urgent
TSH Reflex To Free T4 Urgent
Vitamin B12 Urgent
07/19/24 21:27
Acetaminophen [Tylenol] 650 mg PO Q4HPRN PRN
Atorvastatin [Lipitor] 20 mg PO QPM
Budesonide [Pulmicort] 0.5 mg INH R BID
Carbidopa/Levodopa [Sinemet 25-100] 2 tablet PO TID@0800,1200,1700
Ipratropium/Albuterol Sulfate [Duoneb] 3 ml INH R BID
07/19/24 21:27
Activity As Directed
Activity Level: Out of Bed-Early Mobility
With Assistance
Pneumatic Compression Sleeves As Directed
Type: Knee high
Vital Signs As Directed
Frequency: Per unit guidelines
Weight As Directed
Frequency: Daily
DX Deep Vein Thrombosis Video Routine
07/19/24 22:00
Gabapentin [Neurontin] 100 mg PO TID
07/20/24 Breakfast
2000 calorie (17 carb) Diabetic
At Your Request: Full Participation
Does patient need a safe tray?: No
07/20/24 07:42
Basic Metabolic Panel IN AM
Complete Blood Count/No Diff IN AM
PT/INR [Prothrombin Time] IN AM
Comment: IRAD procedure
07/20/24 08:00
Aspirin Low Dose EC [Aspir Low (Enteric Coated)] 81 mg PO DAILY
Famotidine [Pepcid] 20 mg PO DAILY
Prednisone [Deltasone] 5 mg PO DAILY
07/20/24 12:00
Risperidone [Risperdal] 0.5 mg PO NOON
07/21/24 08:00
Methimazole [Tapazole] 5 mg PO MoWeFr@0800
Abnormal Lab Results
07/19/24 07/19/24
14:06 17:13
MCH 26.4 L pg
(27.0-31.0)
MCHC 31.7 L g/dL
(33.0-37.0)
RDW 16.5 H %
(11.5-14.5)
Absolute Monos (auto) 0.8 H 10^3/uL
(0.1-0.6)
Chloride 108 H mmol/L
(98-107)
Creatinine 1.1 H mg/dL
(0.6-1.0)
Glucose 160 H mg/dl
(70-99)
Total Protein 5.9 L g/dl
(6.3-8.2)
TSH (Reflex) 0.24 L uIU/ml
(0.47-4.68)
07/19/24 14:06
07/19/24 14:06
Vital Signs
Initial and Last Documented VS:
Initial Vital Signs
Temp Pulse Resp BP Pulse Ox
97.8 F 72 18 134/56 96
07/19/24 14:02 07/19/24 14:02 07/19/24 14:02 07/19/24 14:02 07/19/24 14:02
Last Documented Vital Signs
Temp Pulse Resp BP Pulse Ox
98.5 F 73 16 145/64 94
07/20/24 15:00 07/20/24 15:00 07/20/24 15:00 07/20/24 15:00 07/20/24 15:00
MDM/Problems Addressed
Differential Diagnosis Includes:
CVA, TIA
MDM/Problems Addressed:
79-year-old female here from [facility] by EMS for possible CVA. Patient was here 5 days ago for similar symptoms of expressive aphasia, she has A-fib and is on Xarelto.
Staff states she woke up 1:30 PM and staff said she was ataxic with expressive aphasia and facial droop and numbness 'pins and needles feeling' moving from left side of lower lip now to right side. Patient states the symptoms come on and off 'all
the time.'
Granddaughter arrives and states pt went shopping this a.m., no trouble walking, etc, was playing pool with her 12:30, and did well, lay down for a nap at 12:55, when pt woke up at 1:30 PM, she was there and immediately noted right side
facial droop which was new then also noted some slurred speech and patient was complaining of perioral paresthesias.
States pt has had 'four TIA's' in past month.
Had Neg head CT and neg head and neck CTA 02/2024 here when she had similar symptoms.
Had neg head CT here 06/18 with similar symptoms
She was seen at [place] on 07/09 for similar symptoms and had neg head CT and MRI showed 'recent TIA' per granddaughter.
Pt was seen and cleared by cardiology last week
Pt is followed by Neurology at [facility] for Parkinson's and per granddaughter is 'stumped.'
Granddaughter states episodes are getting closer together and each time pt is losing 'pieces of cognition.'
2:[address] Neal, Neurology who agrees to skip the CT scan and get EEG. Plan discussed with pt and granddaughter.
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
3:45 p.m.
EEG done, Dr. Neal on his way to see pt.
Pt states no change in symptoms
4:[address] Neal at bedside speaking with pt and granddaughter
Requests admission for LP tomorrow.: Dx autoimmune encephalitis
Hospitalist notified of admission
*Critical Care Note
Total Time (30-74mins, 75-104mins- exclusive of procedures): Not Applicable
ED Attending Note
-
Portions of this chart may have been created with voice recognition software.� Occasional wrong word or��sound alike� substitutions may have occurred due to the inherent limitations of voice recognition software.
Discharge Plan
Departure
Patient Disposition: Admit
Date of Disposition: 07/19/24
Time of Disposition: 16:20
Admit to: Med/Surg
Presentation/result/management discussed w/ accepting MD/DO: Hospitalist
Condition: Fair
Discharge Problem:
Autoimmune encephalitis
Interventions
Interventions:
*Risk Screen - Suicide Last Done: 07/19/24 14:02
*General Assessment Last Done: 07/19/24 14:02
*Neglect/Abuse Screening Last Done: 07/19/24 14:02
*ED- Fall Risk Assessment Last Done: 07/19/24 21:22
*ED COVID-19 Vaccine History Last Done: 07/19/24 21:22
*Nursing Disposition Last Done: 07/19/24 21:23
ED- Pulmonary Assessment Last Done: 07/19/24 14:15
ED- Neurological Assessment Last Done: 07/19/24 14:15
ED- Cardiac Assessment Last Done: 07/19/24 14:15
ED Swallowing Screen Last Done: 07/19/24 14:15
Discharge Date and Time
Discharge Date/Time: 07/19/24 21:24
[2024-07-19 14:12] LABS: % Basophils 0.2 % (0-2); % Eosinophils 3.6 % (0-6); % Immature Granulocytes 0.5 % (0-0.5); % Lymphocytes 34.6 % (20.5-51.1); % Monocytes 9.3 % (1.7-9.3); % Neutrophils 51.8 % (42.2-75.2); Absolute Eosinophils 0.3 10^3/uL (0-0.7); Absolute Lymphocytes 2.8 10^3/uL (1.2-3.4); Absolute Monocytes 0.8 10^3/uL (0.1-0.6); Absolute Neutrophils 4.2 10^3/uL (1.4-6.5); Hematocrit 38.5 % (37.0-47.0); Hemoglobin 12.2 g/dL (12.0-16.0); Mean Corp Hgb Conc. 31.7 g/dL (33.0-37.0); Mean Corpuscular Hgb 26.4 pg (27.0-31.0); Mean Corpuscular Volume 83.3 fL (81.0-99.0); Mean Platelet Volume 10.1 fL (7.4-10.4); Nucleated Red Blood Cells % 0 %; Platelet Count 241 10^3/uL (130-400); Red Blood Cell Count 4.62 10^6/uL (4.20-5.40); Red Cell Dist. Width 16.5 % (11.5-14.5); White Blood Cell Count 8.2 10^3/uL (4.8-10.8)
[2024-07-19 14:34] LABS: ALT (SGPT) < 10 U/L (0-35); AST (SGOT) 20 U/L (14-36); Albumin 3.7 g/dl (3.5-5.0); Alkaline Phosphatase 81 U/L (38-126); Blood Urea Nitrogen 16 mg/dl (7-17); Calcium 8.5 mg/dl (8.4-10.2); Carbon Dioxide 28 mmol/L (22-30); Chloride 108 mmol/L (98-107); Glucose 160 mg/dl (70-99); Potassium 4.3 mmol/L (3.5-5.1); Sodium 140 mmol/L (135-145); Total Bilirubin 0.6 mg/dl (0.2-1.3); Total Protein 5.9 g/dl (6.3-8.2); eGFR 51.75
--- NOTE | 2024-07-19 16:24 | CON.NEURO ---
Addendum entered and electronically signed by Daniel Neal MD 07/19/24 16:52:
CSF for viral encephalitis PCR and autoimmune encephalitis antibodies
CT chest/abdomen/pelvis cancer screen
Original Note:
Neuro Assessment/Plan
Assessment
EEG today was normal
MRI 06/2024 mild microvascular changes
had brain MRI 2 weeks ago at [facility] showing old L cerebellar stroke
the described event and pattern more consistent with complex partial seizure as it's the same sequence each time; and not TIA as previously believed. they decline rx for concerns of sedation
with seizures increasing in frequency, rapidly progressing dementia, and psychosis concern for autoimmune encephalitis, admit for LP
DVT on Xarelto
Consultation
Order
Date of Consultation: 07/19/24
Requesting Provider: Larissa Dorsey
Reason for Consult: TIA
Subjective/Objective
Subjective Data
Date of Service: July 19, 2024
79 year old woman with paroxysmal event. perioral paresthesias --> slurred speech --> facial droop --> losing coordination --> tips over to the side --> aphasia --> post ictal confusion. has happened multiple times including while she was admitted
here in March; I thought it was hospital delirium at the time; other episodes diagnosed as TIA
events seem to be increasing in frequency. 4 times in the past month. past several months also with rapidly progressive dementia and psychosis; in January she was cognitively intact and last week was placed in memory care unit
on Eliquis for DVT/PE
Objective Data
Vital Signs
Temp Pulse Resp BP Pulse Ox
36.6 C 64 11 131/60 97
07/19/24 14:02 07/19/24 15:00 07/19/24 15:00 07/19/24 15:00 07/19/24 14:45
Lab Results
07/19/24 14:06
07/19/24 14:06
Sodium 140 mmol/L (135-145) 07/19/24 14:06
Potassium 4.3 mmol/L (3.5-5.1) 07/19/24 14:06
BUN 16 mg/dl (7-17) 07/19/24 14:06
Glucose 160 mg/dl (70-99) H 07/19/24 14:06
Calcium 8.5 mg/dl (8.4-10.2) 07/19/24 14:06
Patient Allergies
No Known Allergies Allergy (Verified 12/07/22 15:13)
Physical Exam
-
AAOx3, speech slow, soft, mildly dysarthric
VFF, EOMI, face symmetric
full strength b/l UE/LE
+bradykinesia, cogwheel rigidity, resting tremor
Medications
-
Home Medications
�Medication �Instructions �Recorded
rivaroxaban 20 mg tablet (Xarelto) 20 mg PO QPM DVT/PE 12/03/21
atorvastatin 20 mg tablet 20 mg PO QPM High Cholesterol 12/07/22
ipratropium 0.5 mg-albuterol 3 mg 3 ml inhalation R BID 01/28/23
(2.5 mg base)/3 mL nebulization Lung/Breathing Issues
soln
famotidine 20 mg tablet (Pepcid) 20 mg PO DAILY Gastrointestinal 04/07/23
Issue
budesonide 0.5 mg/2 mL suspension 0.5 mg inhalation R BID 02/27/24
for nebulization Lung/Breathing Issues
prednisone 5 mg tablet 5 mg PO DAILY inflammation 02/27/24
gabapentin 100 mg capsule 100 mg PO TID 30 days #90 caps 03/08/24
carbidopa 25 mg-levodopa 100 mg 2 tab PO TID Neurological Condition 06/18/24
tablet
risperidone 0.5 mg tablet 0.5 mg PO NOON Neurological 06/18/24
Condition
--- NOTE | 2024-07-19 17:06 | HPS.HSE ---
Family Physician
-
Family Physician: Kt Morales
Chief Complaint
-
Recurrent Neurologic Symptoms
History of Present Illness
Patient is a 79 y/o female past medical history hypertension, hyperlipidemia, diabetes mellitus, chronic kidney disease, COPD, Parkinson disease, DVT/PE and hyperthyroidism who presents with recurrent neurologic symptoms. Patient has been having
increasing episodes of neurologic symptoms. Patient develops perioral paresthesia which progress to asphasia. This is followed by her arms going limp and leaning to the side. After the episodes she has notable confusion. Granddaughter reports
about 4 episodes in the past month. Most recently she was seen at [place] on July 09.
Medical History
Past Medical History
Past Medical History: Reports Other
Additional Past Medical History:
TIA / CVA
Essential Hypertension
Hyperlipidemia
Diabetes Mellitus, Type II
CKD Stage III
COPD
Hyperthyroidism
Parkinson Disease
Dementia
DVT/PE
Cervical Radiculopathy
Past Surgical History: Reports Other
Additional Past Surgical History:
Cervical Spine Fusion
Section
Right Cataract
Appendectomy
Left Carotid Blockage
Social History
Tobacco: Former Smoker
Living: Other (Patient is now residing in a memory care unit)
Family History
Family History: Not pertinent
Allergies / Home Medications
Allergies reflects when Allergies were last updated in [email or web address].
Home Medications with original date entered in [email or web address]
Allergy/Medication List:
Allergies
Allergy/AdvReac Type Severity Reaction Status Date / Time
No Known Allergies Allergy Verified 12/07/22 15:13
Home Medications
rivaroxaban 20 mg tablet (Xarelto) 20 mg PO DAILY DVT/PE 12/03/21
atorvastatin 20 mg tablet 20 mg PO QPM High Cholesterol 12/07/22
ipratropium 0.5 mg-albuterol 3 mg (2.5 mg base)/3 mL nebulization soln 3 ml inhalation R BID Lung/Breathing Issues 01/28/23
famotidine 20 mg tablet (Pepcid) 20 mg PO DAILY Gastrointestinal Issue 04/07/23
budesonide 0.5 mg/2 mL suspension for nebulization 0.5 mg inhalation R BID Lung/Breathing Issues 02/27/24
prednisone 5 mg tablet 5 mg PO DAILY inflammation 02/27/24
gabapentin 100 mg capsule 100 mg PO TID 30 days #90 caps 03/08/24
carbidopa 25 mg-levodopa 100 mg tablet 2 tab PO TID@0800,1200,1700 Neurological Condition 06/18/24
risperidone 0.5 mg tablet 0.5 mg PO NOON Neurological Condition 06/18/24
aspirin 81 mg tablet,delayed release 81 mg PO DAILY 07/19/24
methimazole 5 mg tablet 5 mg PO MOWEFR 07/19/24
Review of Systems
-
A 12 point ROS was completed and negative except as noted: Yes
Constitutional: Denies Fever or Chills
Respiratory: Denies Cough or Trouble Breathing
Cardiac: Denies Chest Pain or Palpitations
Neurological: Reports See HPI
Physical Exam
Vital Signs
Vital Signs
Temp Pulse Resp BP Pulse Ox
97.8 F 64 16 150/136 97
07/19/24 14:02 07/19/24 16:15 07/19/24 16:15 07/19/24 16:00 07/19/24 16:30
Physical Exam
General: Comfortable and Conversant
HEENT: Anicteric and Moist mucous membranes
Respiratory: Clear and Non Labored Respirations
Cardiac: S1/S2 and Regular Rhythm
GI: Soft and Non Tender
Rectal: Deferred by Provider
Musculoskeletal: No Clubbing, No Cyanosis and No Edema
Skin: Warm and Dry
Neuro: Awake, Alert and No Motor Deficits
Psych: Calm
Laboratory Results
-
07/19/24 14:06
07/19/24 14:06
Laboratory Results
Total Bilirubin 0.6 mg/dl (0.2-1.3) 07/19/24 14:06
AST 20 U/L (14-36) 07/19/24 14:06
ALT < 10 U/L (0-35) 07/19/24 14:06
Alkaline Phosphatase 81 U/L (38-126) 07/19/24 14:06
Data Reviewed
-
Lab Data: Labs Reviewed by me
Old Records: Reviewed
Impression/Plan
-
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
-Appreciate Neurology Consult
-Hold Xarelto for LP tomorrow
-Check spinal fluid for paraneoplastic antibodies, meningitis
-Check TSH, vitamin b12, folate, T. pallidum antibody
Diabetes Mellitus, Type II
-HgbA1c 6.7 in June 2024
-Continue diabetic diet
CKD Stage III
-Creatinine at baseline
Hyperlipidemia
-Continue atorvastatin
COPD, no acute exacerbation
-Continue budesonide neb
-Continue prednisone
Hyperthyroidism
-Continue methimazole
Parkinson Disease
-Continue carbidopa-levodopa
Hallucinations
-Continue risperidone
Cervical Radiculopathy
-Continue gabapentin
Hx DVT/PE
-Resume Xarelto following LP
DVT Proph: SCDs until able to resume Xarelto
Code Status: DNR
--- NOTE | 2024-07-19 17:07 | W.PN.UPDATE ---
Update Note
Progress Note Update
This is an addendum to H&P written by Ayana Landry on 07/19/2024. Patient seen and examined independently with PA.
79-year-old female past medical history of paroxysmal atrial fibrillation on Xarelto, TIA, CVA, COPD, CKD 3A, hypertension, cervical colopathy, type 2 diabetes, hyperthyroidism, hyperlipidemia, Parkinson disease, dementia, history of pulmonary
embolism/DVT, vertigo, presenting with strokelike symptoms. Presenting with expressive aphasia, facial droop, numbness left side lip pain. Symptoms on left side currently but sometimes on the right side. Had 5 episodes this month. Cognition gets
progressively worse after each episode. Associated with wobbliness/going limp. No tonic-clonic activity but sometimes stares off. Patient had similar symptoms in February 2020 for had negative CTA of the head and neck. Had similar symptoms in
October with negative CT head. Seen at [facility] on 07/09 with MRI showing recent TIA as per granddaughter.
Neurology was consulted and recommended skipping CT head and performing EEG.
MRI from 06/18 shows no abnormality.
Unclear etiology of symptoms. Patient having recurrent strokelike symptoms without any evidence of stroke on imaging couple times. Consider other diagnoses such as partial seizures versus autoimmune encephalitis versus NMDA encephalitis.
Neurology recommending LP. Meningitis panel, cell counts, paraneoplastic antibodies, culture being sent. Hold Xarelto. IR consulted for LP. Check TSH, B12, syphilis screen, HIV. Check ESR CRP. Check CT chest abdomen pelvis to evaluate for
malignancy.
[2024-07-19 17:14] LABS: Erythrocyte Sed Rate 14 mm/hour (0-20)
--- NOTE | 2024-07-19 18:12 | EEG.RPT ---
Electroencephalogram Report
Recording
Date of EE07/19/24
Length of EEG recordin mins
Patient Status: Emergency Room
Recording Conditions: Awake
Hyperventilation Performed: No
Photic Stimulation Performed: Yes
Report
Clinical Background:�79 year old woman with complex partial seizures
Introduction: A routine bedside EEG was done using International 10-20 electrode placement protocol.
Background: In the most alert state, the PDR is 9-10 Hz in frequency with normal amplitude. There is spontaneous variability and reactivity.�
Sleep: No sleep is seen.�
Focal/epileptiform: There were no focal or epileptiform discharges. No clinical or electrographic seizures occurred during this recording.
Photic stimulation: resulted in normal driving response. There was no photo myogenic or photoparoxysmal response.�
Impression: Normal EEG
[2024-07-19 18:13] LABS: TSH Reflex To Free T4 0.24 uIU/ml (0.47-4.68)
[2024-07-19 18:48] LABS: Folate 8.4 ng/ml (2.76-20); Vitamin B12 341 pg/ml (239-931)
[2024-07-19 21:52] LABS: Glucose - Point of Care 113 mg/dl (70-99)
[2024-07-19] MEDS: SINEMET 25-100 2 TABLET PO (21:52)
[2024-07-19] MEDS: NEURONTIN 100 MG PO (21:52)
[2024-07-19] MEDS: TYLENOL 650 MG PO (21:53)
[2024-07-19] MEDS: LIPITOR 20 MG PO (21:53)
[2024-07-19] MEDS: DUONEB INH (21:57)
[2024-07-19] MEDS: PULMICORT INH (21:57)
[2024-07-20 06:00] VITALS: BMI 21.6
[2024-07-20 07:00] VITALS: BP 134/67
[2024-07-20] MEDS: PULMICORT INH ×2 (07:23→07:29)
[2024-07-20] MEDS: DUONEB INH ×2 (07:23→07:30)
[2024-07-20 07:57] LABS: Hematocrit 41.7 % (37.0-47.0); Hemoglobin 13.4 g/dL (12.0-16.0); Mean Corp Hgb Conc. 32.1 g/dL (33.0-37.0); Mean Corpuscular Hgb 26.7 pg (27.0-31.0); Mean Corpuscular Volume 83.1 fL (81.0-99.0); Mean Platelet Volume 9.8 fL (7.4-10.4); Platelet Count 267 10^3/uL (130-400); Red Blood Cell Count 5.02 10^6/uL (4.20-5.40); Red Cell Dist. Width 16.5 % (11.5-14.5); White Blood Cell Count 8.7 10^3/uL (4.8-10.8)
[2024-07-20 08:30] LABS: INR 1.27; PT 16.5 Sec (11.4-14.6)
[2024-07-20 08:42] LABS: Blood Urea Nitrogen 14 mg/dl (7-17); Calcium 8.6 mg/dl (8.4-10.2); Carbon Dioxide 25 mmol/L (22-30); Chloride 111 mmol/L (98-107); Estimated Creatinine Clearance 32 ml/min; Glucose 78 mg/dl (70-99); Potassium 4.7 mmol/L (3.5-5.1); Sodium 142 mmol/L (135-145); eGFR 51.75
[2024-07-20 09:08] LABS: Glucose - Point of Care 81 mg/dl (70-99)
[2024-07-20] MEDS: ASPIR LOW (ENTERIC COATED) 81 MG PO (10:11)
[2024-07-20] MEDS: PROTONIX 40 MG PO (10:11)
[2024-07-20] MEDS: VITAMIN B-12 1000 MCG PO (10:12)
[2024-07-20] MEDS: NEURONTIN 100 MG PO (10:12)
[2024-07-20] MEDS: DELTASONE 5 MG PO (10:12)
[2024-07-20] MEDS: SINEMET 25-100 2 TABLET PO ×3 (10:12→18:02)
--- NOTE | 2024-07-20 10:48 | CM ---
Initial assessment completed with patient's granddaughter/Berta HARRIS #[phone]
Pharmacy: [facility]
Granddaughter reported that [facility]; needs prompting; relies on checklists; at baseline, granddaughter reported that patient ambulated independently without a device; meals accessible at the
facility; granddaughter visit twice a day and takes her grandmother on an outing everyday
Granddaughter will provide transport home
Unless otherwise indicated, DC plan is to return to [facility] with [facility]
[2024-07-20] MEDS: RISPERDAL 0.5 MG PO (12:35)
[2024-07-20 13:18] LABS: Glucose - Point of Care 123 mg/dl (70-99)
--- NOTE | 2024-07-20 13:20 | W.PN.HOSP.TC ---
Today's Communication/Plan
-
LP
Assessment / Plan
Assessment / Plan
79-year-old female with perioral paresthesia, slurry speech, facial droop, coordination defects and aphasia. 5 episodes in the past 5 months. To the point where she is in the memory care unit now. Patient wanders at nighttime at home and family
did not feel safe to keep her home. She was recently seen at [facility] on July 09 ( daughter said there was 2 episodes of speech abnormality days apart at [facility]). She was admitted here in March as well as June .Family says she has periods
of Normalcy. And periods of confusion. She has been getting progressively worse in terms of hallucinations and memory issues -she talks to relative and make dinner for people who are not there- She comes out if it some times feels was real and
some times she feels was not real. Sometimes this is scary for her. Family feels that the quality of her life is suffering because of this.
EEG-07/19/2024-normal
CT scan chest abdomen and pelvis with IV contrast-linear densities within the posterior lower lungs likely dependent atelectasis. Mild coronary artery calcifications. 1 cm round lesion arising from the anterior lower pole of the kidney compatible
with cysts. Bony degenerative changes.
On examination patient is awake and alert. Feels tired
No energy to do anything per patient
No facial droop noted by me
Speech seems to be low tone but stable
Good strength upper extremity and lower extremity noted
Cardiovascular system S1-S2 appreciated
Abdomen soft and nontender
Chest clear to auscultation
# Recurrent Neuro Symptoms previously diagnosed as delirium and TIA
Holding Xarelto for LP
Check spinal fluid studies including viral encephalitis, autoimmune encephalitis antibodies
EEG-no seizures
CT scan of the chest abdomen pelvis -negative
Patient does have a history of COVID 19 infection end of 02/28/2024 through 03/08/2024-at that time was treated as delirium-patient was started on gabapentin, Sinemet and quetiapine
Patient was readmitted 06/18/2024 with right-sided weakness-was felt to be TIA at that time and discharged on 06/21/2024-she was already on risperidone during that admission ( Risperidone was started by )
I will take her off of gabapentin for now.
Wait for lumbar puncture and fluid studies
Will discuss with neurology if she needs prolonged EEG could this be seizures? Is it worth a trial of antiepileptics?
Neurology evaluation appreciated
# Diabetes-hemoglobin A1c 6.7 06/19/24
Accu-Cheks and sliding scale coverage
# Hyperlipidemia-continue atorvastatin
# CKD stage III-watch for LAURY
# COPD-continue budesonide and prednisone
# Hyperthyroidism-continue Methimazole
# Parkinson disease-continue Sinemet (under care of Anselmo Alcala MD at [facility] in [place].). She had tremors for years and it got better with Sinemet started in Mar 2024.
# Hallucinations-continue Risperidone
# Dementia-unknown type
# History of left cerebellar stroke per records ( AT [facility]?) MRI of the brain on 06/18/2024-negative
# Cervical radiculopathy-Hold off on gabapentin for now.
# Low normal vitamin B12-add p.o.
# Abnormal TSH-Normal T4-repeat as outpatient
# Ex-smoker
# History of DVT and PE-resume Xarelto following LP
# DVT prophylaxis-SCDs and resume Xarelto as above
# DNR
Discussed with nursing
Discussed with patient granddaughter on the phone in detail.
request Old records
Time spent over 50 min
Part of this note was created using voice recognition system. Occasional wrong word or��sound alike� substitutions may have inadvertently occurred due to the inherent limitations of voice recognition software. If noted kindly bring it to my
attention for correction.
Anticipated Discharge: > 48 hours
Subjective/Interval History
-
Date of Service: July 20, 2024
Objective Data
-
Labs:
Laboratory Results
07/20/24
07:42
WBC 8.7
Hgb 13.4
Hct 41.7
Plt Count 267
PT 16.5 H
INR 1.27
Sodium 142
Potassium 4.7
Chloride 111 H
Carbon Dioxide 25
BUN 14
Creatinine 1.1 H
Glucose 78
Calcium 8.6
Vital Signs:
Vital Signs
Temp Pulse Resp BP Pulse Ox
97.9 F 67 16 134/67 97
07/20/24 07:00 07/20/24 07:30 07/20/24 07:30 07/20/24 07:00 07/20/24 07:30
I&O
07/19/24 07/20/24 07/21/24
06:59 06:59 06:59
Intake Total 240 / 240 240 / 240
Balance 240 / 240 240 / 240
[2024-07-20 13:34] LABS: Syphilis/T. pallidum Ab Reflex Negative (Negative)
[2024-07-20 15:00] VITALS: BP 145/64
[2024-07-20 15:00] LABS: HIV Combo Negative (Negative)
--- NOTE | 2024-07-20 15:40 | PTCARENOTE ---
Spoke to Dr. Roman regarding (+)C. diff antigen, who reports he is being treated w/ oral Vancomycin, and ideally should be in private room. Information relayed to Princess in infection prevention, who agrees since patient is actively having
diarrhea, requires isolation. Nursing supervisor of operations aware, will move to room 1146.
--- NOTE | 2024-07-20 16:25 | PTCARENOTE ---
RSOENDO RN-reached out to Dr. Neal regarding his request for lumbar puncture. Per Dr. Neal, Lumbar puncture is okay to be done tomorrow.
[2024-07-20] MEDS: LIPITOR 20 MG PO (18:02)
[2024-07-20 18:23] LABS: Glucose - Point of Care 241 mg/dl (70-99)
[2024-07-20] MEDS: DUONEB 3 ML INH (19:13)
[2024-07-20] MEDS: PULMICORT 0.5 MG INH (19:13)
[2024-07-20 21:43] LABS: Glucose - Point of Care 89 mg/dl (70-99)
[2024-07-20 23:15] VITALS: BP 129/58
[2024-07-20 23:34] VITALS: BP 129/58
[2024-07-21] VITALS (9 sets, daily range): BP systolic 66–132; BP diastolic 48–70; BMI 21.3
[2024-07-21] MEDS: DUONEB 3 ML INH ×2 (07:30→19:49)
[2024-07-21] MEDS: PULMICORT 0.5 MG INH ×2 (07:30→19:49)
[2024-07-21 07:34] LABS: Glucose - Point of Care 110 mg/dl (70-99)
[2024-07-21 08:42] LABS: Hematocrit 42.7 % (37.0-47.0); Hemoglobin 13.4 g/dL (12.0-16.0); Mean Corp Hgb Conc. 31.4 g/dL (33.0-37.0); Mean Corpuscular Hgb 25.9 pg (27.0-31.0); Mean Corpuscular Volume 82.6 fL (81.0-99.0); Mean Platelet Volume 9.6 fL (7.4-10.4); Platelet Count 255 10^3/uL (130-400); Red Blood Cell Count 5.17 10^6/uL (4.20-5.40); Red Cell Dist. Width 16.5 % (11.5-14.5); White Blood Cell Count 8.6 10^3/uL (4.8-10.8)
[2024-07-21 09:27] LABS: Blood Urea Nitrogen 13 mg/dl (7-17); Carbon Dioxide 27 mmol/L (22-30); Chloride 110 mmol/L (98-107); Estimated Creatinine Clearance 32 ml/min; Glucose 86 mg/dl (70-99); Potassium 4.3 mmol/L (3.5-5.1); Sodium 142 mmol/L (135-145); eGFR 51.75
[2024-07-21] MEDS: PROTONIX 40 MG PO (09:27)
[2024-07-21] MEDS: VITAMIN B-12 1000 MCG PO (09:27)
[2024-07-21] MEDS: DELTASONE 5 MG PO (09:27)
[2024-07-21] MEDS: ASPIR LOW (ENTERIC COATED) 81 MG PO (09:27)
[2024-07-21] MEDS: SINEMET 25-100 2 TABLET PO ×3 (09:27→16:45)
[2024-07-21] MEDS: TAPAZOLE 5 MG PO (09:29)
--- NOTE | 2024-07-21 10:27 | CM ---
CM reviewed, reviewed with Nurse, patient seen bedside with granddaughter. Patient from [facility], will require PT evals prior to discharge. Granddaughter requesting PT,OT, and Speech through [facility]. Patient for lumbar puncture today. CM
will continue to follow for all discharge planning needs.
Plan; return to [facility] with [facility], OT, Speech, pending PT evals.
--- NOTE | 2024-07-21 10:32 | W.PN.HOSP.TC ---
Today's Communication/Plan
-
LP
Assessment / Plan
Assessment / Plan
79-year-old female with perioral paresthesia, slurry speech, facial droop, coordination defects and aphasia. 5 episodes in the past 5 months. To the point where she is in the memory care unit now. Patient wanders at nighttime at home and family
did not feel safe to keep her home. She was recently seen at [facility] on July 09 ( daughter said there was 2 episodes of speech abnormality days apart at [facility]). She was admitted here in March as well as June .Family says she has periods
of Normalcy. And periods of confusion. She has been getting progressively worse in terms of hallucinations and memory issues -she talks to relative and make dinner for people who are not there- She comes out if it some times feels was real and
some times she feels was not real. Sometimes this is scary for her. Family feels that the quality of her life is suffering because of this.
EEG-07/19/2024-normal
CT scan chest abdomen and pelvis with IV contrast-linear densities within the posterior lower lungs likely dependent atelectasis. Mild coronary artery calcifications. 1 cm round lesion arising from the anterior lower pole of the kidney compatible
with cysts. Bony degenerative changes.
Patient had an episode of perioral numbness and shaking of her left arm this morning. She is able to talk and communicate but feels that she does not clench her fist on the left arm is shaking.
On examination patient is awake and alert. Feels tired
No energy to do anything per patient
No facial droop noted
Patient able to speak and communicate
Good strength upper extremity and lower extremity noted, intention tremors/shakes on the left arm
Cardiovascular system S1-S2 appreciated
Abdomen soft and nontender
Chest clear to auscultation
# Recurrent Neuro Symptoms previously diagnosed as delirium and TIA
Holding Xarelto for LP
Check spinal fluid studies including viral encephalitis, autoimmune encephalitis antibodies
EEG-no seizures
CT scan of the chest abdomen pelvis -negative
Patient does have a history of COVID 19 infection end of 02/28/2024 through 03/08/2024-at that time was treated as delirium-patient was started on gabapentin, Sinemet and quetiapine
Patient was readmitted 06/18/2024 with right-sided weakness-was felt to be TIA at that time and discharged on 06/21/2024-she was already on risperidone during that admission ( Risperidone was started by )
I will take her off of gabapentin for now.
Patient had another episode this morning with the perioral numbness and shakes of the left arm
Wait for lumbar puncture and fluid studies
Will discuss with neurology if she needs prolonged EEG could this be seizures? Is it worth a trial of antiepileptics?
Neurology evaluation appreciated
# Diabetes-hemoglobin A1c 6.7 06/19/24
Accu-Cheks and sliding scale coverage
# Hyperlipidemia-continue atorvastatin
# CKD stage III-watch for LAURY
# COPD-continue budesonide and prednisone
# Hyperthyroidism-continue Methimazole
# Parkinson disease-continue Sinemet (under care of Anselmo Alcala MD at [facility] in [place].). She had tremors for years and it got better with Sinemet started in Mar 2024.
# Hallucinations-continue Risperidone
# Dementia-unknown type
# History of left cerebellar stroke per records ( AT [facility]?) MRI of the brain on 06/18/2024-negative
# Cervical radiculopathy-Hold off on gabapentin for now.
# Low normal vitamin R31-hptym p.o.
# Abnormal TSH-Normal T4-repeat as outpatient
# Ex-smoker
# History of DVT and PE-Resume Xarelto following LP
# DVT prophylaxis-SCDs and resume Xarelto as above
# DNR
Discussed with nursing
Discussed with patient granddaughter on the phone in detail on 07/20/24.
Part of this note was created using voice recognition system. Occasional wrong word or��sound alike� substitutions may have inadvertently occurred due to the inherent limitations of voice recognition software. If noted kindly bring it to my
attention for correction.
Anticipated Discharge: 24 - 48 hours
Subjective/Interval History
-
Date of Service: July 21, 2024
Objective Data
-
Labs:
Laboratory Results
07/21/24
08:32
WBC 8.6
Hgb 13.4
Hct 42.7
Plt Count 255
Sodium 142
Potassium 4.3
Chloride 110 H
Carbon Dioxide 27
BUN 13
Creatinine 1.1 H
Glucose 86
Calcium 9.0
Vital Signs:
Vital Signs
Temp Pulse Resp BP Pulse Ox
98.0 F 88 14 125/64 97
07/21/24 07:25 07/21/24 07:32 07/21/24 07:32 07/21/24 07:25 07/21/24 07:32
I&O
07/20/24 07/21/24 07/22/24
06:59 06:59 06:59
Intake Total 240 / 240 240 / 240 520 / 520
Balance 240 / 240 240 / 240 520 / 520
[2024-07-21 11:20] LABS: Glucose - Point of Care 121 mg/dl (70-99)
--- NOTE | 2024-07-21 12:21 | PTCARENOTE ---
pt aaox2 forgets month. pt granddaughter poa at bedside. has called to show nurse change in pt condition symptom was tingling on left side of face then numbness. neurologist made aware down to see pt. nihss 3
[2024-07-21] MEDS: RISPERDAL 0.5 MG PO (12:41)
[2024-07-21] MEDS: KEPPRA 2000 MG IV (14:14)
--- NOTE | 2024-07-21 14:22 | PTCARENOTE ---
pt having episodes of confusion followed by grogginess. pt granddaughter at bedside very concerned. reviewed doctors notes with her and explained that they feel she may be having seizures. granddaughter agreed to give pt seizures meds if the
doctors felt it was necessary. notified dr BILLS and dr Hernandez of POA decision and pt condition. both agreed to give Keppra. med given as ordered. pt now taken to IR for LP
--- NOTE | 2024-07-21 14:52 | W.PN.UPDATE ---
Update Note
Progress Note Update
pt had more perioral numbness, unresponsiveness and hallucinations. left arm still shaking.
GD at bed side
Agree that a trial of Keppra may be worth it at this point.
GD agreable.
[2024-07-21 16:21] LABS: CSF Clarity Clear; CSF Color Colorless; CSF Tube # 1
[2024-07-21 16:22] LABS: Red Cell Count/CSF 99 mm^3; White Cell Count/CSF 1 mm^3 (0-5)
[2024-07-21 16:23] LABS: Spinal Fluid Glucose 71 mg/dl (40-70); Spinal Fluid Protein 74 mg/dl (12-60)
[2024-07-21 16:29] LABS: CSF Color Colorless; CSF Tube # 4; CSF Tube # Clarity Clear; Red Cell Count/CSF 18 mm^3; White Blood Cell Count/CSF 0 mm^3 (0-5)
[2024-07-21] MEDS: LIPITOR 20 MG PO (16:45)
[2024-07-21 17:21] LABS: Glucose - Point of Care 155 mg/dl (70-99)
[2024-07-21] MEDS: GAMMAGARD 200 IV (17:29)
[2024-07-21] MEDS: BENADRYL 25 MG PO (17:29)
--- NOTE | 2024-07-21 17:30 | W.PN.NEURO.1 ---
Today's Communication / Plan
-
Start IVIG 20 g x5 days
pre medicate tylenol/benadryl
pending viral encephalitis PCR and paraneoplastic autoantibodies.
Neuro Assessment/Plan
Assessment
EEG today was normal
MRI 06/2024 mild microvascular changes
had brain MRI 2 weeks ago at [facility] showing old L cerebellar stroke
the described event and pattern more consistent with complex partial seizure as it's the same sequence each time; and not TIA as previously believed. they decline rx for concerns of sedation
with seizures increasing in frequency, rapidly progressing dementia, and psychosis concern for autoimmune encephalitis
CSF WBC 0, RBC 18, glucose 71, protein 74
consistent with autoimmune encephalitis
Start IVIG 20 g x5 days
pre medicate tylenol/benadryl
pending viral encephalitis PCR and paraneoplastic autoantibodies.
DVT on Xarelto
Subjective/Objective
Subjective Data
Date of Service: July 21, 2024
this morning had another seizure. GD at bedside, agreed to try Keppra
Objective Data
Vital Signs
Temp Pulse Resp BP Pulse Ox
36.7 C 71 18 132/70 97
07/21/24 14:41 07/21/24 15:40 07/21/24 15:40 07/21/24 15:40 07/21/24 15:40
Lab Results
07/21/24 08:32
07/21/24 08:32
PT 16.5 Sec (11.4-14.6) H 07/20/24 07:42
INR 1.27 07/20/24 07:42
Sodium 142 mmol/L (135-145) 07/21/24 08:32
Potassium 4.3 mmol/L (3.5-5.1) 07/21/24 08:32
BUN 13 mg/dl (7-17) 07/21/24 08:32
Glucose 86 mg/dl (70-99) 07/21/24 08:32
Calcium 9.0 mg/dl (8.4-10.2) 07/21/24 08:32
Vitamin B12 341 pg/ml (239-931) 07/19/24 17:13
Patient Allergies
No Known Allergies Allergy (Verified 12/07/22 15:13)
Physical Exam
-
AAOx3, speech slow, soft, mildly dysarthric
VFF, EOMI, face symmetric
full strength b/l UE/LE
+bradykinesia, cogwheel rigidity, resting tremor
[2024-07-21] MEDS: TYLENOL 650 MG PO (17:41)
[2024-07-21] MEDS: KEPPRA 500 MG PO (20:27)
[2024-07-21 21:30] LABS: Glucose - Point of Care 140 mg/dl (70-99)
[2024-07-22] VITALS (17 sets, daily range): BP systolic 88–144; BP diastolic 53–86; BMI 20.6
--- NOTE | 2024-07-22 05:15 | PTCARENOTE ---
Upon rounding, patient in suspected post ictal state, drowsy but arouses to sternal rubbing and found to be incontinent of large BM in bed. Vital signs as documented. DELIVERY DEPARTMENT SUPERVISOR made aware, IV Ofirmev ordered and administered - see MAR, daily labs ordered
and hygiene care provided. Placed on 2L NC for at of 86% on RA, recovered to 95%. Call story within reach, bed alarm in place, care ongoing.
[2024-07-22] MEDS: OFIRMEV 100 IV ×2 (06:19→15:24)
[2024-07-22] MEDS: PULMICORT 0.5 MG INH ×2 (07:16→19:25)
[2024-07-22] MEDS: DUONEB 3 ML INH ×2 (07:16→19:25)
[2024-07-22 07:23] LABS: Hematocrit 40.2 % (37.0-47.0); Hemoglobin 12.9 g/dL (12.0-16.0); Mean Corp Hgb Conc. 32.1 g/dL (33.0-37.0); Mean Corpuscular Hgb 26.1 pg (27.0-31.0); Mean Corpuscular Volume 81.4 fL (81.0-99.0); Mean Platelet Volume 10.1 fL (7.4-10.4); Platelet Count 228 10^3/uL (130-400); Red Blood Cell Count 4.94 10^6/uL (4.20-5.40); Red Cell Dist. Width 16.5 % (11.5-14.5); White Blood Cell Count 13.4 10^3/uL (4.8-10.8)
[2024-07-22 07:48] LABS: Blood Urea Nitrogen 18 mg/dl (7-17); Calcium 8.6 mg/dl (8.4-10.2); Carbon Dioxide 21 mmol/L (22-30); Chloride 110 mmol/L (98-107); Estimated Creatinine Clearance 27 ml/min; Glucose 136 mg/dl (70-99); Potassium 3.8 mmol/L (3.5-5.1); Sodium 137 mmol/L (135-145); eGFR 42.35
--- NOTE | 2024-07-22 09:11 | W.PN.HOSP.TC ---
Today's Communication/Plan
-
Change Keppra to IV
Restart Gabapentin
CXR
IVF
Watch BP
Assessment / Plan
Assessment / Plan
79-year-old female with perioral paresthesia, slurry speech, facial droop, coordination defects and aphasia. 5 episodes in the past 5 months. To the point where she is in the memory care unit now. Patient wanders at nighttime at home and family
did not feel safe to keep her home. She was recently seen at [facility] on July 09 ( daughter said there was 2 episodes of speech abnormality days apart at [facility] She was admitted here in March as well as June .Family says she has periods
of Normalcy. And periods of confusion. She has been getting progressively worse in terms of hallucinations and memory issues -she talks to relative and make dinner for people who are not there- She comes out if it some times feels was real and
some times she feels was not real. Sometimes this is scary for her. Family feels that the quality of her life is suffering because of this.
EEG-07/19/2024-normal
CT scan chest abdomen and pelvis with IV contrast-linear densities within the posterior lower lungs likely dependent atelectasis. Mild coronary artery calcifications. 1 cm round lesion arising from the anterior lower pole of the kidney compatible
with cysts. Bony degenerative changes.
Called to see the patient as she has. Soft unresponsiveness. She is hard to arouse and unresponsive
On examination patient is unresponsive.
Painful stimulus opens her eyes but confused
No facial droop noted
No tremors noted
Cardiovascular system S1-S2 appreciated
Abdomen soft and nontender
Chest clear to auscultation
# Recurrent Neuro Symptoms previously diagnosed as delirium and TIA
Xarelto restarted
EEG-no seizures
CT scan of the chest abdomen pelvis -negative
Patient does have a history of COVID 19 infection end of 02/28/2024 through 03/08/2024-at that time was treated as delirium-patient was started on gabapentin, Sinemet and quetiapine
Patient was readmitted 06/18/2024 with right-sided weakness-was felt to be TIA at that time and discharged on 06/21/2024-she was already on risperidone during that admission ( Risperidone was started by )
Patient had another episode morning of 07/21/2024 with the perioral numbness and shakes of the left arm
1 more episode on 07/22/2024 where she appeared to be postictal and unresponsive
Started on Keppra 500 twice daily after a load of 2 g on 07/21/2024
Lumbar puncture 07/21/2024-showed elevated protein-IVIG started on 07/21/2024
Meningitis panel negative
HIV and syphilis serologies negative
Paraneoplastic antibodies, Lyme pending
# Hypotension-am 07/22/24-unclear reason.
Check chest x-ray to rule out aspiration pneumonia
Check EKG
Bolus IV fluids with a drip
If blood pressure is not coming up we will give stress dose of steroids
# Diabetes-hemoglobin A1c 6.7 06/19/24
Accu-Cheks and sliding scale coverage
# Hyperlipidemia-continue atorvastatin
# SANDER CKD stage III-bolus of IV fluids with drip
# COPD-continue budesonide and prednisone
# Hyperthyroidism-continue Methimazole
# Parkinson disease-continue Sinemet (under care of Anselmo Alcala MD at [facility] in [place].). She had tremors for years and it got better with Sinemet started in Mar 2024.
# Hallucinations-continue Risperidone
# Dementia-unknown type
# History of left cerebellar stroke per records ( AT [facility]?) MRI of the brain on 06/18/2024-negative
# Cervical radiculopathy-I will restart gabapentin as this did not help relieve symptoms
# Low normal vitamin G08-pyuvu p.o.
# Abnormal TSH-Normal T4-repeat as outpatient
# Ex-smoker
# History of DVT and PE-Resume Xarelto
# DVT prophylaxis-SCDs and resume Xarelto
# DNR
Discussed with nursing
Granddaughter updated.
D/W Neuro
Time over 50 min
Part of this note was created using voice recognition system. Occasional wrong word or��sound alike� substitutions may have inadvertently occurred due to the inherent limitations of voice recognition software. If noted kindly bring it to my
attention for correction.
Anticipated Discharge: > 48 hours
Subjective/Interval History
-
Date of Service: July 22, 2024
Objective Data
-
Labs:
Laboratory Results
07/22/24
07:02
WBC 13.4 H
Hgb 12.9
Hct 40.2
Plt Count 228
Sodium 137
Potassium 3.8
Chloride 110 H
Carbon Dioxide 21 L
BUN 18 H
Creatinine 1.3 H
Glucose 136 H
Calcium 8.6
Vital Signs:
Vital Signs
Temp Pulse Resp BP Pulse Ox
99.2 F 156 18 88/53 95
07/22/24 08:30 07/22/24 08:32 07/22/24 08:30 07/22/24 08:32 07/22/24 08:30
I&O
07/21/24 07/22/24 07/23/24
06:59 06:59 06:59
Intake Total 240 / 240 520 / 520
Balance 240 / 240 520 / 520
[2024-07-22] MEDS: NSS 500 IV (09:24)
[2024-07-22] MEDS: KEPPRA 500 MG IV ×2 (09:24→21:00)
[2024-07-22] MEDS: VITAMIN B-12 PO (10:42)
[2024-07-22] MEDS: PROTONIX PO (10:42)
[2024-07-22 10:55] LABS: Glucose - Point of Care 122 mg/dl (70-99)
[2024-07-22] MEDS: NSS 1000 IV (11:18)
--- NOTE | 2024-07-22 11:29 | PTCARENOTE ---
late entry: BP 88/53, HR 156 during routine vital signs check. Patient only moaning and fluttering eyes to tactile and painful stimuli. Dr. Hernandez and Dr. Neal made aware of events that occurred during previous shift. Dr. Hernandez came to assess at
bedside, ordered fluid bolus, and PO Keppra changed to IV. Order for xray noted, patient went and returned without incident. Patient now arousable to verbal stimuli, oriented to self. Able to speak in complete sentences but remains drowsy. BP
improved, 108/60.
--- NOTE | 2024-07-22 11:37 | PTCARENOTE ---
Spoke w/ Osiris in Infection Prevention. Patient is okay to come off droplet precautions, but will stay on modified contact precautions d/t positive MRSA screen.
--- NOTE | 2024-07-22 11:39 | PTCARENOTE ---
Per Dr. Neal, okay to discontinue NIHSS.
[2024-07-22] MEDS: KEPPRA PO (13:06)
[2024-07-22] MEDS: ASPIR LOW (ENTERIC COATED) PO (13:16)
[2024-07-22] MEDS: XARELTO PO (13:16)
[2024-07-22] MEDS: SINEMET 25-100 PO ×3 (13:16→17:20)
[2024-07-22] MEDS: DELTASONE PO (13:16)
[2024-07-22] MEDS: RISPERDAL PO (14:31)
--- NOTE | 2024-07-22 15:11 | W.PN.UPDATE ---
Update Note
Progress Note Update
Came back to see the patient as she was complaining of right eye pain which started 30 minutes ago.
She seems to be better in terms of her mentation able to say her name and that she is at [facility]
Able to identify family at bedside by name
She was able to read with the right eye, pupils are equal and reactive
She does have the arm tremors
Prefers to keep right eye closed and wants to lay down because she feels comfortable
Blood pressure has improved
Chest x-ray unremarkable
Urinalysis ordered
Leukocytosis could be secondary to IVIG as well.
Hold noontime risperidone.
Continue IV fluids
Much creatinine with IVIG
Patient does not have any history of glaucoma
Patient has a history of migraines-trial of 1 dose of Compazine
I have sent a message for Dr. Hurt her OP Ophthal
Neuro will give a nerve block to occipital nerve as this is reproducible.
Discussed with family at bedside
Discussed with neurology
Discussed with nursing at bedside.
25 min
--- NOTE | 2024-07-22 15:19 | CM ---
CM reviewed chart, patient off floor. Phone call to [facility] to obtain PLOF with patients nurse, left voicemail requesting return call. Patient receiving IV Keppra. CM will continue to follow for all discharge planning needs.
Plan; return to [facility] with [facility], will need PT evals prior to d.c, when medically stable
[2024-07-22] MEDS: COMPAZINE 5 MG IV (15:53)
[2024-07-22] MEDS: KENALOG-40 40 MG IM (16:06)
[2024-07-22] MEDS: SENSORCAINE 0.5% SINGLE DOSE 30 ML INJ (16:06)
--- NOTE | 2024-07-22 16:22 | W.PN.NEURO.1 ---
Today's Communication / Plan
-
IVIG day 2
right eye pain relieved by occipital nerve block
Neuro Assessment/Plan
Assessment
EEG today was normal
MRI 06/2024 mild microvascular changes
had brain MRI 2 weeks ago at [facility] showing old L cerebellar stroke
the described event and pattern more consistent with complex partial seizure as it's the same sequence each time; and not TIA as previously believed. they decline rx for concerns of sedation
with seizures increasing in frequency, rapidly progressing dementia, and psychosis concern for autoimmune encephalitis
CSF WBC 0, RBC 18, glucose 71, protein 74
consistent with autoimmune encephalitis
IVIG 20 g x5 days
pre medicate tylenol/benadryl
pending viral encephalitis PCR and paraneoplastic autoantibodies.
DVT on Xarelto
Subjective/Objective
Subjective Data
Date of Service: July 22, 2024
last evening she tolerated the first dose of IVIG pretty well, afterwards was joking around with her family and interactive
this morning ~6am she was lethargic, suspected post ictal, hypotensive 88/53, tachycardic, responded to IV fluids
seen this afternoon she remains lethargic, answering appropriately, oriented, c/o right eye pain
Objective Data
Vital Signs
Temp Pulse Resp BP Pulse Ox
37.5 C 88 16 121/63 93
07/22/24 15:45 07/22/24 15:45 07/22/24 15:45 07/22/24 15:45 07/22/24 15:45
Lab Results
07/22/24 07:02
07/22/24 07:02
PT 16.5 Sec (11.4-14.6) H 07/20/24 07:42
INR 1.27 07/20/24 07:42
Sodium 137 mmol/L (135-145) 07/22/24 07:02
Potassium 3.8 mmol/L (3.5-5.1) 07/22/24 07:02
BUN 18 mg/dl (7-17) H 07/22/24 07:02
Glucose 136 mg/dl (70-99) H 07/22/24 07:02
Calcium 8.6 mg/dl (8.4-10.2) 07/22/24 07:02
Vitamin B12 341 pg/ml (239-931) 07/19/24 17:13
Patient Allergies
No Known Allergies Allergy (Verified 12/07/22 15:13)
Physical Exam
-
AAOx3, speech slow, soft, mildly dysarthric
VFF, EOMI, face symmetric
full strength b/l UE/LE
+bradykinesia, cogwheel rigidity, resting tremor
right occipital neuralgia, when palpated worsens the eye pain.
--- NOTE | 2024-07-22 16:28 | W.PN.UPDATE ---
Update Note
Progress Note Update
procedure note
80280 right occipital nerve block
diagnosis
M54.81 occipital neuralgia
in a 10 cc syringe, 22g x 1.5 in needle drawn 5 cc of bupivacaine 0.5% and 40 mg Kenalog-40
right occipital nerve at splenius capitis injected entire contents of syringe
[2024-07-22] MEDS: NEURONTIN PO (16:33)
--- NOTE | 2024-07-22 16:45 | PTCARENOTE ---
Received patient at 1645 from [facility]. Patient sleeping, responds to tactile stimuli. patient will open eye and appear startled,but no verbal conversation. Family at bedside. patient appears to be sleeping comfortably and snoring. Patient
repositioned, bed alarm maintained.
[2024-07-22] MEDS: LIPITOR PO (17:20)
[2024-07-22] MEDS: GAMMAGARD 200 IV (17:20)
--- NOTE | 2024-07-22 17:20 | PTCARENOTE ---
Gammagard infusion started at 1720.
--- NOTE | 2024-07-22 20:47 | PTCARENOTE ---
IVIG infusion complete. VSS> Afebrile, HR 85, RR 16, BP 110/63 pox 99% 2LNC. Granddaughter at bedside.
--- NOTE | 2024-07-22 20:52 | PTCARENOTE ---
IVIG bottle completed. VSS Afebrile, HR 85, RR 16, BP 110/63 pox 99% 2LNC
[2024-07-22] MEDS: NEURONTIN 100 MG PO (21:21)
[2024-07-22 21:29] LABS: Glucose - Point of Care 103 mg/dl (70-99)
[2024-07-23] VITALS (8 sets, daily range): BP systolic 120–139; BP diastolic 53–73; PULSE 87; O2SAT 92; BMI 21.6
[2024-07-23 06:40] LABS: Hemoglobin 12.5 g/dL (12.0-16.0); Mean Corp Hgb Conc. 31.3 g/dL (33.0-37.0); Mean Corpuscular Volume 83.2 fL (81.0-99.0); Mean Platelet Volume 10.1 fL (7.4-10.4); Platelet Count 173 10^3/uL (130-400); Red Blood Cell Count 4.81 10^6/uL (4.20-5.40); Red Cell Dist. Width 16.7 % (11.5-14.5); White Blood Cell Count 9.1 10^3/uL (4.8-10.8)
[2024-07-23 06:44] LABS: Blood Urea Nitrogen 23 mg/dl (7-17); Calcium 7.8 mg/dl (8.4-10.2); Carbon Dioxide 24 mmol/L (22-30); Chloride 113 mmol/L (98-107); Estimated Creatinine Clearance 30 ml/min; Glucose 84 mg/dl (70-99); Potassium 4.6 mmol/L (3.5-5.1); Sodium 141 mmol/L (135-145); eGFR 46.62
[2024-07-23] MEDS: DUONEB 3 ML INH ×2 (07:04→18:29)
[2024-07-23] MEDS: PULMICORT 0.5 MG INH ×2 (07:04→18:29)
[2024-07-23 08:06] LABS: Glucose - Point of Care 138 mg/dl (70-99)
[2024-07-23] MEDS: NSS 1000 IV ×2 (08:22→17:44)
[2024-07-23] MEDS: NSS IV (08:22)
[2024-07-23] MEDS: KEPPRA 500 MG IV ×2 (08:24→21:10)
[2024-07-23] MEDS: XARELTO 20 MG PO (09:42)
[2024-07-23] MEDS: NEURONTIN 100 MG PO ×3 (09:43→21:11)
[2024-07-23] MEDS: VITAMIN B-12 1000 MCG PO (09:43)
[2024-07-23] MEDS: SINEMET 25-100 2 TABLET PO ×3 (09:43→17:45)
[2024-07-23] MEDS: PROTONIX 40 MG PO (09:43)
[2024-07-23] MEDS: ASPIR LOW (ENTERIC COATED) 81 MG PO (09:43)
[2024-07-23] MEDS: DELTASONE 5 MG PO (09:43)
[2024-07-23] MEDS: TAPAZOLE 5 MG PO (09:46)
[2024-07-23 11:55] LABS: Glucose - Point of Care 93 mg/dl (70-99)
[2024-07-23] MEDS: FLORASTOR 250 MG PO ×2 (13:33→21:11)
[2024-07-23] MEDS: RISPERDAL 0.5 MG PO (13:34)
--- NOTE | 2024-07-23 14:14 | W.PN.HOSP.TC ---
Today's Communication/Plan
-
IVIG
Check C diff
Assessment / Plan
Assessment / Plan
79-year-old female with perioral paresthesia, slurry speech, facial droop, coordination defects and aphasia. 5 episodes in the past 5 months. To the point where she is in the memory care unit now. Patient wanders at nighttime at home and family
did not feel safe to keep her home. She was recently seen at [facility] on July 09 ( daughter said there was 2 episodes of speech abnormality days apart at [facility]). She was admitted here in March as well as June .Family says she has periods
of Normalcy. And periods of confusion. She has been getting progressively worse in terms of hallucinations and memory issues -she talks to relative and make dinner for people who are not there- She comes out if it some times feels was real and
some times she feels was not real. Sometimes this is scary for her. Family feels that the quality of her life is suffering because of this.
EEG-07/19/2024-normal
CT scan chest abdomen and pelvis with IV contrast-linear densities within the posterior lower lungs likely dependent atelectasis. Mild coronary artery calcifications. 1 cm round lesion arising from the anterior lower pole of the kidney compatible
with cysts. Bony degenerative changes.
Granddaughter at bedside feels that patient is still having hallucinations but able to comprehend things have a conversation with her. Patient also had several bowel movements which were loose and watery.
She is still complaining of the right eye pain which started soon after the injection yesterday
Cardiovascular system S1-S2 appreciated
Abdomen soft and nontender
Chest clear to auscultation
Pupils are equal round reactive
Good motor strength bilateral upper extremities and lower extremities
No facial droop
Patient is able to read with the right eye
# Recurrent Neuro Symptoms previously diagnosed as delirium and TIA
EEG-no seizures
CT scan of the chest abdomen pelvis -negative
Patient does have a history of COVID 19 infection end of 02/28/2024 through 03/08/2024-at that time was treated as delirium-patient was started on gabapentin, Sinemet and quetiapine
Patient was readmitted 06/18/2024 with right-sided weakness-was felt to be TIA at that time and discharged on 06/21/2024-she was already on risperidone during that admission ( Risperidone was started by )
Patient had another episode morning of 07/21/2024 with the perioral numbness and shakes of the left arm
1 more episode on 07/22/2024 where she appeared to be postictal and unresponsive, had developed right eye pain. Later in the day she appeared to be more alert and communicating
On 07/23/2024 patient continues to have right eye pain after a short relief from the occipital nerve block yesterday. Awake alert and able to communicate identify that she is at the hospital say the name of her granddaughter who is at bedside. She
does not remember anything from yesterday. Patient and granddaughter both admit that patient had some hallucinations where she was seeing her daughter who was not in the room.
Started on Keppra 500 twice daily after a load of 2 g on 07/21/2024
Lumbar puncture 07/21/2024-showed elevated protein-IVIG started on 07/21/2024
Meningitis panel negative
HIV and syphilis serologies negative
Paraneoplastic antibodies, Lyme pending
IVIG started on 07/21/2024
# Hypotension-am 07/22/24-unclear reason.
Possibly secondary to diarrhea
Chest x-ray without any evidence of infection
Urinalysis not sent
Check stools for C. difficile
# Right eye pain persisting after occipital block-no visual changes. Pupil is reactive. Ophthalmology consultation requested
# Episode of urinary retention and needed straight cath
# Diarrhea-check C. difficile
# Diabetes-hemoglobin A1c 6.7 06/19/24
Accu-Cheks and sliding scale coverage
# Hyperlipidemia-continue atorvastatin
# SANDER CKD stage III-Better, continue IVF
# COPD-continue budesonide and prednisone
# Hyperthyroidism-continue Methimazole
# Parkinson disease-continue Sinemet (under care of Anselmo Alcala MD at [facility] in [place].). She had tremors for years and it got better with Sinemet started in Mar 2024.
# Hallucinations-continue Risperidone
# Dementia-unknown type
# History of left cerebellar stroke per records ( AT [facility]?) MRI of the brain on 06/18/2024-negative
# Cervical radiculopathy-Gabapentin
# Low normal vitamin A04-apmoe p.o.
# Abnormal TSH-Normal T4-repeat as outpatient
# Ex-smoker
# History of DVT and PE- Xarelto
# DVT prophylaxis-SCDs and Xarelto
# DNR
Discussed with nursing
Granddaughter updated at bed side
Time over 50 min
Part of this note was created using voice recognition system. Occasional wrong word or��sound alike� substitutions may have inadvertently occurred due to the inherent limitations of voice recognition software. If noted kindly bring it to my
attention for correction.
Anticipated Discharge: > 48 hours
Subjective/Interval History
-
Date of Service: July 23, 2024
Objective Data
-
Labs:
Laboratory Results
07/23/24
05:33
WBC 9.1
Hgb 12.5
Hct 40.0
Plt Count 173 D
Sodium 141
Potassium 4.6
Chloride 113 H
Carbon Dioxide 24
BUN 23 H
Creatinine 1.2 H
Glucose 84
Calcium 7.8 L
Vital Signs:
Vital Signs
Temp Pulse Resp BP Pulse Ox
98.4 F 96 16 124/65 91
07/23/24 07:56 07/23/24 07:56 07/23/24 07:56 07/23/24 07:56 07/23/24 07:56
I&O
07/22/24 07/23/2407/24/25
06:59 06:59 06:59
Intake Total 520 / 520 1300 / 1300
Balance 520 / 520 1300 / 1300
[2024-07-23 16:36] LABS: Glucose - Point of Care 141 mg/dl (70-99)
--- NOTE | 2024-07-23 17:14 | W.PN.NEURO.1 ---
Today's Communication / Plan
-
IVIG day 3
Neuro Assessment/Plan
Assessment
EEG today was normal
MRI 06/2024 mild microvascular changes
had brain MRI 2 weeks ago at [facility] showing old L cerebellar stroke
the described event and pattern more consistent with complex partial seizure as it's the same sequence each time; and not TIA as previously believed. they decline rx for concerns of sedation
with seizures increasing in frequency, rapidly progressing dementia, and psychosis concern for autoimmune encephalitis
CSF WBC 0, RBC 18, glucose 71, protein 74
consistent with autoimmune encephalitis
IVIG 20 g x5 days
pre medicate tylenol/benadryl
viral encephalitis PCR negative
paraneoplastic autoantibodies pending
discussed ?Lewy Body, which possible but less likely given that she responded very well to sinemet
Eye pain - discussed switching Keppra to Trileptal which can help with neuralgia; repeating occipital nerve block + infraorbital nerve block, decided to monitor as she does not look so uncomfortable
DVT on Xarelto
Subjective/Objective
Subjective Data
Date of Service: July 23, 2024
IVIG day 3 today, tolerating well
last night eye pain returned, and now also starting to affect left eye. does not appear to be as bad as
patient has no recollection of events yesterday; has never had post ictal confusion lasting the entire day before
today gdtr feels she is mentating similar to recent baseline. continues having hallucinations. yesterday became incontinent of bowel/bladder which persists today
Objective Data
Vital Signs
Temp Pulse Resp BP Pulse Ox
36.8 C 84 14 127/70 93
07/23/24 15:32 07/23/24 15:32 07/23/24 15:32 07/23/24 15:32 07/23/24 15:32
Lab Results
07/23/24 05:33
07/23/24 05:33
PT 16.5 Sec (11.4-14.6) H 07/20/24 07:42
INR 1.27 07/20/24 07:42
Sodium 141 mmol/L (135-145) 07/23/24 05:33
Potassium 4.6 mmol/L (3.5-5.1) 07/23/24 05:33
BUN 23 mg/dl (7-17) H 07/23/24 05:33
Glucose 84 mg/dl (70-99) 07/23/24 05:33
Calcium 7.8 mg/dl (8.4-10.2) L 07/23/24 05:33
Vitamin B12 341 pg/ml (239-931) 07/19/24 17:13
Patient Allergies
No Known Allergies Allergy (Verified 12/07/22 15:13)
Physical Exam
-
AAOx3, speech slow, soft, mildly dysarthric
VFF, EOMI, face symmetric
full strength b/l UE/LE
+bradykinesia, cogwheel rigidity, resting tremor
right occipital nerve tender but today does not exacerbate the eye pain
right infraorbital nerve also tender
[2024-07-23 17:37] LABS: Urine Albumin Negative (Neg - Trace); Urine Bilirubin Negative (Negative); Urine Character Clear (Clear); Urine Color Yellow; Urine Glucose Negative (Negative); Urine Ketone Negative (Negative); Urine Leukocyte 2+ (Negative); Urine Nitrite Negative (Negative); Urine Occult Blood 2+ (Negative); Urine Urobilinogen Negative (Neg - 1+)
[2024-07-23] MEDS: BENADRYL 25 MG PO (17:44)
[2024-07-23 17:45] LABS: Urine Squamous Cell 0-2 /LPF (Few)
[2024-07-23 17:46] LABS: Urine Bacteria Moderate (Negative)
[2024-07-23] MEDS: GAMMAGARD 200 IV (17:58)
[2024-07-23] MEDS: LIPITOR 20 MG PO (17:59)
[2024-07-23 21:06] LABS: Glucose - Point of Care 136 mg/dl (70-99)
[2024-07-23] MEDS: ERYTHROMYCIN 0.5% OPHTHALMIC OINTMENT 1 APPLIC OPHTH (21:11)
[2024-07-23] MEDS: REFRESH EYE DROPS (PF) 1 DROPS BOTH EYES (21:11)
[2024-07-24] VITALS (8 sets, daily range): BP systolic 120–145; BP diastolic 49–67; BMI 22.0
[2024-07-24] MEDS: NSS 1000 IV (04:02)
[2024-07-24] MEDS: PULMICORT 0.5 MG INH ×2 (07:25→17:35)
[2024-07-24] MEDS: DUONEB 3 ML INH ×2 (07:25→17:35)
[2024-07-24] MEDS: PROTONIX 40 MG PO (08:06)
[2024-07-24] MEDS: SINEMET 25-100 2 TABLET PO ×3 (08:06→17:03)
[2024-07-24] MEDS: XARELTO 20 MG PO (08:06)
[2024-07-24] MEDS: VITAMIN B-12 1000 MCG PO (08:06)
[2024-07-24] MEDS: NEURONTIN 100 MG PO ×3 (08:06→21:08)
[2024-07-24 08:07] LABS: Glucose - Point of Care 83 mg/dl (70-99)
[2024-07-24] MEDS: ASPIR LOW (ENTERIC COATED) 81 MG PO (08:07)
[2024-07-24] MEDS: KEPPRA 500 MG IV ×2 (08:07→19:49)
[2024-07-24] MEDS: ERYTHROMYCIN 0.5% OPHTHALMIC OINTMENT 1 APPLIC OPHTH ×4 (08:07→19:50)
[2024-07-24] MEDS: DELTASONE 5 MG PO (08:07)
[2024-07-24] MEDS: REFRESH EYE DROPS (PF) BOTH EYES ×4 (08:16→19:54)
[2024-07-24] MEDS: FLORASTOR 250 MG PO ×2 (08:16→21:17)
[2024-07-24 08:55] LABS: Blood Urea Nitrogen 15 mg/dl (7-17); Calcium 7.6 mg/dl (8.4-10.2); Carbon Dioxide 21 mmol/L (22-30); Chloride 117 mmol/L (98-107); Estimated Creatinine Clearance 40 ml/min; Glucose 84 mg/dl (70-99); Sodium 141 mmol/L (135-145); eGFR > 60.00
[2024-07-24 11:38] LABS: Glucose - Point of Care 184 mg/dl (70-99)
[2024-07-24] MEDS: RISPERDAL 0.5 MG PO (12:46)
--- NOTE | 2024-07-24 13:43 | W.PN.HOSP.TC ---
Today's Communication/Plan
-
IVIG
Encourage OOB
Assessment / Plan
Assessment / Plan
79-year-old female with perioral paresthesia, slurry speech, facial droop, coordination defects and aphasia. 5 episodes in the past 5 months. To the point where she is in the memory care unit now. Patient wanders at nighttime at home and family
did not feel safe to keep her home. She was recently seen at [facility] on July 09 ( daughter said there was 2 episodes of speech abnormality days apart at [facility]). She was admitted here in March as well as June .Family says she has periods
of Normalcy. And periods of confusion. She has been getting progressively worse in terms of hallucinations and memory issues -she talks to relative and make dinner for people who are not there- She comes out if it some times feels was real and
some times she feels was not real. Sometimes this is scary for her. Family feels that the quality of her life is suffering because of this.
EEG-07/19/2024-normal
CT scan chest abdomen and pelvis with IV contrast-linear densities within the posterior lower lungs likely dependent atelectasis. Mild coronary artery calcifications. 1 cm round lesion arising from the anterior lower pole of the kidney compatible
with cysts. Bony degenerative changes.
Cardiovascular system S1-S2 appreciated
Abdomen soft and nontender
Chest clear to auscultation
Pupils are equal round reactive
Good motor strength bilateral upper extremities and lower extremities
No facial droop
Patient is able to read with the right eye
Complains of irritation to the right eye. Patient does not feel that she has had any more hallucinations.
# Recurrent Neuro Symptoms previously diagnosed as delirium and TIA
EEG-no seizures
CT scan of the chest abdomen pelvis -negative
Patient does have a history of COVID 19 infection end of 02/28/2024 through 03/08/2024-at that time was treated as delirium-patient was started on gabapentin, Sinemet and quetiapine
Patient was readmitted 06/18/2024 with right-sided weakness-was felt to be TIA at that time and discharged on 06/21/2024-she was already on risperidone during that admission ( Risperidone was started by )
Patient had another episode morning of 07/21/2024 with the perioral numbness and shakes of the left arm
1 more episode on 07/22/2024 where she appeared to be postictal and unresponsive, had developed right eye pain. Later in the day she appeared to be more alert and communicating
On 07/23/2024 patient continues to have right eye pain after a short relief from the occipital nerve block yesterday. Awake alert and able to communicate identify that she is at the hospital say the name of her granddaughter who is at bedside. She
does not remember anything from yesterday. Patient and granddaughter both admit that patient had some hallucinations where she was seeing her daughter who was not in the room.
Started on Keppra 500 twice daily after a load of 2 g on 07/21/2024
Lumbar puncture 07/21/2024-showed elevated protein-IVIG started on 07/21/2024
Meningitis panel negative
HIV and syphilis serologies negative
Paraneoplastic antibodies, Lyme pending
IVIG started on 07/21/2024
# Hypotension-am 07/22/24-unclear reason.
Possibly secondary to diarrhea
Chest x-ray without any evidence of infection
Urinalysis not sent
Check stools for C. difficile
# Right eye pain persisting after occipital block-no visual changes. Pupil is reactive. Ophthalmology consultation appreciated. Secondary to corneal abrasion. IV antibiotic ointment-erythromycin ointment, cool compresses, artificial tears.
Ophthalmology advised against the patch as she can open the eyes inside the patch and cause more rubbing.
# Episode of urinary retention and needed straight cath
# Diarrhea-resolved.
# Diabetes-hemoglobin A1c 6.7 06/19/24
Accu-Cheks and sliding scale coverage
# Hyperlipidemia-continue atorvastatin
# SANDER CKD stage III-Better, stop IV fluids
# COPD-continue budesonide and prednisone
# Hyperthyroidism-continue Methimazole
# Parkinson disease-continue Sinemet (under care of Anselmo Alcala MD at [facility] in [place].). She had tremors for years and it got better with Sinemet started in Mar 2024.
# Hallucinations-continue Risperidone
# Dementia-unknown type
# History of left cerebellar stroke per records ( AT [facility] [place]?) MRI of the brain on 06/18/2024-negative
# Cervical radiculopathy-Gabapentin
# Low normal vitamin J82-tpckk p.o.
# Abnormal TSH-Normal T4-repeat as outpatient
# Ex-smoker
# History of DVT and PE- Xarelto
# DVT prophylaxis-SCDs and Xarelto
# DNR
Discussed with nursing
Discussed with ophthalmology yesterday
Part of this note was created using voice recognition system. Occasional wrong word or��sound alike� substitutions may have inadvertently occurred due to the inherent limitations of voice recognition software. If noted kindly bring it to my
attention for correction.
Anticipated Discharge: 24 - 48 hours
Subjective/Interval History
-
Date of Service: July 24, 2024
Objective Data
-
Labs:
Laboratory Results
07/24/24
07:38
Sodium 141
Potassium 4.0
Chloride 117 H
Carbon Dioxide 21 L
BUN 15
Creatinine 0.9
Glucose 84
Calcium 7.6 L
Vital Signs:
Vital Signs
Temp Pulse Resp BP Pulse Ox
98.3 F 64 14 145/61 100
07/24/24 07:45 07/24/24 07:45 07/24/24 07:45 07/24/24 07:45 07/24/24 07:45
I&O
07/23/24 07/24/24 07/25/24
06:59 06:59 06:59
Intake Total 1300 / 1300 1200 / 1200
Output Total 1350 / 1350
Balance 1300 / 1300 -150 / -150
[2024-07-24 14:28] LABS: Vitamin D, 25-OH*** 13.4 ng/mL (30-80)
[2024-07-24] MEDS: NSS IV (14:33)
[2024-07-24 16:43] LABS: Glucose - Point of Care 174 mg/dl (70-99)
[2024-07-24] MEDS: GAMMAGARD 200 IV (17:04)
[2024-07-24] MEDS: LIPITOR 20 MG PO (17:05)
[2024-07-24] MEDS: NOVOLOG FLEXPEN-LOW RESISTANCE 1 UNITS SC (17:36)
--- NOTE | 2024-07-24 20:18 | W.PN.NEURO.1 ---
Today's Communication / Plan
-
finish IVIG tomorrow and discharge friday
Neuro Assessment/Plan
Assessment
EEG today was normal
MRI 06/2024 mild microvascular changes
had brain MRI 2 weeks ago at [facility] showing old L cerebellar stroke
the described event and pattern more consistent with complex partial seizure as it's the same sequence each time; and not TIA as previously believed
seizure semiology: perioral paresthesias --> slurred speech --> facial droop --> losing coordination --> tips over to the side --> aphasia --> post ictal confusion
with seizures increasing in frequency, rapidly progressing dementia, and psychosis concern for autoimmune encephalitis
CSF WBC 0, RBC 18, glucose 71, protein 74
consistent with autoimmune encephalitis
IVIG 20 g x5 days
pre medicate tylenol/benadryl
viral encephalitis PCR negative
paraneoplastic autoantibodies pending
discussed ?Lewy Body, which possible but less likely given that she responded very well and did not have worsening mentation with Sinemet
Right Eye pain - responded to occipital nerve block, discussed switching Keppra to Trileptal which can help with neuralgia; repeating occipital nerve block + infraorbital nerve block, decided to monitor as relatively mild
DVT on Xarelto
Subjective/Objective
Subjective Data
Date of Service: July 24, 2024
spoke with gdtr, yesterday patient was mentating reasonably well; today disoriented, more psychotic symptoms, wants to go downstairs for [employer]
right eye pain is mild
thus far does not appear to be responding to IVIG
Objective Data
Vital Signs
Temp Pulse Resp BP Pulse Ox
36.9 C 87 18 130/58 93
07/24/24 19:21 07/24/24 19:21 07/24/24 19:21 07/24/24 19:21 07/24/24 19:21
Lab Results
07/23/24 05:33
07/24/24 07:38
PT 16.5 Sec (11.4-14.6) H 07/20/24 07:42
INR 1.27 07/20/24 07:42
Sodium 141 mmol/L (135-145) 07/24/24 07:38
Potassium 4.0 mmol/L (3.5-5.1) 07/24/24 07:38
BUN 15 mg/dl (7-17) 07/24/24 07:38
Glucose 84 mg/dl (70-99) 07/24/24 07:38
Calcium 7.6 mg/dl (8.4-10.2) L 07/24/24 07:38
Vitamin B12 341 pg/ml (239-931) 07/19/24 17:13
Patient Allergies
No Known Allergies Allergy (Verified 12/07/22 15:13)
Physical Exam
-
AAOx3, speech slow, soft, mildly dysarthric
VFF, EOMI, face symmetric
full strength b/l UE/LE
+bradykinesia, cogwheel rigidity, resting tremor
[2024-07-24 21:09] LABS: Glucose - Point of Care 160 mg/dl (70-99)
[2024-07-25] VITALS (7 sets, daily range): BP systolic 130–165; BP diastolic 58–89; BMI 21.4
[2024-07-25] MEDS: DUONEB 3 ML INH ×2 (07:17→20:14)
[2024-07-25] MEDS: PULMICORT 0.5 MG INH ×2 (07:17→20:14)
[2024-07-25 07:20] LABS: Blood Urea Nitrogen 15 mg/dl (7-17); Calcium 8.2 mg/dl (8.4-10.2); Carbon Dioxide 21 mmol/L (22-30); Chloride 117 mmol/L (98-107); Estimated Creatinine Clearance 36 ml/min; Glucose 95 mg/dl (70-99); Potassium 3.9 mmol/L (3.5-5.1); Sodium 143 mmol/L (135-145); eGFR 58.02
[2024-07-25 07:32] LABS: Glucose - Point of Care 90 mg/dl (70-99)
[2024-07-25] MEDS: NOVOLOG FLEXPEN-LOW RESISTANCE SC ×2 (07:32→16:43)
[2024-07-25] MEDS: VITAMIN B-12 1000 MCG PO (07:35)
[2024-07-25] MEDS: FLORASTOR 250 MG PO ×2 (07:35→20:46)
[2024-07-25] MEDS: XARELTO 20 MG PO (07:35)
[2024-07-25] MEDS: NEURONTIN 100 MG PO ×3 (07:36→20:42)
[2024-07-25] MEDS: DELTASONE 5 MG PO (07:36)
[2024-07-25] MEDS: PROTONIX 40 MG PO (07:36)
[2024-07-25] MEDS: ERYTHROMYCIN 0.5% OPHTHALMIC OINTMENT 1 APPLIC OPHTH ×4 (07:36→20:42)
[2024-07-25] MEDS: ASPIR LOW (ENTERIC COATED) 81 MG PO (07:36)
[2024-07-25] MEDS: REFRESH EYE DROPS (PF) 1 DROPS BOTH EYES ×2 (07:36→13:40)
[2024-07-25] MEDS: SINEMET 25-100 2 TABLET PO ×3 (07:37→16:49)
[2024-07-25] MEDS: KEPPRA 500 MG IV ×2 (07:42→20:41)
--- NOTE | 2024-07-25 10:38 | CM ---
Addendum entered by Alaina Evans 07/25/24 11:17:
PT changed recommendation to SNF.
PT spoke to the family a little bit about it and they are considering SNF vs potentially more assistance at home
CM spoke with granddaughter, Berta, to discuss; she will decide on disposition plan after she speaks with Attending
Addendum entered by Alaina Evans 07/25/24 11:06:
CM consult for home health services completed; referral sent via [facility] to [facility]
Original Note:
Berta Nicholson, called; prefers [facility] for home health services when discharged back to [facility] Care unit. [facility]
She also requested to speak with Attending; request sent/acknowledged via [employer]
[2024-07-25 11:14] LABS: Glucose - Point of Care 191 mg/dl (70-99)
[2024-07-25] MEDS: RISPERDAL 0.5 MG PO (11:38)
[2024-07-25] MEDS: NOVOLOG FLEXPEN-LOW RESISTANCE 1 UNITS SC (11:38)
[2024-07-25 13:45] LABS: Paraneoplastic Ab IgG, CSF None Detected (None Detected)
--- NOTE | 2024-07-25 13:48 | W.PN.HOSP.TC ---
Today's Communication/Plan
-
IVIG
Bladder scan
One dose of Monurol
Assessment / Plan
Assessment / Plan
79-year-old female with perioral paresthesia, slurry speech, facial droop, coordination defects and aphasia. 5 episodes in the past 5 months. To the point where she is in the memory care unit now. Patient wanders at nighttime at home and family
did not feel safe to keep her home. She was recently seen at [facility] on July 09 ( daughter said there was 2 episodes of speech abnormality days apart at [facility]). She was admitted here in March as well as June .Family says she has periods
of Normalcy. And periods of confusion. She has been getting progressively worse in terms of hallucinations and memory issues -she talks to relative and make dinner for people who are not there- She comes out if it some times feels was real and
some times she feels was not real. Sometimes this is scary for her. Family feels that the quality of her life is suffering because of this.
EEG-07/19/2024-normal
CT scan chest abdomen and pelvis with IV contrast-linear densities within the posterior lower lungs likely dependent atelectasis. Mild coronary artery calcifications. 1 cm round lesion arising from the anterior lower pole of the kidney compatible
with cysts. Bony degenerative changes.
Cardiovascular system S1-S2 appreciated
Abdomen soft and nontender
Chest clear to auscultation
Pupils are equal round reactive
Good motor strength bilateral upper extremities and lower extremities
No facial droop
Patient is able to read with the right eye
# Recurrent Neuro Symptoms previously diagnosed as delirium and TIA
EEG-no seizures
CT scan of the chest abdomen pelvis -negative for malignancy
Patient does have a history of COVID 19 infection end of 02/28/2024 through 03/08/2024-at that time was treated as delirium-patient was started on gabapentin, Sinemet and quetiapine
Patient was readmitted 06/18/2024 with right-sided weakness-was felt to be TIA at that time and discharged on 06/21/2024-she was already on risperidone during that admission ( Risperidone was started by )
Patient had another episode morning of 07/21/2024 with the perioral numbness and shakes of the left arm
1 more episode on 07/22/2024 where she appeared to be postictal and unresponsive, had developed right eye pain. Later in the day she appeared to be more alert and communicating
On 07/23/2024 patient continues to have right eye pain after a short relief from the occipital nerve block continue to have confusion episodes. Ophthalmology consulted
07/24/2024-and 07/25/2024 granddaughter at bedside states that patient still continues to have visual hallucinations where she is seeing people and feel that they are talking to her. Patient is awake alert and able to communicate
Started on Keppra 500 twice daily after a load of 2 g on 07/21/2024
Lumbar puncture 07/21/2024-showed elevated protein-IVIG started on 07/21/2024
Meningitis panel negative
HIV and syphilis serologies negative
Paraneoplastic antibodies, Lyme pending
IVIG started on 07/21/2024 last dose of IVIG on 07/25/2024
# Hypotension-am 07/22/24-unclear reason.
Possibly secondary to diarrhea
Diarrhea resolved.
Chest x-ray without any evidence of infection
Urinalysis noted- gave a dose of Monurol for cystitis.
# Right eye pain persisted after occipital block 07/23/2024-no visual changes. Pupil is reactive. Ophthalmology consultation appreciated. Secondary to corneal abrasion. IV antibiotic ointment-erythromycin ointment, cool compresses, artificial
tears. Ophthalmology advised against the patch as she can open the eyes inside the patch and cause more rubbing.
# Episode of urinary retention and needed straight cath. Check PVR
# Diarrhea-resolved.
# Diabetes-hemoglobin A1c 6.7 06/19/24
Accu-Cheks and sliding scale coverage
# Hyperlipidemia-continue atorvastatin
# SANDER CKD stage III-Better, stopped IV fluids
# COPD-continue budesonide and prednisone
# Hyperthyroidism-continue Methimazole
# Parkinson disease-continue Sinemet (under care of Anselmo Alcala MD at [facility] in [place].). She had tremors for years and it got better with Sinemet started in Mar 2024. But they feel that hallucinations are
persisting
# Hallucinations-continue Risperidone
# Dementia-unknown type
# History of left cerebellar stroke per records ( AT [facility]?) MRI of the brain on 06/18/2024-negative
# Cervical radiculopathy-Gabapentin
# Low normal vitamin [id number] p.o.
# Abnormal TSH-Normal T4-repeat as outpatient
# Ex-smoker
# History of DVT and PE- Xarelto
# DVT prophylaxis-SCDs and Xarelto
# DNR
Discussed with nursing
Long discussion with granddaughter at bedside in detail. She is puzzled that patient does not quite have a diagnosis at this point. We discussed that paraneoplastic antibody panel and Lyme is pending. I also encouraged to seek tertiary care
workup. She also has reservation sending the patient to rehab. Granddaughter is exploring into additional services at [facility] then discharging patient to a SNF.
Part of this note was created using voice recognition system. Occasional wrong word or��sound alike� substitutions may have inadvertently occurred due to the inherent limitations of voice recognition software. If noted kindly bring it to my
attention for correction.
Time spent over 50 minutes
Anticipated Discharge: Within 24 hours
Subjective/Interval History
-
Date of Service: July 25, 2024
Objective Data
-
Labs:
Laboratory Results
07/25/24
06:38
Sodium 143
Potassium 3.9
Chloride 117 H
Carbon Dioxide 21 L
BUN 15
Creatinine 1.0
Glucose 95
Calcium 8.2 L
Vital Signs:
Vital Signs
Temp Pulse Resp BP Pulse Ox
99 F 56 15 165/66 94
07/25/24 07:13 07/25/24 07:19 07/25/24 07:19 07/25/24 07:13 07/25/24 09:55
I&O
07/24/24 07/25/24 07/26/24
06:59 06:59 06:59
Intake Total 1200 / 1200 960 / 960
Output Total 1350 / 1350
Balance -150 / -150 960 / 960
[2024-07-25] MEDS: MONUROL 3 GM PO (15:12)
--- NOTE | 2024-07-25 15:45 | W.PN.NEURO.1 ---
Today's Communication / Plan
-
Sinemet 2 tab TID
Keppra 500 BID
Neuro Assessment/Plan
Assessment
EEG today was normal
MRI 06/2024 mild microvascular changes
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
the described event and pattern more consistent with complex partial seizure as it's the same sequence each time; and not TIA as previously believed
seizure semiology: perioral paresthesias --> slurred speech --> facial droop --> losing coordination --> tips over to the side --> aphasia --> post ictal confusion
with seizures increasing in frequency, rapidly progressing dementia, and psychosis concern for autoimmune encephalitis
CSF WBC 0, RBC 18, glucose 71, protein 74
consistent with autoimmune encephalitis, finishes 5 days of IVIG today, though lack of response to IVIG suggests that it is not.
viral encephalitis PCR negative
paraneoplastic autoantibodies negative
discussed ?Dementia with Lewy Bodies(DLB) with symptomatic seizures, worsening mentation with Sinemet consistent with this. Constellation of rapidly progressive dementia, psychosis, parkinsonism, generally progressing over 3-5 years. REM behavior
disorder could be consistent with either DLB or PDD, no definitive test to distinguish the two, it is based on clinical course and expert opinion
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
Right Eye pain - responded to occipital nerve block, discussed switching Keppra to Trileptal which can help with neuralgia; repeating occipital nerve block + infraorbital nerve block, decided to monitor as relatively mild
DVT on Xarelto
Subjective/Objective
Subjective Data
Date of Service: July 25, 2024
does not appear to be responding to IVIG
no further seizures
gdtr clarifies that patient's mentation worsened with Sinemet, it really helped with the physical symptoms, they tried decreasing Sinemet to 1/2 tab TID but with the severity of physical symptoms, it was increased to 2 tab TID
she also describes symptoms of REM behavior disorder
Objective Data
Vital Signs
Temp Pulse Resp BP Pulse Ox
37.1 C 57 14 137/66 96
07/25/24 14:57 07/25/24 14:57 07/25/24 14:57 07/25/24 14:57 07/25/24 14:57
Lab Results
07/23/24 05:33
07/25/24 06:38
PT 16.5 Sec (11.4-14.6) H 07/20/24 07:42
INR 1.27 07/20/24 07:42
Sodium 143 mmol/L (135-145) 07/25/24 06:38
Potassium 3.9 mmol/L (3.5-5.1) 07/25/24 06:38
BUN 15 mg/dl (7-17) 07/25/24 06:38
Glucose 95 mg/dl (70-99) 07/25/24 06:38
Calcium 8.2 mg/dl (8.4-10.2) L 07/25/24 06:38
Vitamin B12 341 pg/ml (239-931) 07/19/24 17:13
Patient Allergies
No Known Allergies Allergy (Verified 12/07/22 15:13)
[2024-07-25] MEDS: MIRALAX 17 GRAMS PO (16:42)
[2024-07-25 16:44] LABS: Glucose - Point of Care 80 mg/dl (70-99)
[2024-07-25] MEDS: LIPITOR 20 MG PO (17:11)
[2024-07-25] MEDS: REFRESH EYE DROPS (PF) BOTH EYES ×2 (17:11→20:43)
[2024-07-25] MEDS: GAMMAGARD 200 IV (17:17)
[2024-07-25 21:20] LABS: Glucose - Point of Care 140 mg/dl (70-99)
[2024-07-25] MEDS: MELATONIN 5 MG PO (22:12)
[2024-07-26 05:12] LABS: Lyme Disease DNA by PCR Not Detected; Lyme Source CSF
[2024-07-26 07:00] VITALS: BP 149/74
[2024-07-26] MEDS: DUONEB 3 ML INH (07:51)
[2024-07-26] MEDS: PULMICORT 0.5 MG INH (07:51)
[2024-07-26 07:55] LABS: Glucose - Point of Care 77 mg/dl (70-99)
[2024-07-26] MEDS: PROTONIX 40 MG PO (09:06)
[2024-07-26] MEDS: NEURONTIN 100 MG PO (09:06)
[2024-07-26] MEDS: VITAMIN B-12 1000 MCG PO (09:07)
[2024-07-26] MEDS: SINEMET 25-100 2 TABLET PO ×2 (09:07→12:59)
[2024-07-26] MEDS: ASPIR LOW (ENTERIC COATED) 81 MG PO (09:07)
[2024-07-26] MEDS: FLORASTOR 250 MG PO (09:07)
[2024-07-26] MEDS: DELTASONE 5 MG PO (09:07)
[2024-07-26] MEDS: REFRESH EYE DROPS (PF) 1 DROPS BOTH EYES ×2 (09:08→13:01)
[2024-07-26] MEDS: XARELTO 20 MG PO (09:08)
[2024-07-26] MEDS: KEPPRA IV ×2 (09:09→13:11)
[2024-07-26] MEDS: ERYTHROMYCIN 0.5% OPHTHALMIC OINTMENT 1 APPLIC OPHTH ×2 (09:09→13:02)
[2024-07-26] MEDS: MIRALAX 17 GRAMS PO (09:10)
[2024-07-26] MEDS: TAPAZOLE 5 MG PO (09:17)
[2024-07-26] MEDS: NOVOLOG FLEXPEN-LOW RESISTANCE SC ×2 (09:31→12:58)
[2024-07-26 10:02] LABS: Blood Urea Nitrogen 14 mg/dl (7-17); Calcium 8.5 mg/dl (8.4-10.2); Carbon Dioxide 20 mmol/L (22-30); Chloride 115 mmol/L (98-107); Estimated Creatinine Clearance 40 ml/min; Glucose 92 mg/dl (70-99); Sodium 142 mmol/L (135-145); eGFR > 60.00
[2024-07-26 11:33] LABS: Glucose - Point of Care 90 mg/dl (70-99)
[2024-07-26] MEDS: RISPERDAL 0.5 MG PO (12:58)
--- NOTE | 2024-07-26 13:04 | W.PN.HOSP.TC ---
Today's Communication/Plan
-
Discharge
Assessment / Plan
Assessment / Plan
Gen-AAOx3, NAD
HEENT-NC, AT, anicteric, clear oral mm
Neck-supple
CV-reg, no M, +S1/S2
Lungs-clear B/L
Abd-soft, NT, ND
Ext-no edema
Musculoskeletal-no cyanosis, clubbing
Skin-warm and dry
Neuro-grossly non-focal
Psych-calm, cooperative
Recurrent Neuro Symptoms previously diagnosed as delirium and TIA. Spoke with neurology service, presumed diagnosis is Lewy body dementia.
EEG-no seizures
CT scan of the chest abdomen pelvis -negative for malignancy
Patient does have a history of COVID 19 infection end of 02/28/2024 through 03/08/2024-at that time was treated as delirium-patient was started on gabapentin, Sinemet and quetiapine
Patient was readmitted 06/18/2024 with right-sided weakness-was felt to be TIA at that time and discharged on 06/21/2024-she was already on risperidone during that admission ( Risperidone was started by )
Patient had another episode morning of 07/21/2024 with the perioral numbness and shakes of the left arm
1 more episode on 07/22/2024 where she appeared to be postictal and unresponsive, had developed right eye pain. Later in the day she appeared to be more alert and communicating
On 07/23/2024 patient continues to have right eye pain after a short relief from the occipital nerve block continue to have confusion episodes. Ophthalmology consulted
07/24/2024-and 07/25/2024 granddaughter at bedside states that patient still continues to have visual hallucinations where she is seeing people and feel that they are talking to her. Patient is awake alert and able to communicate
Started on Keppra 500 twice daily after a load of 2 g on 07/21/2024
Lumbar puncture 07/21/2024-showed elevated protein-IVIG started on 07/21/2024
Meningitis panel negative
HIV and syphilis serologies negative
Paraneoplastic antibodies, Lyme pending
IVIG started on 07/21/2024 last dose of IVIG on 07/25/2024
Granddaughter requesting that we taper down dose of Risperdal due to side effects.
Hypotension-am 07/22/24-unclear reason.
Possibly secondary to diarrhea
Diarrhea resolved.
Chest x-ray without any evidence of infection
Urinalysis noted- gave a dose of Monurol for cystitis. Urine culture noted.
Right eye pain persisted after occipital block 07/23/2024-no visual changes. Pupil is reactive. Ophthalmology consultation appreciated. Secondary to corneal abrasion. IV antibiotic ointment-erythromycin ointment, cool compresses, artificial
tears. Ophthalmology advised against the patch as she can open the eyes inside the patch and cause more rubbing.
Episode of urinary retention and needed straight cath. Check PVR
Diarrhea-resolved.
Diabetes-hemoglobin A1c 6.7 06/19/24
Accu-Cheks and sliding scale coverage
Hyperlipidemia-continue atorvastatin
SANDER CKD stage III-Better, stopped IV fluids
COPD-continue budesonide and prednisone
Hyperthyroidism-continue Methimazole
Parkinson disease-continue Sinemet (under care of Anselmo Alcala MD at [facility] in [place].). She had tremors for years and it got better with Sinemet started in Mar 2024. But they feel that hallucinations are
persisting
Hallucinations-continue Risperidone
Dementia-unknown type
History of left cerebellar stroke per records ( AT [facility]?) MRI of the brain on 06/18/2024-negative
Cervical radiculopathy-Gabapentin
Low normal vitamin S99-uakkw p.o.
Abnormal TSH-Normal T4-repeat as outpatient
Ex-smoker
History of DVT and PE- Xarelto
DVT prophylaxis-SCDs and Xarelto
DNR
Dispo -medically stable for discharge back to [facility]. Discussed with granddaughter at the bedside. Discussed with nursing. Updated case management, awaiting their input.
Anticipated Discharge: Today
Subjective/Interval History
-
Date of Service: July 26, 2024
Patient seen and examined. No complaints.
Objective Data
-
Labs:
Laboratory Results
07/26/24
06:50
Sodium 142
Potassium 4.0
Chloride 115 H
Carbon Dioxide 20 L
BUN 14
Creatinine 0.9
Glucose 92
Calcium 8.5
Vital Signs:
Vital Signs
Temp Pulse Resp BP Pulse Ox
98.5 F 63 16 149/74 96
07/26/24 07:00 07/26/24 08:02 07/26/24 08:02 07/26/24 07:00 07/26/24 08:02
I&O
07/25/24 07/26/24 07/27/24
06:59 06:59 06:59
Intake Total 960 / 960 1200 / 1200
Balance 960 / 960 1200 / 1200
Review of Systems
-
History Source: Patient
All other systems: Reviewed and negative
--- NOTE | 2024-07-26 13:14 | W.DS.TRANS ---
DC Summary - Community Health Agent
-
Discharge Instructions:
Sleep Apnea Risk Low
Discharge Diagnosis/Procedures Dementia
Diet Diabetic, Carb Controlled
Activity As tolerated,With assistance
Driving Restrictions No driving
Bathing Restrictions None
Instructions:
Stand-Alone Forms:
Changes to Home Medications: Yes
Discharge Medications:
DC Medications w/original date entered in [facility]
rivaroxaban 20 mg tablet (Xarelto) 20 mg PO DAILY DVT/PE 12/03/21
atorvastatin 20 mg tablet 20 mg PO QPM High Cholesterol 12/07/22
ipratropium 0.5 mg-albuterol 3 mg (2.5 mg base)/3 mL nebulization soln 3 ml inhalation R BID Lung/Breathing Issues 01/28/23
famotidine 20 mg tablet (Pepcid) 20 mg PO DAILY Gastrointestinal Issue 04/07/23
budesonide 0.5 mg/2 mL suspension for nebulization 0.5 mg inhalation R BID Lung/Breathing Issues 02/27/24
prednisone 5 mg tablet 5 mg PO DAILY inflammation 02/27/24
carbidopa 25 mg-levodopa 100 mg tablet 2 tab PO TID@0800,1200,1700 Neurological Condition 06/18/24
aspirin 81 mg tablet,delayed release 81 mg PO DAILY 07/19/24
methimazole 5 mg tablet 5 mg PO MOWEFR 07/19/24
Saccharomyces boulardii 250 mg capsule 250 mg PO BID #0 caps 07/26/24
cyanocobalamin (vitamin B-12) 1,000 mcg tablet (Vitamin B-12) 1,000 mcg PO DAILY #0 tabs 07/26/24
erythromycin 5 mg/gram (0.5 %) eye ointment 0.5 inch RIGHT EYE Q2HPRN PRN PAIN #0 grams 07/26/24
erythromycin 5 mg/gram (0.5 %) eye ointment 1 applic ophthalmic (eye) QID #3.5 grams 07/26/24
gabapentin 100 mg capsule 100 mg PO TID #0 caps 07/26/24
levetiracetam 500 mg tablet (Keppra) 500 mg PO BID #60 tabs 07/26/24
pantoprazole 40 mg tablet,delayed release 40 mg PO DAILY #0 tabs 07/26/24
polyethylene glycol 3350 17 gram oral powder packet 17 g PO DAILY #0 ea 07/26/24
polyvinyl alcohol-povidone (PF) 1.4 %-0.6 % eye drops in a dropperette (Refresh Classic (PF)) 1 drops BOTH EYES Q2HPRN PRN PAIN #0 ea 07/26/24
polyvinyl alcohol-povidone (PF) 1.4 %-0.6 % eye drops in a dropperette (Refresh Classic (PF)) 1 drops BOTH EYES QID #0 ea 07/26/24
risperidone 0.5 mg tablet (Risperdal) 0.25 mg (1/2 x 0.5 mg) PO NOON #14 tabs 07/26/24
Home Medication Changes
Risperidone dose reduced to 0.25 mg daily.
Pending Results: No
--- NOTE | 2024-07-26 13:15 | CM ---
Addendum entered by MARYCHUY Lobato 07/26/24 13:32:
MEt with patient and granddgtr to discuss d/c today. Berta will drive patient back to [facility].
Dr. at [facility] is Dr. Suggs.
Speech eval to be added to [facility] referral.
Original Note:
CM recieved TT from attending. Patient back to baseline & can go back to [facility]. SPoke to Mary Alice at [facility] and will accept back at 3 pm today. Plan is [facility] home care at discharge.
[2024-07-26] MEDS: KEPPRA 500 MG PO (13:26)
--- NOTE | 2024-07-26 14:31 | PTOTSP ---
ST Acute Care Evaluation
Pt is currently presenting with clinical signs of mild oropharyngeal dysphagia characterized by occasional mild L labial loss with liquids, mild prolonged mastication and bolus formation with hard solids, slightly reduced oral clearance with solids,
and occasional coughing s/p ingestion of thin liquids - more with sequential sips, which could be indicative of airway invasion.
Recommendations:
- Continue with regular solids, thin liquids, meds as tolerated.
- Aspiration precautions: small bites/sips, single sips, slow intake rate, alternate solids/liquids.
- ELECTRIC DRILL OPERATOR to f/u re: diet tolerance, use of compensatory strategies, and to determine if pt would benefit from an instrumental swallow study.
- ELECTRIC DRILL OPERATOR to f/u re: cognitive linguistic evaluation, if desired.
== END 2024-07-26 14:11 | disposition home or self-care (01) | DRG 57 ==
LOC: 3 WEST ACU 17:22
PROVIDERS: Hospitalist; Physician Assistant Medical; Radiology Vascular & Interventional Radiology; ADMITTING PHYSICIAN Hospitalist; ATTENDING PHYSICIAN Hospitalist; CONSULT PHYSICIAN Ophthalmology; CONSULT PHYSICIAN Psychiatry & Neurology Clinical Neurophysiology; EMERGENCY PHYSICIAN Emergency Medicine; FAMILY PHYSICIAN Family Medicine
PROC: B01B1ZZ Fluoroscopy of Spinal Cord using Low Osmolar Contrast (ICD-10-PCS; 2024-07-21)
PROC: 009U3ZX Drainage of Spinal Canal, Percutaneous Approach, Diagnostic (ICD-10-PCS; 2024-07-21)
DX: G31.83 Neurocognitive disorder with Lewy bodies (principal); N17.9 Acute kidney failure, unspecified; G40.209 Localization-related (focal) (partial) symptomatic epilepsy and epileptic syndromes with complex partial seizures, not intractable, without status epilepticus; F02.80 Dementia in other diseases classified elsewhere, unspecified severity, without behavioral disturbance, psychotic disturbance, mood disturbance, and anxiety; M54.81 Occipital neuralgia; E78.5 Hyperlipidemia, unspecified; N18.31 Chronic kidney disease, stage 3a; J44.9 Chronic obstructive pulmonary disease, unspecified; E05.90 Thyrotoxicosis, unspecified without thyrotoxic crisis or storm; G20.A1 Parkinson's disease without dyskinesia, without mention of fluctuations; Z66 Do not resuscitate; S05.01XA Injury of conjunctiva and corneal abrasion without foreign body, right eye, initial encounter; Z87.891 Personal history of nicotine dependence; Z79.01 Long term (current) use of anticoagulants; I12.9 Hypertensive chronic kidney disease with stage 1 through stage 4 chronic kidney disease, or unspecified chronic kidney disease; M54.12 Radiculopathy, cervical region; Z86.73 Personal history of transient ischemic attack (TIA), and cerebral infarction without residual deficits
CPT/HCPCS: 62328; 71046; 71260; 74177; 80048; 80053; 81003; 81015; 82306; 82607; 82746; 82945; 82962; 84157; 84439; 84443; 85025; 85027; 85610; 85652; 86140; 86255; 86780; 87015; 87070; 87077; 87086; 87147; 87186; 87205; 87389; 87476; 87483; 89051; 92610; 93005; 94640; 95816; 97163; 97530; 99285; J1569; Q9967

== ENCOUNTER → 2024-07-29 09:20 | Outpatient (REF) | payer OTHER, SELFPAY ==
[2024-07-29 10:53] LABS: Hematocrit 40.3 % (37.0-47.0); Hemoglobin 12.5 g/dL (12.0-16.0); Mean Platelet Volume 10.8 fL (7.4-10.4); Platelet Count 260 10^3/uL (130-400)
[2024-07-29 11:21] LABS: ALT (SGPT) 29 U/L (0-35); AST (SGOT) 41 U/L (14-36); Albumin 3.5 g/dl (3.5-5.0); Alkaline Phosphatase 71 U/L (38-126); Blood Urea Nitrogen 20 mg/dl (7-17); Calcium 8.4 mg/dl (8.4-10.2); Carbon Dioxide 26 mmol/L (22-30); Chloride 111 mmol/L (98-107); Glucose 84 mg/dl (70-99); HDL Cholesterol 41 mg/dl; LDL Cholesterol, Calculated 61 mg/dl; Potassium 4.6 mmol/L (3.5-5.1); Sodium 142 mmol/L (135-145); Total Bilirubin 0.8 mg/dl (0.2-1.3); Total Cholesterol 132 mg/dl (50-199); Total Protein 7.5 g/dl (6.3-8.2); Triglyceride 150 mg/dl (10-149); Very Low Density Lipoprotein 30 mg/dl (0-30); eGFR 58.02
[2024-07-29 11:31] LABS: Free T4 1.47 ng/dl (0.78-2.19)
[2024-07-29 11:45] LABS: TSH 1.26 uIU/ml (0.47-4.68)
[2024-07-31 12:49] LABS: Keppra (Levetiracetam) 25 ug/mL (10-40)
== END ==
LOC: OLABMERCHI 09:20
PROVIDERS: ATTENDING PHYSICIAN Hospitalist
DX: J44.9 Chronic obstructive pulmonary disease, unspecified (principal); E05.90 Thyrotoxicosis, unspecified without thyrotoxic crisis or storm; G40.89 Other seizures
CPT/HCPCS: 36415; 80053; 80061; 80177; 84439; 84443; 85027

== ENCOUNTER 2024-08-10 20:16 | Inpatient (IN) | payer OTHER, SELFPAY ==
[2024-08-10 17:00] VITALS: BMI 21.1
[2024-08-10 17:09] VITALS: BP 131/88
[2024-08-10 17:32] LABS: % Basophils 0.3 % (0-2); % Eosinophils 0.2 % (0-6); % Immature Granulocytes 0.3 % (0-0.5); % Lymphocytes 20.3 % (20.5-51.1); % Monocytes 6.5 % (1.7-9.3); % Neutrophils 72.4 % (42.2-75.2); Absolute Lymphocytes 1.3 10^3/uL (1.2-3.4); Absolute Monocytes 0.4 10^3/uL (0.1-0.6); Absolute Neutrophils 4.7 10^3/uL (1.4-6.5); Hematocrit 39.2 % (37.0-47.0); Mean Corp Hgb Conc. 33.2 g/dL (33.0-37.0); Mean Corpuscular Hgb 27.1 pg (27.0-31.0); Mean Corpuscular Volume 81.7 fL (81.0-99.0); Mean Platelet Volume 10.5 fL (7.4-10.4); Nucleated Red Blood Cells % 0 %; Platelet Count 258 10^3/uL (130-400); Red Cell Dist. Width 17.2 % (11.5-14.5); White Blood Cell Count 6.5 10^3/uL (4.8-10.8)
[2024-08-10 18:00] LABS: Blood Urea Nitrogen 20 mg/dl (7-17); Calcium 9.2 mg/dl (8.4-10.2); Carbon Dioxide 23 mmol/L (22-30); Chloride 107 mmol/L (98-107); Glucose 122 mg/dl (70-99); Potassium 4.5 mmol/L (3.5-5.1); Sodium 137 mmol/L (135-145); eGFR 51.75
[2024-08-10 18:04] VITALS: BP 147/79
--- NOTE | 2024-08-10 18:06 | ED.GENMED ---
History of Present Illness
General
Chief Complaint: Rectal Bleeding
Time Seen by Provider: 08/10/24 18:02
History of Present Illness
History of Present Illness:
I reviewed records. The patient was seen here last month with a change in mental status and had LP and EEG and ultimately diagnosed with Lewy body dementia versus viral encephalitis.
Note:
CHIEF COMPLAINT(S)
The patient presented with complaints of black tarry stools.
HISTORY OF PRESENT ILLNESS
The patient is a 79-year-old female who has been experiencing black tarry stools for approximately four to seven days, as per her granddaughter. The stools are described as very sticky, similar in consistency to meconium. The granddaughter noticed
this change upon returning from a four-day trip, whereas the patients condition may have been ongoing even prior to her absence. There is no reported presence of red blood within the stool. The patient resided in memory care at [facility] after a
recent hospitalization. Additionally, there is noted concern for a potential gastrointestinal bleed due to the nature of the stool and her current medications, which include anticoagulants. The patient is on Rivaroxaban for a history of a deep vein
thrombosis (DVT), pulmonary embolism (PE), and stroke. A concern for potential fall was discussed due to the presence of a bruise and a laceration near the left elbow, both suggestive of a possible recent fall. The granddaughter mentioned noticing a
decline in her mental status, which appeared worse than it was two hours prior to the ED visit. The patient had not experienced any vomiting or hematemesis.
ADDITIONAL HISTORY OBTAINED FROM SOURCES OTHER THAN THE PATIENT
- Per the patients granddaughter, who has been actively involved in her caregiving, the patient has been having black tarry stools and was also observed to have worsening mental status. Furthermore, the granddaughter mentioned that the patient is
under memory care, has been compliant with her medication for DVT, and had not experienced any falls prior to their interaction.
- According to previous error records, the patient has a history of atrial fibrillation following surgery and is now on Rivaroxaban for a DVT, PE, and stroke prevention.
EXTERNAL RECORDS REVIEWED
Reviewed records from previous visits indicating the patient is on anticoagulation due to DVT and stroke prevention. Lab results showing hematological stability with a normal hemoglobin level were noted.
CHRONIC MEDICAL CONDITIONS SIGNIFICANTLY AFFECTING CARE
- History of deep vein thrombosis (DVT)
- Stroke
- History of atrial fibrillation post-surgery
- Pulmonary embolism (PE)
PHYSICAL EXAM
- Nursing notes reviewed and vital signs reviewed.
- Abdomen: No tenderness noted upon palpation.
- Cardiovascular: Regular heart rate and rhythm; no signs indicative of atrial fibrillation.
- Neurological: The patient has evidence of dementia, she struggled with naming the month, however she did ultimately know that she is at [facility] but she cannot tell me why she is here her insight and judgment are limited
- Extremities: One centimeter laceration with a small amount of fresh blood near the left elbow; no sign of fracture with active range of motion intact.
PROBLEM LIST
Acute:
- Suspected gastrointestinal bleed presenting as black tarry stools.
- Mental status decline.
Chronic:
- History of deep vein thrombosis.
- History of pulmonary embolism.
- History of stroke.
- History of atrial fibrillation post-surgery.
PLAN
- Obtain a CT scan of the brain to evaluate for possible intracranial event due to altered mental status.
- Continue reviewing the patients prior records for more information.
- Consider hospital admission in light of presenting symptoms and history.
- Will give dose of Protonix as well
DIFFERENTIAL DIAGNOSIS
The Differential Diagnosis includes, in no particular order and is not limited to:
1. Gastrointestinal bleed from peptic ulcer disease
2. Gastroesophageal reflux disease with bleeding
3. Gastric cancer
4. Esophageal varices
5. Rosa-Hernandez tear
6. Diverticulitis with bleeding
7. Ischemic bowel disease
8. Coagulation disorder due to anticoagulation overuse
9. Cerebral vascular accident (CVA) due to anticoagulant use
10. Small bowel neoplasm
CARE-UPDATE
08/10/24 - 19:09
Performed digital rectal examination revealed presence of significant Desitin in the perianal region. Obtained stool sample was very dark and slightly hem positive. Advanced age and use of aspirin and Xarelto raise concern for potential upper GI
bleeding. Patients history includes DVT/PE and prior CVA. Given progressively worsening mental status, imaging studies are indicated, and admission to hospital is planned for further evaluation.
08/10/24 - 19:09
Hemoglobin levels stable, maintaining at 13.0, consistent with baseline. No new intervention required at this time.
08/10/24 - :[address] scan has not yet been read by the radiologist, but there are no immediate signs of intracranial bleeding by my read. The patient has shown positive results on hemacult testing, indicating potential gastrointestinal bleeding, with the stool
appearing dark and possibly tarry. Given the patients current medications, including aspirin, and her worsening mental status, it is recommended that she stay in the hospital overnight. The hospitalist, Dr. Buck or an associate, will be
consulted to determine further management. It is important for the family to discuss options and next steps with the hospitalist.
Past History
Past History
ED Past Medical History: COPD, CVA (in 2011, ? TIA in 2018), Hyperthyroidism and Other (PE/DVT's, Alzheimers, Vertigo in 2019)
ED Past Surgical History: Appendectomy, (X 2) and Orthopedic (Cervical spine surgery)
Social History
Tobacco: Former smoker
Alcohol: None
Drug: None
Personal:
Living: assisted living ([facility])
Employment: Retired
Family History
Family History: Other (Noncontributory)
Phy Exam
Physical Exam
Physical Exam:
See HPI
Course
Orders/Labs/Results
Orders:
Orders
08/10/24 Dinner
Clear Liquid
At Your Request: Full Participation
Clear Liquids: No red liquids
08/10/24 17:22
Type+Screen Urgent
BMP [Basic Metabolic Panel] Urgent
Complete Blood Count/With Diff Urgent
08/10/24 17:56
ABO2 Routine
BBK Wristband Number:
Associate notified that ABO2 has been ordered: [id number]
Date: 08/10/24
Time: 17:37
Box Printer ID: [id number]
08/10/24 18:16
CT Head W/o Iv Contrast Urgent
Comment:
Reason For Exam: alt ms; worsening; ?falls, xarelto
08/10/24 19:11
Pantoprazole [Protonix IV] 40 mg IV NOW STA
08/10/24 20:02
Admit/Transfer Patient As Directed
Co-Sign Provider:
Level of Care: Inpatient admission
Assign to:: Telemetry
Physician / Group: Cielo
Diagnosis: Melena
Reason for Telemetry: Other
Other Reason for Telemetry: GI bleed
Date to Stop Telemetry: 08/12/24
Time to Stop Telemetry: 11:00
Reason for Hospitalization: GI bleed
Expected length of stay greater than two midnights?: Yes
ELOS- Estimated Length of Stay in days: 2
I certify the patient meets the requirements for IP care: Yes
PRN Pain Medication Management As Directed
May give lesser potent ordered pain med per pt: Yes
preference::
Protocol:: Medication orders for pain may be administered in a
manner that supports deferring to patient preference
when the pt is:
- Requesting an ordered lesser potent pain medication.
Least to most potent pain medications are defined
as: acetaminophen < NSAID < tramadol < opioids
(morphine, oxycodone, hydromorphone).
- Requesting a lesser dose of the same medication IF
ORDERED.
- Requesting a less intrusive route of administration
if both routes are prescribed by the provider (PO <
IV).
08/10/24 20:04
Code Status As Directed
Resuscitation Status: Full Code
08/10/24 21:05
0.9% Sodium Chloride 1000 ml [Nss] 1,000 ml IV 100 mls/hr
0.9% Sodium Chloride 500 ml [Nss] 500 ml IV BOLUS
Ondansetron Injectable [Zofran] 4 mg IV Q6HPRN PRN
08/10/24 21:05
Activity As Directed
Activity Level: With Assistance
INT (Intravenous Needle Therapy) As Directed
Comment: Place 2 IV catheters of the largest bore possible until stable
Orthostatic Vital Signs As Directed
Orthostatic VS Frequency: Now
Comment: then every four hours for twenty-four hours
Pneumatic Compression Sleeves As Directed
Type: Knee high
Stool for occult blood [Hemetest Stools] As Directed
Vital Signs As Directed
Frequency: Per unit guidelines
DX Deep Vein Thrombosis Video Routine
08/10/24 22:00
Gabapentin [Neurontin] 100 mg PO TID
08/10/24 22:35
H&H Q8H
08/11/24 06:16
Basic Metabolic Panel IN AM
PTT IN AM
Prothrombin Time IN AM
08/11/24 08:00
Budesonide [Pulmicort] 0.5 mg INH R BID
Carbidopa/Levodopa [Sinemet 25-100] 2 tablet PO TID@0800,1200,1700
Cyanocobalamin [Vitamin B-12] 1,000 mcg PO DAILY
Famotidine [Pepcid] 20 mg PO DAILY
Ipratropium/Albuterol Sulfate [Duoneb] 3 ml INH R BID
Levetiracetam [Keppra] 500 mg PO BID
Methimazole [Tapazole] 5 mg PO MoWeFr@0800
Pantoprazole [Protonix IV] 80 mg IV BID
08/11/24 12:00
Risperidone [Risperdal] 0.25 mg PO NOON
08/11/24 18:00
Atorvastatin [Lipitor] 20 mg PO QPM
08/12/24 11:00
DC Protocol for Telemetry ONCE
Abnormal Lab Results
08/10/24
17:22
RDW 17.2 H %
(11.5-14.5)
MPV 10.5 H fL
(7.4-10.4)
Lymphocytes % 20.3 L %
(20.5-51.1)
BUN 20 H mg/dl
(7-17)
Creatinine 1.1 H mg/dL
(0.6-1.0)
Glucose 122 H mg/dl
(70-99)
08/10/24 17:22
08/10/24 17:22
Vital Signs
Initial and Last Documented VS:
Initial Vital Signs
Temp Pulse Resp BP Pulse Ox
37.0 C 63 18 131/88 100
08/10/24 17:09 08/10/24 17:09 08/10/24 17:09 08/10/24 17:09 08/10/24 17:09
Last Documented Vital Signs
Temp Pulse Resp BP Pulse Ox
36.3 C 65 16 146/59 97
08/11/24 19:50 08/11/24 19:50 08/11/24 19:50 08/11/24 19:50 08/11/24 19:50
*Critical Care Note
Total Time (30-74mins, 75-104mins- exclusive of procedures): Not Applicable
ED Attending Note
-
Portions of this chart may have been created with voice recognition software.� Occasional wrong word or��sound alike� substitutions may have occurred due to the inherent limitations of voice recognition software.
Discharge Plan
Departure
Patient Disposition: Admit
Date of Disposition: 08/10/24
Time of Disposition: 19:23
Presentation/result/management discussed w/ accepting MD/DO: Hospitalist
Discharge Problem:
Black tarry stools
Interventions
Interventions:
*Risk Screen - Suicide Last Done: 08/10/24 19:09
*General Assessment Last Done: 08/10/24 19:10
*Neglect/Abuse Screening Last Done: 08/10/24 17:09
*ED- Fall Risk Assessment Last Done: 08/10/24 21:00
*ED COVID-19 Vaccine History Last Done: 08/10/24 19:10
*Nursing Disposition Last Done: 08/10/24 21:00
XK-Pxbpgo-Kzxnebcgso Assessment Last Done: 08/10/24 19:06
ED- Cardiac Assessment Last Done: 08/10/24 19:10
ED- Pulmonary Assessment Last Done: 08/10/24 19:10
Discharge Date and Time
Discharge Date/Time: 08/10/24 21:00
[2024-08-10 19:00] VITALS: BP 136/77
--- NOTE | 2024-08-10 19:27 | HPS.HSE ---
Family Physician
-
Family Physician: Kt Morales
Chief Complaint
-
Black tarry stools
History of Present Illness
This is a 79-year-old female with past medical history of COPD, Parkinson's disease, DVT/PE, 1 prior episode of atrial fibrillation, TIA, dementia who presents to the emergency department from memory care unit for black tarry stools 4 days and
continued worsening mental status.
Patient is a poor historian. The daughter thought that maybe she had a fall. She also felt that there is rapid deterioration of her mental status. She is awake and alert on examination and memory is consistent with dementia. Low etiology for any
change in mental status by ED physician.
Patient is on Xarelto for history of DVT PE and 1 prior episode of atrial fibrillation and history of CVA. She is also on aspirin. She has been on Xarelto since DVT PE in 2021. She had an extensive DVT at that time. She did have outpatient
hematology workup and was negative for genetic coagulability or any other hypercoagulable state. She reports that she has had multiple TIAs and an MRI that showed old CVA. There are some question whether this TIAs were actually nonconvulsive
seizure episodes. She was placed on aspirin around January of last year for TIAs.
She denies prior history of melena or hematochezia. No recent EGDs.
Patient reported that she started taking a count of stools for about 1 week and it is unclear whether she has been having black stools for that long or it started more recently. Granddaughter reported that the patient had large melanotic stool
this a.m. She found her with some bruises in her arm and back which was discussed that she might of fall. Is unclear whether she was syncopal. She reported that she did have low blood pressures in the 90s and was more altered than baseline. She
now appears to be coming around to her baseline mental status.
Digital rectal exam in the emergency department was mildly heme positive.
She was recently admitted and discharged for progressive decline in mental status that appeared to be more acute. She had an extensive workup with LP at that time. The LP was consistent with possible viral encephalitis. Viral panel was completely
negative. There was concern for autoimmune encephalitis. Patient was treated with 5 days of IVIG without any significant improvement. They also remain concern for Lewy body dementia at this time. She was discharged on same medications admission
meds.
In the emergency department she was hemodynamically stable. Blood pressure was 136/77 pulse of 57 and she was satting 96% on room air.
Hemoglobin was 13 which is unchanged from prior. Platelet counts is within normal limit. Electrolytes were normal. BUN and creatinine are unchanged from prior 20 and 1.1.
Medical History
Past Medical History
Past Medical History: Reports Other
Additional Past Medical History:
TIA / CVA
Essential Hypertension
Hyperlipidemia
Diabetes Mellitus, Type II
CKD Stage III
COPD
Hyperthyroidism
Parkinson Disease
Dementia
DVT/PE
Cervical Radiculopathy
Past Surgical History: Reports Other
Additional Past Surgical History:
Cervical Spine Fusion
Section
Right Cataract
Appendectomy
Left Carotid Blockage
Social History
Tobacco: Former Smoker
Living: Other (Patient is now residing in a memory care unit)
Family History
Family History: Not pertinent
Allergies / Home Medications
Allergies reflects when Allergies were last updated in [employer].
Home Medications with original date entered in [employer]
Allergy/Medication List:
Allergies
Allergy/AdvReac Type Severity Reaction Status Date / Time
No Known Allergies Allergy Verified 12/07/22 15:13
Home Medications
rivaroxaban 20 mg tablet (Xarelto) 20 mg PO DAILY DVT/PE 12/03/21
atorvastatin 20 mg tablet 20 mg PO QPM High Cholesterol 12/07/22
ipratropium 0.5 mg-albuterol 3 mg (2.5 mg base)/3 mL nebulization soln 3 ml inhalation R BID Lung/Breathing Issues 01/28/23
famotidine 20 mg tablet (Pepcid) 20 mg PO DAILY Gastrointestinal Issue 04/07/23
budesonide 0.5 mg/2 mL suspension for nebulization 0.5 mg inhalation R BID Lung/Breathing Issues 02/27/24
prednisone 5 mg tablet 5 mg PO DAILY inflammation 02/27/24
gabapentin 100 mg capsule 100 mg PO TID 30 days #90 caps 03/08/24
carbidopa 25 mg-levodopa 100 mg tablet 2 tab PO TID@0800,1200,1700 Neurological Condition 06/18/24
risperidone 0.5 mg tablet 0.5 mg PO NOON Neurological Condition 06/18/24
aspirin 81 mg tablet,delayed release 81 mg PO DAILY 07/19/24
methimazole 5 mg tablet 5 mg PO MOWEFR 07/19/24
Review of Systems
-
A 12 point ROS was completed and negative except as noted: Yes
Constitutional: Denies Fever or Chills
Respiratory: Denies Cough or Trouble Breathing
Cardiac: Denies Chest Pain or Palpitations
Abdomen/GI: Reports Black Stools
: Reports No Symptoms
Neurological: Reports See HPI
Endocrine: Reports No Symptoms
Physical Exam
Vital Signs
Vital Signs
Temp Pulse Resp BP Pulse Ox
98.6 F 57 16 136/77 95
08/10/24 17:09 08/10/24 19:00 08/10/24 19:00 08/10/24 19:00 08/10/24 19:00
Physical Exam
General: Comfortable and Conversant
HEENT: Anicteric and Moist mucous membranes
Respiratory: Clear and Non Labored Respirations
Cardiac: S1/S2 and Regular Rhythm
GI: Soft and Non Tender
Rectal: Hem Positive
Musculoskeletal: No Clubbing, No Cyanosis and No Edema
Skin: Warm and Dry
Neuro: Awake, Alert and No Motor Deficits
Psych: Calm
Laboratory Results
-
08/10/24 17:22
08/10/24 17:22
Data Reviewed
-
CT Scan: Report Reviewed by me
Lab Data: Labs Reviewed by me
Old Records: Reviewed
Impression/Plan
-
IMPRESSION:
79-year-old with history of progressive dementia with extensive workup recently with concern for autoimmune encephalitis/viral encephalitis/Lewy body dementia. The evaluation and treatment for the viral and abdominal encephalitis were negative.
She was discharged home on her usual medications. She comes now for episode of black tarry stools and was found to be heme positive in the ED. She did close abdominal pain and decreased p.o. intake. There is some concern for episode of low blood
pressure at home today but currently she is hemodynamically stable. Hemoglobin is normal. Platelets normal. She is on Xarelto and aspirin.
PLAN:
Melena�likely upper GI bleed from gastritis or peptic ulcer disease in the setting of aspirin and Xarelto use.
- Admit to telemetry
- Giving history is likely can hold both aspirin and Xarelto temporarily, will hold for 24 hours
- Will guaiac all stool
- orthostatic vs
- iv fluids
- Type and screen for now
- H&H q 8
- PPI IV twice daily
- Clear liquid diet as tolerated
- GI consultation
Altered mental status -patient appears to be at baseline. CT of the head shows no acute intracranial process.
- Continue Keppra
- Continue her gabapentin
Continue her risperidone
Parkinson's disease
- Continue carbidopa levodopa
Hyperthyroid
- Continue methimazole
DVT prophylaxis�SCDs for now
CODE STATUS�full code
[2024-08-10 20:00] VITALS: BP 148/76
[2024-08-10] MEDS: PROTONIX IV 40 MG IV (20:35)
[2024-08-10 22:01] VITALS: BMI 21.1
[2024-08-10] MEDS: NSS 500 IV (22:05)
[2024-08-10] MEDS: NEURONTIN 100 MG PO (22:13)
--- NOTE | 2024-08-10 22:20 | PTCARENOTE ---
Admission completed with granddaughter Berta at bedside. Berta states she is medical power of tax attorney to patient and is with patient daily helping with care, meds, etc. Patient lives at [facility]. Granddaughter states patient has
had black/tarry stools for several days now, and has been newly incontinent of both urine and stool since her last admission, recently DCd 07/26. Also states that patient has been having issues with urinary retention that is worsening over the last
few days. During that admission, patient brought in for concern of TIA -- diagnosed with seizures and started on Keppra. Granddaughter is concerned with labile HR and low BPs, also new -- tachy/sue at times -- states patient baseline is stable
with no concerns and followed by cardiology. Patient with abrasion to left forearm, and red bruising to B/L elbows that granddaughter states may have been from a fall at [facility] prior to admission - unwitnessed and patient does not recall.
Abrasion cleansed with silicone dressing applied, B/L protective foams placed to elbows as well. Patient and granddaughter report recent weight loss of approximately 10 pounds -- poor appetite that is worsening over time as well. No concerns with
baseline feeding/swallowing, however granddaughter reports that she has some dysphagia following seizure activity that will only last approx 1 hour and then she is back to baseline with no concerns. Patient is known to have INT hallucinations at
night. New IV obtained with VAT RN to right wrist, RAC remains patent. IV bolus running at this time per orders -- continuous IVFs to follow. Call story in reach, will monitor.
[2024-08-10 22:48] LABS: Hematocrit 36.6 % (37.0-47.0); Hemoglobin 12.2 g/dL (12.0-16.0)
[2024-08-10] MEDS: NSS 1000 IV (23:01)
--- NOTE | 2024-08-10 23:18 | W.PN.UPDATE ---
Update Note
Progress Note Update
Asked by RN to see patient to confirm code status. Reviewed code status with patient, explained full code/DNR. Patient verbalized understanding and wants no CPR or mechanical ventilation and wishes to be DNR. Called patient's granddaughter, Berta,
who confirmed that patient is to be DNR.
[2024-08-10 23:22] VITALS: BP 146/63; BP 88/60; PULSE 58
[2024-08-10 23:23] VITALS: BP 88/60
[2024-08-11] VITALS (8 sets, daily range): BP systolic 117–146; BP diastolic 49–78; PULSE 20–82; BMI 21.1
[2024-08-11] MEDS: NSS 1000 IV ×2 (06:15→21:22)
--- NOTE | 2024-08-11 06:34 | CON.GI ---
Addendum entered and electronically signed by Byron Wilkins MD 08/11/24 10:28:
The patient is a 79-year-old female with past medical history as noted presents with dark stools. She had recent hospitalization for change in mental status thought to be likely from autoimmune encephalitis. For the past week she and her
granddaughter had noted black stools. The patient states that these were formed and not loose or tarry. She has been having some decreased appetite as well as weight loss and increasing heartburn though denies any dysphagia or odynophagia. She
never had an endoscopy or colonoscopy. On admission she was found to have normal hemoglobin, normal iron studies. Rectal exam today showed brown stool. Exam was otherwise benign.
1. Black stool: Unclear if is related to bleeding or not, in the setting of anticoagulation. Her hemoglobin remained stable, iron studies are normal. She does have some upper GI symptoms including early satiety and increasing heartburn, and
etiology such as peptic ulcer disease or possible though again no signs of brisk active bleeding now. Other etiologies including malignancy are not completely excluded the do seem less likely. I discussed with her and her granddaughter at length,
will plan EGD tomorrow, though if negative and hemoglobin remained stable would hold on colonoscopy. Will continue supportive care for now.
Original Note:
Consultation
-
Date/Time Consultation Requested: 08/11/24 0230
Date/Time Consultation Performed: 08/11/24 0800
Requesting Provider: Blaise Buck MD
Performing Provider: FIDENCIO Del Real, Prashanth Wilkins MD
Reason for Consultation: melena
Medical History
Chief Complaint / HPI
Chief Complaint: black stools.
History of Present Illness:
Pt is a 79yo with hx afib, prior PE/DVT on Xarelto, parkinson's disease, COPD, CVA, dementia, CKD, hyperthyroidism, DM, Hyperlipidemia, cervical fusion with onset of black stools for 4 days with change in mental status. On admission noted with hbg
13 with BUN 20. Per ER noted with dark with slightly heme + stool and also noted recent hypotension. Pt with recent admission with recurrent neuro changes and concern for TIA, dementia and possible seizure vs autoimmune encephalitis with IVIG
therapy with neuro evaluation. During admission noted with stable CT.
In review with patient and family patient noted since last week with black tarry stool along with decreased appetite, increased GERD,shortness of breath, and abdominal pain with weight loss of a few pounds. No prior hx EGD/colon and on daily
ASA without any other NSAID use. Pt otherwise denies dysphagia, constipation or red blood in stools.
Past Medical History
Past Medical History: Arrhythmias (afib ), COPD, CVA (TIA), Hypercholesterolemia, Hyperthyroidism, NIDDM, Renal Failure (CKD), Psychiatric (dementia ) and Other (parkinson's, DVT/PE, neuropathy, recent admission with possible seizure vs autoimmune
encephalitis with IVIG therapy with neuro evaluation. )
Past Surgical History: Appendectomy, , Orthopedic (cervical fusion) and Other (cataract surgery)
Social History
Tobacco: Former Smoker
Alcohol: None
Drug: None
Living: Other (lives at [facility] )
Employment: Retired
Family History
Family History: Other (mother with esophageal CA)
Allergies / Home Medications
Allergy/AdvReac Type Severity Reaction Status Date / Time
No Known Allergies Allergy Verified 12/07/22 15:13
�Medication �Instructions �Recorded
rivaroxaban 20 mg tablet (Xarelto) 20 mg PO DAILY DVT/PE 12/03/21
atorvastatin 20 mg tablet 20 mg PO QPM High Cholesterol 12/07/22
ipratropium 0.5 mg-albuterol 3 mg 3 ml inhalation R BID 01/28/23
(2.5 mg base)/3 mL nebulization Lung/Breathing Issues
soln
famotidine 20 mg tablet (Pepcid) 20 mg PO DAILY Gastrointestinal 04/07/23
Issue
budesonide 0.5 mg/2 mL suspension 0.5 mg inhalation R BID 02/27/24
for nebulization Lung/Breathing Issues
carbidopa 25 mg-levodopa 100 mg 2 tab PO TID@0800,1200,1700 06/18/24
tablet parkinson's disease
aspirin 81 mg tablet,delayed 81 mg PO DAILY Blood Clot 07/19/24
release Prevention/Tx
methimazole 5 mg tablet 5 mg PO MOWEFR Thyroid 07/19/24
Saccharomyces boulardii 250 mg 250 mg PO BID #0 caps 07/26/24
capsule
cyanocobalamin (vitamin B-12) 1,000 mcg PO DAILY #0 tabs 07/26/24
1,000 mcg tablet (Vitamin B-12)
gabapentin 100 mg capsule 100 mg PO TID #0 caps 07/26/24
levetiracetam 500 mg tablet 500 mg PO BID #60 tabs 07/26/24
(Keppra)
Review of Systems
-
Unable to obtain full review of systems at this time due to: Dementia
History Source: Patient and Family
Constitutional: Reports Weight Gain and Other (recent eye pain )
EENT: Reports No Symptoms
Respiratory: Reports Trouble Breathing
Cardiac: Reports No Symptoms
Abdomen/GI: Reports Abdominal Pain, Black Stools (with tarry consistency ) and Other (increased gerd and decreased appetite )
: Reports No Symptoms
Musculoskeletal: Reports Other (? recent fall )
Neurological: Reports Weakness
Endocrine: Reports No Symptoms
Hematologic/Lymphatic: Reports Bleeding
Vital Signs
Temp Pulse Resp BP Pulse Ox
99.2 F 55 20 143/60 94
08/11/24 03:20 08/11/24 03:20 08/11/24 03:20 08/11/24 03:20 08/11/24 03:20
Physical Exam
Exam
General: Well Developed, Well Nourished and No Apparent Distress
HEENT: Normocephalic and Anicteric
Respiratory: Clear
Cardiac: Regular Rhythm
GI: Soft, Non Tender and Non Distended
Rectal: Other (minimal stool sample with brown heme neg stool some limited exam with pt resistence for exam but agreeable and completed with RN in room)
Musculoskeletal: No Clubbing and No Cyanosis
Skin: Warm and Dry
Neuro: Awake, Alert and Other (forgetful)
Psych: Calm
Results
WBC 6.5 10^3/uL (4.8-10.8) 08/10/24 17:22
Hgb 12.2 g/dL (12.0-16.0) 08/10/24 22:35
Hct 36.6 % (37.0-47.0) L 08/10/24 22:35
MCV 81.7 fL (81.0-99.0) 08/10/24 17:22
Plt Count 258 10^3/uL (130-400) 08/10/24 17:22
Absolute Neuts (auto) 4.7 10^3/uL (1.4-6.5) 08/10/24 17:22
Sodium 137 mmol/L (135-145) 08/10/24 17:22
Potassium 4.5 mmol/L (3.5-5.1) 08/10/24 17:22
Chloride 107 mmol/L (98-107) 08/10/24 17:22
Carbon Dioxide 23 mmol/L (22-30) 08/10/24 17:22
BUN 20 mg/dl (7-17) H 08/10/24 17:22
Creatinine 1.1 mg/dL (0.6-1.0) H 08/10/24 17:22
Calcium 9.2 mg/dl (8.4-10.2) 08/10/24 17:22
Diagnostic Image Results:
07/19/24 CT Chest/abd/pelvis
IMPRESSION: Linear densities within the posterior lower lungs, most likely dependent atelectasis, similar to previous examination.
Mild coronary artery calcifications. Please correlate with symptoms of and risk factors for coronary artery disease, with further workup as clinically appropriate.
1 cm round lesion arising from the anterior lower pole of the left kidney, corresponding to hyperdense lesion on prior CT. This is compatible with a small hyperdense cysts.
Bony degenerative changes as described.
Prior GI Procedures:
EGD: none
Colonoscopy: none
Assessment / Plan
-
Pt is a 79yo with hx afib, prior PE/DVT on Xarelto, parkinson's disease, COPD, CVA, dementia, CKD, hyperthyroidism, DM, cervical fusion with onset of black stools for 4 days with change in mental status. On admission noted with hbg 13 with BUN
20. Pt on daily ASA. Per ER noted with dark with slightly heme + stool and also noted recent hypotension. Pt with recent admission with recurrent neuro changes and concern for TIA, dementia and possible seizure vs autoimmune encephalitis with IVIG
therapy with neuro evaluation. During admission noted with stable CT. In review with patient and family patient noted since last week with black tarry stool along with decreased appetite, increased GERD,shortness of breath, and abdominal pain with
weight loss of a few pounds.
-melena
-wt loss with decreased appetite, wt loss and increased GERD
-hypotension
-change in mental status with recent admission with concern for TIA, dementia and possible seizure vs autoimmune encephalitis with IVIG therapy
other med problems:
-DM
-hyperthyroidism on Methimazole
- parkinson's disease
-COPD
-CVA
-dementia
- CKD
-cervical fusion
-vitamin D deficiency
-low normal B12
PLAN:
ETiology of black stools unclear- PUD with ASA, ectasia, mass vs other
I reviewed with POA granddaughter Berta for EGD +/- colonoscopy 08/12 after Xarelto wash out (last dose 610 AM)- would be agreeable for work up
per family pt with recent decreased appetite and may not prep well
add iron studies, pt with recent low normal B12
trend hbg and stool record
repeat rectal limited with minimal stool sample brown heme neg stool
cont PPI BID
clear diet no reds
-
-
Thank you for consultation and allowing me to participate in the patient's care. Please call the consumer affairs specialist GI physician during the after hours with any questions or concerns.
[2024-08-11 06:45] LABS: APTT 29.5 Sec (23.4-35.0); INR 1.25; PT 15.9 Sec (11.4-14.6)
[2024-08-11 06:58] LABS: Blood Urea Nitrogen 17 mg/dl (7-17); Calcium 8.8 mg/dl (8.4-10.2); Carbon Dioxide 25 mmol/L (22-30); Chloride 114 mmol/L (98-107); Estimated Creatinine Clearance 32 ml/min; Glucose 75 mg/dl (70-99); Potassium 4.6 mmol/L (3.5-5.1); Sodium 141 mmol/L (135-145); eGFR 51.75
[2024-08-11] MEDS: PULMICORT 0.5 MG INH ×2 (07:26→19:15)
[2024-08-11] MEDS: DUONEB 3 ML INH ×2 (07:26→19:15)
[2024-08-11] MEDS: KEPPRA 500 MG PO ×2 (08:04→21:21)
[2024-08-11] MEDS: NEURONTIN 100 MG PO ×3 (08:04→21:32)
[2024-08-11] MEDS: PEPCID 20 MG PO (08:05)
[2024-08-11] MEDS: PROTONIX IV 40 MG IV ×2 (08:05→21:22)
[2024-08-11] MEDS: NSS (PRESERVATIVE FREE) 10 ML IV ×2 (08:05→21:22)
[2024-08-11] MEDS: SINEMET 25-100 2 TABLET PO ×3 (08:06→16:39)
[2024-08-11] MEDS: VITAMIN B-12 1000 MCG PO (08:06)
[2024-08-11] MEDS: TAPAZOLE 5 MG PO (08:09)
[2024-08-11 08:20] LABS: Iron 97 ug/dl (37-170)
--- NOTE | 2024-08-11 08:20 | W.PN.HOSP.TC ---
Today's Communication/Plan
-
IV PPI
clears
appreciate GI
trend Hg
Assessment / Plan
Assessment / Plan
This is a 79-year-old female with past medical history of COPD, Parkinson's disease, DVT/PE, 1 prior episode of atrial fibrillation, TIA, dementia with recent hospitalization for progressive mental decline s/p extensive work-up/ concern for Lewy
body dementia, who presents to the emergency department from memory care unit for black tarry stools 4 days and continued worsening mental status.
Melena�likely upper GI bleed from gastritis or peptic ulcer disease in the setting of aspirin and Xarelto use.
- Admit to telemetry
- Hold Xarelto and aspirin for now
- CLD
- trend Hg
- PPI IV twice daily
- Clear liquid diet as tolerated
- GI consultation appreciated, possible EGD post Xarelto washout
Dementia, possibly lewy body dementia -patient appears to be at baseline. CT of the head shows no acute intracranial process.
- Continue Keppra
- Continue her gabapentin
Continue her risperidone
Parkinson's disease
- Continue carbidopa levodopa
Hyperthyroid
- Continue methimazole
DVT prophylaxis�SCDs for now
CODE STATUS�full code
Anticipated Discharge: > 48 hours
Subjective/Interval History
-
Date of Service: August 11, 2024
no melena this morning
denies pain
Objective Data
-
Labs:
Laboratory Results
08/10/24 08/11/24
22:35 06:16
Hgb 12.2
Hct 36.6 L
PT 15.9 H
INR 1.25
APTT 29.5
Sodium 141
Potassium 4.6
Chloride 114 H
Carbon Dioxide 25
BUN 17
Creatinine 1.1 H
Glucose 75
Calcium 8.8
Vital Signs:
Vital Signs
Temp Pulse Resp BP Pulse Ox
99.5 F 58 18 125/55 94
08/11/24 07:43 08/11/24 07:43 08/11/24 07:43 08/11/24 07:43 08/11/24 07:43
I&O
08/10/24 08/11/24 08/12/24
06:59 06:59 06:59
Intake Total 120 / 120
Output Total 0 / 0
Balance 120 / 120
Review of Systems
-
History Source: Patient
All other systems: Reviewed and negative
Physical Exam
-
General: No Apparent Distress and Comfortable
HEENT: Normocephalic, Atraumatic and Moist Mucous Membranes
Respiratory: Clear to Auscultation and Non Labored Respirations
Cardiac: Regular Rhythm and S1/S2
GI: Soft, Nontender and Nondistended
Musculoskeletal: No Clubbing, No Cyanosis and No Edema
Skin: Warm and Dry
Neuro: Awake, Alert, Oriented and AO x 3
Psych: Calm
Data Reviewed
-
Diagnostic Radiology: Report Reviewed by me
Labs: Labs Reviewed by me
[2024-08-11 08:29] LABS: Percent Saturation 36 % (20-50); Total Iron Binding Capacity 268 ug/dl (265-497)
[2024-08-11 08:49] LABS: Hematocrit 38.8 % (37.0-47.0); Hemoglobin 12.4 g/dL (12.0-16.0); Mean Corpuscular Hgb 26.5 pg (27.0-31.0); Mean Corpuscular Volume 82.9 fL (81.0-99.0); Mean Platelet Volume 10.6 fL (7.4-10.4); Platelet Count 229 10^3/uL (130-400); Red Blood Cell Count 4.68 10^6/uL (4.20-5.40); Red Cell Dist. Width 17.2 % (11.5-14.5); White Blood Cell Count 5.5 10^3/uL (4.8-10.8)
[2024-08-11 09:29] LABS: Folate 9.3 ng/ml (2.76-20); Vitamin B12 972 pg/ml (239-931)
--- NOTE | 2024-08-11 10:19 | PN.CDI ---
CDI
- -
CDI:
Physician Documentation Request
Admit Date: 08/10/24 20:16
Dear Doctor Arturo,
Patient admitted with melena.
08/11 PN, 'Melena�likely upper GI bleed from gastritis or peptic ulcer disease in the setting of aspirin and Xarelto use.'
Please clarify the relationship between these conditions:
Yes, melena is associated with/exacerbated by Aspirin and Xarelto
No, melena is not associated with/exacerbated by Aspirin and Xarelto but it is due to ___. (Please specify)
Other
Use of terms such as suspected, likely, concern for, or probable (associated with a specific diagnosis that is being evaluated, monitored, or treated as if it exists) are acceptable and can be coded in the inpatient setting, when documented at the
time of discharge.
Thank you,
Radha PIERREN,RN,CCDS
CDI Specialist
Available via tiger text
Please use your independent medical judgment in providing your response.
--- NOTE | 2024-08-11 10:51 | PN.CDI ---
CDI
- -
CDI:
Physician Documentation Request
Admit Date: 08/10/24 20:16
Dear Doctor Arturo,
Patient admitted with melena.
08/10 Nursing skin assessment, 'Stage 1 bilateral elbow pressure injuries, POA.'
Physician documentation of the type and location of wounds is required for compliant documentation. Based on the above clinical findings and your assessment, please provide the following in your progress note:
Type (etiology) of ulcer/wound:
- Pressure (decubitus) ulcer
- Other
- Unable to determine
For a pressure ulcer, please also include the stage* of the ulcer:
- Stage 1 - Skin intact, non-blanchable redness
- Stage 2 - Partial thickness loss of dermis, includes intact or open blister
- Stage 3 - Full thickness tissue not including bone, tendon or muscle
- Stage 4 - Full thickness tissue loss, including exposed bone, tendon or muscle
- Unstageable - Full thickness loss in which the base of the ulcer is covered by slough (yellow, reardon, burnette, green or brown) and/or eschar (reardon, brown or black) in the wound bed.
- Unable to determine
Use of terms such as suspected, likely, concern for, or probable (associated with a specific diagnosis that is being evaluated, monitored, or treated as if it exists) are acceptable and can be coded in the inpatient setting, when documented at the
time of discharge.
Thank you,
Radha GALLEGOS,RN,CCDS
CDI Specialist
Available via [place]
Please use your independent medical judgment in providing your response.
*Source: National Pressure Ulcer Advisory Panel (NPUAP)
--- NOTE | 2024-08-11 12:24 | CM ---
Patient seen at bedside
IA completed
Left message with grand-daughter Berta
Patient resides at [facility] care unit
spoke with Florina director skills
per Florina PLOF: ambulatory without device
DME: [facility]
Current with [facility], referral [facility] in [facility]
PCP: Delores Suggs,
Pharmacy: [facility]
PLAN: tbd, will follow hospital progress, anticipate [facility] care w/[facility]SE Cottrell to continue to follow
[2024-08-11] MEDS: RISPERDAL 0.25 MG PO (13:09)
[2024-08-11 14:20] LABS: Hemoglobin 12.8 g/dL (12.0-16.0)
[2024-08-11] MEDS: LIPITOR 20 MG PO (16:39)
[2024-08-11 21:48] LABS: Hemoglobin 12.8 g/dL (12.0-16.0)
[2024-08-12 03:45] VITALS: BP 150/64
[2024-08-12] MEDS: NSS 1000 IV (05:31)
[2024-08-12 07:00] VITALS: BP 143/54
[2024-08-12 07:10] LABS: Blood Urea Nitrogen 16 mg/dl (7-17); Calcium 8.4 mg/dl (8.4-10.2); Carbon Dioxide 22 mmol/L (22-30); Chloride 114 mmol/L (98-107); Estimated Creatinine Clearance 36 ml/min; Glucose 58 mg/dl (70-99); Potassium 4.6 mmol/L (3.5-5.1); Sodium 141 mmol/L (135-145); eGFR 58.02
[2024-08-12] MEDS: SINEMET 25-100 2 TABLET PO ×2 (07:18→11:31)
[2024-08-12] MEDS: PEPCID 20 MG PO (07:18)
[2024-08-12] MEDS: NEURONTIN 100 MG PO (07:18)
[2024-08-12] MEDS: KEPPRA 500 MG PO (07:18)
[2024-08-12] MEDS: VITAMIN B-12 1000 MCG PO (07:18)
[2024-08-12] MEDS: NSS (PRESERVATIVE FREE) 10 ML IV (07:18)
[2024-08-12] MEDS: PROTONIX IV 40 MG IV (07:19)
[2024-08-12] MEDS: PULMICORT 0.5 MG INH (07:21)
[2024-08-12] MEDS: DUONEB 3 ML INH (07:21)
[2024-08-12 07:24] LABS: Hemoglobin 12.8 g/dL (12.0-16.0); Mean Corpuscular Hgb 26.6 pg (27.0-31.0); Mean Platelet Volume 10.4 fL (7.4-10.4); Platelet Count 218 10^3/uL (130-400); Red Blood Cell Count 4.82 10^6/uL (4.20-5.40); Red Cell Dist. Width 17.1 % (11.5-14.5); White Blood Cell Count 6.2 10^3/uL (4.8-10.8)
[2024-08-12] MEDS: DEXTROSE 50% SYRINGE 12.5 GRAMS IV (09:58)
--- NOTE | 2024-08-12 09:58 | W.PN.HOSP.TC ---
Addendum entered and electronically signed by Palmira Morris MD 08/12/24 10:44:
Stage 1 bilateral elbow pressure injuries, POA.
-appreciate wound care
Likely melena exacerbated by Xarelto use
Original Note:
Today's Communication/Plan
-
NPO for EGD
12.5 dextrose now pre-procedure
Assessment / Plan
Assessment / Plan
This is a 79-year-old female with past medical history of COPD, Parkinson's disease, DVT/PE, 1 prior episode of atrial fibrillation, TIA, dementia with recent hospitalization for progressive mental decline s/p extensive work-up/ concern for Lewy
body dementia, who presents to the emergency department from memory care unit for black tarry stools 4 days and continued worsening mental status.
Melena�likely upper GI bleed from gastritis or peptic ulcer disease in the setting of aspirin and Xarelto use.
- Admit to telemetry
- Hold Xarelto and aspirin for now
- NPO for EGD today
- Hg has been stable
- PPI BID
Hypoglycemia
-D50 12.5G x 1 now
-can encourage juice post procedure
Dementia, possibly lewy body dementia -patient appears to be at baseline. CT of the head shows no acute intracranial process.
- Continue Keppra
- Continue her gabapentin
Continue her risperidone
Parkinson's disease
- Continue carbidopa levodopa
Hyperthyroid
- Continue methimazole
DVT prophylaxis�SCDs for now
CODE STATUS� DNR
Anticipated Discharge: 24 - 48 hours
Subjective/Interval History
-
Date of Service: August 12, 2024
feeling well
doesn't feel lightheaded or dizzy
no further bleeding overnight
Objective Data
-
Labs:
Laboratory Results
08/12/24
06:17
WBC 6.2
Hgb 12.8
Hct 40.0
Plt Count 218
Sodium 141
Potassium 4.6
Chloride 114 H
Carbon Dioxide 22
BUN 16
Creatinine 1.0
Glucose 58 L
Calcium 8.4
Vital Signs:
Vital Signs
Temp Pulse Resp BP Pulse Ox
98.3 F 76 18 143/54 98
08/12/24 07:00 08/12/24 07:22 08/12/24 07:22 08/12/24 07:00 08/12/24 07:22
I&O
08/11/24 08/12/24 08/13/24
06:59 06:59 06:59
Intake Total 120 / 120 1080 / 1080
Output Total 0 / 0
Balance 120 / 120 1080 / 1080
Review of Systems
-
History Source: Patient
All other systems: Reviewed and negative
Physical Exam
-
General: No Apparent Distress and Comfortable
HEENT: Normocephalic, Atraumatic and Moist Mucous Membranes
Respiratory: Clear to Auscultation and Non Labored Respirations
Cardiac: Regular Rhythm and S1/S2
GI: Soft, Nontender and Nondistended
Musculoskeletal: No Clubbing, No Cyanosis and No Edema
Skin: Warm and Dry
Neuro: Awake, Alert, Oriented and AO x 3
Psych: Calm
Data Reviewed
-
Diagnostic Radiology: Report Reviewed by me
Labs: Labs Reviewed by me
[2024-08-12 10:16] LABS: Glucose - Point of Care 100 mg/dl (70-99)
[2024-08-12 10:46] LABS: Glucose - Point of Care 85 mg/dl (70-99)
[2024-08-12 10:48] VITALS: BP 143/65; BP_SYST 14
[2024-08-12 11:00] VITALS: BP_SYST 13
[2024-08-12] MEDS: RISPERDAL 0.25 MG PO (11:31)
[2024-08-12 12:00] VITALS: BP 136/63
--- NOTE | 2024-08-12 12:09 | CM ---
Addendum entered by Patricia Harris 08/12/24 14:14:
spoke with Berta grand-daughter, patient to transport to [facility]
Original Note:
Patient seen at bedside with grand-daughter Berta
Endoscopy completed
LM with Florina Enterprise Application Developer at [facility]
Updated [facility]
PLAN: [facility] w/[facility] when stable
[facility] report #: [phone] Fax #: [phone]
[facility] fax #: [phone]
grand-daughter will transport
--- NOTE | 2024-08-12 13:10 | W.DCSUMMARY ---
Discharge Summary
Discharge Data
Date of Admission: 08/10/24
Date of Discharge: 08/12/24
-
Pending Results: No
Hospital Course
Discharging Physician : Dr. Palmira Morris
Disposition : Home
Primary care physician : Dr. Kt Morales
Principal Discharge diagnosis : concern for melena
Hospital Course :
Ms. Amee Turner is a 79 yo woman with hx COPD, Parkinson's disease, DVT/PE, 1 prior episode of atrial fibrillation, TIA, dementia with recent hospitalization for progressive mental decline s/p extensive work-up/ concern for Lewy body dementia,
who presents to the emergency department from memory care unit for black tarry stools 4 days.
Triage vitals stable. Labs stable with Hg 13. She was started on IV Protonix, admitted to medicine with GI consulting. She underwent an EGD morning 08/12 post Xarelto washout. No e/o active bleeding seen. Per GI, OK to resume Xarelto and aspirin
today. She is continued on [employer] Pepcid. Patient's family is updated. She worked with PT and is discharged back to memory care facility with home PT.
Time spent on discharge was 35 minutes.
Important imaging findings :
Procedure findings :
EGD 08/12/24
Impression:
- Normal esophagus.
- Erythematous mucosa in the antrum. Biopsied.
- Normal examined duodenum.
Discharge Plan
-
Patient Disposition: Home (Routine Discharge)
Discharge Diagnosis/Procedures: status post endoscopy on 08/12/24
Diet: Regular
Activity: As tolerated
Driving Restrictions: No driving
Bathing Restrictions: None
Other Services: VN, PT and OT
Referrals:
Kt Morales, DO [Family Provider, Family Practice] - in less than 1 week
Additional Discharge Medication Instructions: You may resume Xarelto this evening (then continue to take in evenings).
Prescriptions:
Continued
atorvastatin 20 mg tablet
20 mg PO QPM
ipratropium-albuterol 0.5 mg-3 mg(2.5 mg base)/3 mL Solution For Nebulization
3 ml INHALATION R BID
famotidine [Pepcid] 20 mg Tablet
20 mg PO DAILY
budesonide 0.5 mg/2 mL Suspension For Nebulization
0.5 mg INHALATION R BID
carbidopa-levodopa 25-100 mg tablet
2 tab PO TID@0800,1200,1700
aspirin 81 mg Tablet,Delayed Release (Dr/Ec)
81 mg PO DAILY
methimazole 5 mg Tablet
5 mg PO MOWEFR
cyanocobalamin (vitamin B-12) [Vitamin B-12] 1,000 mcg Tablet
1,000 mcg PO DAILY Qty: 0 0RF
gabapentin 100 mg Capsule
100 mg PO TID Qty: 0 0RF
Saccharomyces boulardii 250 mg Capsule
250 mg PO BID Qty: 0 0RF
levetiracetam [Keppra] 500 mg tablet
500 mg PO BID Qty: 60 0RF
Changed
Xarelto 20 mg Tablet
20 mg PO QPM Qty: 0 0RF
Discharge Orders:
Discharge Patient (As Directed); Ordered 08/12/24
Ordered By: Palmira Morris
Discharge Date and Time
Print Language: KYRGYZ
--- NOTE | 2024-08-12 13:35 | W.DS.TRANS ---
DC Summary - Band Sawyer
-
Discharge Instructions:
Sleep Apnea Risk Low
Discharge Diagnosis/Procedures status post endoscopy on 08/12/24
Diet Regular
Activity As tolerated
Driving Restrictions No driving
Bathing Restrictions None
Other Services VN,PT,OT
Instructions:
Stand-Alone Forms:
Changes to Home Medications: No
Discharge Medications:
DC Medications w/original date entered in [employer]
atorvastatin 20 mg tablet 20 mg PO QPM High Cholesterol 12/07/22
ipratropium 0.5 mg-albuterol 3 mg (2.5 mg base)/3 mL nebulization soln 3 ml inhalation R BID Lung/Breathing Issues 01/28/23
famotidine 20 mg tablet (Pepcid) 20 mg PO DAILY Gastrointestinal Issue 04/07/23
budesonide 0.5 mg/2 mL suspension for nebulization 0.5 mg inhalation R BID Lung/Breathing Issues 02/27/24
carbidopa 25 mg-levodopa 100 mg tablet 2 tab PO TID@0800,1200,1700 parkinson's disease 06/18/24
aspirin 81 mg tablet,delayed release 81 mg PO DAILY Blood Clot Prevention/Tx 07/19/24
methimazole 5 mg tablet 5 mg PO MOWEFR Thyroid 07/19/24
Saccharomyces boulardii 250 mg capsule 250 mg PO BID #0 caps 07/26/24
cyanocobalamin (vitamin B-12) 1,000 mcg tablet (Vitamin B-12) 1,000 mcg PO DAILY #0 tabs 07/26/24
gabapentin 100 mg capsule 100 mg PO TID #0 caps 07/26/24
levetiracetam 500 mg tablet (Keppra) 500 mg PO BID #60 tabs 07/26/24
rivaroxaban 20 mg tablet (Xarelto) 20 mg PO QPM DVT/PE #0 tabs 08/12/24
Home Medication Changes
Pending Results: Yes
Additional Pending Results:
EGD biopsy
== END 2024-08-12 14:20 | disposition home health service (06) | DRG 813 ==
LOC: 3 WEST ACU 20:16
PROVIDERS: Emergency Medicine; Nurse Practitioner Adult Health; ADMITTING PHYSICIAN Internal Medicine; ATTENDING PHYSICIAN Student in an Organized Health Care Education/Training Program; CONSULT PHYSICIAN Internal Medicine Gastroenterology; EMERGENCY PHYSICIAN Emergency Medicine; FAMILY PHYSICIAN Family Medicine
PROC: 0DB58ZX Excision of Esophagus, Via Natural or Artificial Opening Endoscopic, Diagnostic (ICD-10-PCS; 2024-08-12)
DX: D68.32 Hemorrhagic disorder due to extrinsic circulating anticoagulants (principal); K92.2 Gastrointestinal hemorrhage, unspecified; Z87.891 Personal history of nicotine dependence; Z86.73 Personal history of transient ischemic attack (TIA), and cerebral infarction without residual deficits; F02.80 Dementia in other diseases classified elsewhere, unspecified severity, without behavioral disturbance, psychotic disturbance, mood disturbance, and anxiety; G20.A1 Parkinson's disease without dyskinesia, without mention of fluctuations; E05.90 Thyrotoxicosis, unspecified without thyrotoxic crisis or storm; L89.021 Pressure ulcer of left elbow, stage 1; L89.011 Pressure ulcer of right elbow, stage 1; Z79.01 Long term (current) use of anticoagulants; K31.89 Other diseases of stomach and duodenum
CPT/HCPCS: 88305; 70450; 80048; 82607; 82728; 82746; 82962; 83540; 83550; 85014; 85018; 85025; 85027; 85610; 85730; 86850; 86900; 86901; 88342; 94640; 97162; 99285

== ENCOUNTER 2024-08-24 14:07 | Emergency (ER) | payer OTHER, SELFPAY ==
--- NOTE | 2024-08-24 16:57 | ED.GENMED ---
History of Present Illness
General
Chief Complaint: Musculo-Skeletal Complaint
Time Seen by Provider: 08/24/24 16:57
History of Present Illness
History of Present Illness:
TIME OF INITIAL EVALUATION
- 5 PM
REVIEW OF OLD RECORDS
- History of dementia. I saw this patient 08/10/2024 and was admitted for melena for 3 days. She had an EGD on 612 that showed no active bleeding and it was deemed safe to resume Xarelto and aspirin.
Note:
CHIEF COMPLAINT(S)
Fall resulting in nasal fracture and inability to move comfortably, possible rib or shoulder pain.
HISTORY OF PRESENT ILLNESS
The patient is a 79-year-old female with a history of dementia, presenting after a fall yesterday resulting in a broken nose. The patient was seen at [facility] and discharged however granddaughter the family reports that the patient is guarding her
abdomen and unable to move around comfortably, suggesting a possible rib or shoulder issue. She was advised to seek medical attention to avoid ambulance transport. The patient is described as very uncomfortable and has a prior history of abnormal
kidney function.. Pain management is being considered with oral oxycodone due to the patients ability to swallow pills.
ADDITIONAL HISTORY OBTAINED FROM SOURCES OTHER THAN THE PATIENT
According to the family member, the patient fell at home, and there was a concern about possible rib or shoulder injury based on her guarding and inability to move comfortably. The transport to the hospital was done by car to avoid ambulance use.
CHRONIC MEDICAL CONDITIONS SIGNIFICANTLY AFFECTING CARE
Chronic conditions affecting care: Dementia, history of abnormal kidney function.
REVIEW OF SYSTEMS
- Musculoskeletal: Guarding, unable to move around comfortably, possible rib or shoulder issue.
PHYSICAL EXAM
- General: Overall appearance is consistent with dementia
- Head: No craniofacial trauma other than the ecchymosis over the nasal bone
- C-spine: No midline c-spine tenderness; normal AROM of C-spine
- Back: Normal AROM thoracolumbar spine
- HEENT: Ecchymosis noted over the nasal bone
- Cardiovascular: No murmurs, normal heart rate, regular rhythm, moderate bilateral chest wall tenderness
- Pulmonary: No respiratory distress, breath sounds are clear and equal
- Abdomen: Soft with no peritoneal signs, mild diffuse abdominal tenderness
- Neurologic: Good strength all extremities, no coordination deficits
- Psychiatric: Limited insight and judgment, minimally verbal, she is not oriented to month or place, she has limited understanding as to why she is here
- Extremities: Nontender, no edema, moves all extremities equally
- Skin: No rash, no lesions
PLAN
1. Obtain imaging to evaluate for rib or shoulder injury.
2. Review kidney function to determine the feasibility of IV contrast if imaging.
3. Administer oral oxycodone for pain management.
DIFFERENTIAL DIAGNOSIS
The Differential Diagnosis includes, in no particular order and is not limited to:
1. Rib fracture
2. Shoulder injury
3. Nasal fracture
4. Contusion from fall
5. Rib contusion
6. Shoulder dislocation
7. Vertebral fracture
8. Pneumothorax
9. Soft tissue injury
10. Osteoporosis-related fractures
RADIOLOGY
- CT chest abdomen pelvis obtained noncontrast as the patient has a history of renal insufficiency and GFR's that are commonly decreased. I have relatively low suspicion for serious injury. CT imaging noncontrast of the chest, abdomen, and pelvis
are relatively unremarkable with no sign of traumatic injury
EKG
-
LABS
- Not indicated
UPDATE
- The patient had CT imaging and was given oxycodone for pain.
SUMMARY OF ENCOUNTER
The patient, a 79-year-old female with a history of dementia, was seen in the emergency department following a fall that resulted in a nasal fracture. There was concern over possible rib or shoulder injury due to her guarding and inability to move
comfortably. Imaging studies were conducted to assess the extent of any injuries from the fall.
DISPOSITION
The patient was discharged as imaging did not reveal any concerning findings, such as rib fractures, broken bones, or internal abnormalities.
EMERGENCY TREATMENTS ADMINISTERED
A prescription for Tylenol was provided to the patient for pain management.
MEDICATION RECONCILIATION
Tylenol was prescribed at discharge for pain management.
MEDICAL DECISION MAKING
Chronic conditions affecting care include dementia and a history of abnormal kidney function. Imaging was reviewed to rule out significant injuries from the fall. Differential diagnoses included rib fracture, shoulder injury, nasal fracture,
contusion from fall, rib contusion, shoulder dislocation, vertebral fracture, pneumothorax, soft tissue injury, and osteoporosis-related fractures.
INDEPENDENT REVIEW OF LABS AND INTERPRETATION OF TESTS
My independent interpretation of the CT scan of the chest, abdomen, and pelvis is that there are no rib fractures, broken bones, or signs of internal abnormalities.
PLAN
Discharge the patient with a prescription for Tylenol and provide follow-up instructions as needed.
PATHOLOGIES TO CONSIDER
Rib fracture, shoulder injury, vertebral fracture, pneumothorax, osteoporosis-related fractures.
I spoke to the granddaughter over the phone as was now at bedside. She requests Tylenol prescription given as she is at [facility]. This was sent to her local pharmacy and the granddaughter can bead picker
Past History
Past History
ED Past Medical History: COPD, CVA (in 2011, ? TIA in 2018), Hyperthyroidism and Other (PE/DVT's, Alzheimers, Vertigo in 2019)
ED Past Surgical History: Appendectomy, (X 2) and Orthopedic (Cervical spine surgery)
Social History
Tobacco: Former smoker
Alcohol: None
Drug: None
Personal:
Living: assisted living ([facility])
Employment: Retired
Family History
Family History: Other (Noncontributory)
Phy Exam
Physical Exam
Physical Exam:
See HPI
Course
Orders/Labs/Results
Orders:
Orders
08/24/24 17:06
CT Chest/abd/pel Wo Iv Cont Urgent
Comment:
Reason For Exam: trauma, dementia, diffuse tender after fall; CKD
08/24/24 17:07
Oxycodone [Roxicodone] 5 mg PO NOW STA
Vital Signs
Initial and Last Documented VS:
Initial Vital Signs
Temp Pulse Resp BP Pulse Ox
36.7 C 85 18 127/66 95
08/24/24 14:31 08/24/24 14:31 08/24/24 14:31 08/24/24 14:31 08/24/24 14:31
Last Documented Vital Signs
Temp Pulse Resp BP Pulse Ox
36.7 C 74 18 132/97 94
08/24/24 14:31 08/24/24 19:16 08/24/24 19:16 08/24/24 19:16 08/24/24 19:16
*Pulse Oximetry
SaO2: 95
Oxygen Mode of Delivery: Room air
Patient hypoxic: no
*Critical Care Note
Total Time (30-74mins, 75-104mins- exclusive of procedures): Not Applicable
ED Attending Note
-
Portions of this chart may have been created with voice recognition software.� Occasional wrong word or��sound alike� substitutions may have occurred due to the inherent limitations of voice recognition software.
Discharge Plan
Departure
Patient Disposition: Home (Routine Discharge)
Date of Disposition: 08/24/24
Time of Disposition: 19:15
Patient with high blood pressure during this ER visit?: Yes
Discharge Problem:
Fall
Instructions: BLOOD PRESSURE, Fall Prevention for Older Adults
Prescriptions:
New
acetaminophen [Tylenol Extra Strength] 500 mg tablet
500 - 1,000 mg PO QID PRN (Reason: Pain) Qty: 30 0RF
No Action
atorvastatin 20 mg tablet
20 mg PO QPM
ipratropium-albuterol 0.5 mg-3 mg(2.5 mg base)/3 mL Solution For Nebulization
3 ml INHALATION R BID
famotidine [Pepcid] 20 mg Tablet
20 mg PO DAILY
budesonide 0.5 mg/2 mL Suspension For Nebulization
0.5 mg INHALATION R BID
carbidopa-levodopa 25-100 mg tablet
2 tab PO TID@0800,1200,1700
aspirin 81 mg Tablet,Delayed Release (Dr/Ec)
81 mg PO DAILY
methimazole 5 mg Tablet
5 mg PO MOWEFR
cyanocobalamin (vitamin B-12) [Vitamin B-12] 1,000 mcg Tablet
1,000 mcg PO DAILY Qty: 0 0RF
gabapentin 100 mg Capsule
100 mg PO TID Qty: 0 0RF
Saccharomyces boulardii 250 mg Capsule
250 mg PO BID Qty: 0 0RF
levetiracetam [Keppra] 500 mg tablet
500 mg PO BID Qty: 60 0RF
Xarelto 20 mg Tablet
20 mg PO QPM Qty: 0 0RF
Referrals:
Delores Suggs, DO [Family Provider, General]
Activity Restrictions/Additional Instructions:
At granddaughter's request, I sent a prescription for Tylenol to the [facility] and [facility]. CAT scan of the chest, abdomen, and pelvis showed no sign of traumatic abnormality. Return here if worse or other concerns.
Interventions
Interventions:
*Risk Screen - Suicide Last Done: 08/24/24 17:00
*General Assessment Last Done: 08/24/24 14:31
*Neglect/Abuse Screening Last Done: 08/24/24 17:00
*ED- Fall Risk Assessment Last Done: 08/24/24 14:31
*ED COVID-19 Vaccine History Last Done: 08/24/24 14:31
*Nursing Disposition Last Done: 08/24/24 19:18
ED-Musculoskeletal Assessment Last Done: 08/24/24 17:00
Discharge Date and Time
Discharge Date/Time: 08/24/24 19:18
Print Language: NIGERIEN
[2024-08-24] MEDS: ROXICODONE 5 MG PO (17:18)
== END 2024-08-24 19:18 | disposition home or self-care (01) ==
LOC: EMR 14:07
PROVIDERS: EMERGENCY PHYSICIAN Emergency Medicine; FAMILY PHYSICIAN Hospitalist
DX: R10.9 Unspecified abdominal pain (principal); S02.2XXA Fracture of nasal bones, initial encounter for closed fracture; W19.XXXA Unspecified fall, initial encounter; F02.80 Dementia in other diseases classified elsewhere, unspecified severity, without behavioral disturbance, psychotic disturbance, mood disturbance, and anxiety; N18.9 Chronic kidney disease, unspecified; Z87.891 Personal history of nicotine dependence
CPT/HCPCS: 99285; 71250; 74176

== ENCOUNTER 2025-02-18 21:00 | Inpatient (IN) | payer OTHER, SELFPAY ==
[2025-02-18 12:26] VITALS: BP 99/81
[2025-02-18 13:03] LABS: Hematocrit 43.3 % (37.0-47.0); Hemoglobin 13.7 g/dL (12.0-16.0); Mean Corp Hgb Conc. 31.6 g/dL (33.0-37.0); Mean Corpuscular Volume 83.6 fL (81.0-99.0); Nucleated Red Blood Cells % 0 %; Platelet Count 243 10^3/uL (130-400); Red Cell Dist. Width 15.2 % (11.5-14.5)
[2025-02-18 13:13] LABS: INR 1.03; PT 13.6 Sec (11.4-14.6)
[2025-02-18 13:14] LABS: APTT 25.3 Sec (23.4-35.0)
[2025-02-18 13:21] LABS: ALT (SGPT) < 10 U/L (0-35); AST (SGOT) 21 U/L (14-36); Albumin 4.1 g/dl (3.5-5.0); Alkaline Phosphatase 77 U/L (38-126); Blood Urea Nitrogen 17 mg/dl (7-17); Calcium 9.2 mg/dl (8.4-10.2); Carbon Dioxide 28 mmol/L (22-30); Chloride 104 mmol/L (98-107); Glucose 87 mg/dl (70-99); Potassium 4.0 mmol/L (3.5-5.1); Sodium 137 mmol/L (135-145); Total Protein 6.6 g/dl (6.3-8.2); eGFR 51.75
[2025-02-18 16:45] VITALS: BMI 24.1
--- NOTE | 2025-02-18 16:50 | EDRN ---
Dr. Atkins was in to see pt and Dr. Clarke w/ Dr. Atkins just in to see pt as well
[2025-02-18 16:54] VITALS: BP 162/66
--- NOTE | 2025-02-18 16:56 | ED.GENMED ---
History of Present Illness
<Mikey Clarke DO - Last Filed: 02/18/25 18:24>
General
Chief Complaint: DVT/Possible Blood Clot
Time Seen by Provider: 02/18/25 16:09
<Reza Atkins DO, Resident - Last Filed: 02/18/25 20:13>
General
Source: patient and family
Exam Limitations: dementia
Nursing documentation reviewed up to this point in time: agreed with
History of Present Illness
History of Present Illness:
Amee Turner is a 79F w/ PMHx of COPD, Parkinson's, A/fib, TIA, dementia (unspecified), HTN, HLD, CKD3a, and a history of DVT with PE in 2020 and 2021 currently prophylactically treated on Xarelto. She is presenting with a myriad of symptoms.
Per history taken mainly from the patient's daughter the first symptom to appear was right thigh pain, which began approximately 1.5 weeks ago. Location is in the anterior right thigh and radiates to the back of the thigh. This has caused her to
have an antalgic gait. Pain is made worse with movement but not palpation. During this time, the patient's family notes that she has been exhibiting some expressive aphasia and has a harder time orienting than usual. Family started to come to the
emergency room today because the patient started to exhibit some shortness of breath that was worse with exertion that started today. Additional secondary symptoms per include some coughing, abdominal pain, increase in patient's baseline
parkinsonism, and back pain.
ROS: Patient denies headache, visual changes, recent upper respiratory illness, chest pain, pleuritic chest pain, nausea, vomiting, changes in bowel habits, urinary symptoms.
Past History
<Mikey Clarke DO - Last Filed: 02/18/25 18:24>
Past History
ED Past Medical History: COPD, CVA (in 2011, ? TIA in 2018), Hyperthyroidism and Other (PE/DVT's, Alzheimers, Vertigo in 2019)
ED Past Surgical History: Appendectomy, (X 2) and Orthopedic (Cervical spine surgery)
Social History
Tobacco: Former smoker
Alcohol: None
Drug: None
Personal:
Living: assisted living ([facility])
Employment: Retired
Family History
Family History: Other (Noncontributory)
Review of Systems
<Reza Atkins DO, Resident - Last Filed: 02/18/25 20:13>
Review of Systems
Allergies reviewed?: Yes
All Other Systems: ROS reviewed and negative except as documented in HPI and ROS
Phy Exam
<Reza Atkins DO, Resident - Last Filed: 02/18/25 20:13>
Physical Exam
Physical Exam:
General: Elderly, frail, chronically ill-appearing female who does not appear to be in acute distress.
HEENT: Normocephalic, atraumatic, EOMI
CV: Regular rate and rhythm, no murmurs, rubs, gallops.
Respiratory: Clear to auscultation bilaterally, mildly tachypneic.
Abdomen: Soft. Questionably tender to palpation, however upon distraction, tenderness disappears. Voluntary guarding noted.
Neuro: Awake, alert, oriented to person and place. Follows commands. No focal neurologic deficits.
MSK: Mild tenderness to the right thigh. No swelling or color changes.
Psych: Calm, normal affect.
Scores
<Reza Atkins DO, Resident - Last Filed: 02/18/25 20:13>
Heart Failure Risk
Heart Failure Risk Score: Not Applicable
Heart Score for Chest Pain Patients
STEMI patient?: Not applicable
Withdrawal Assessment of Alcohol
Withdrawal Assessment Completed?: Not applicable
Course
<Mikey Clarke DO - Last Filed: 02/18/25 18:24>
Orders/Labs/Results
Orders:
Orders
02/18/25 12:43
Complete Blood Count/With Diff Urgent
Comprehensive Metabolic Panel Urgent
PTT Urgent
Prothrombin Time Urgent
02/18/25 16:56
CT Head W/o Iv Contrast Stat
Comment:
Reason For Exam: Expressive Aphasia
CXR2 [CR Chest - 2 Views ] Stat
Comment:
Reason For Exam: Shortness of Breath
02/18/25 16:59
US Periph Venous LOWER Ext RT Stat
Comment:
Reason For Exam: Thigh Pain, History of DVT
02/18/25 18:21
Urinalysis Reflex To Culture Urgent
Date Specimen was Collected: 02/18/25
Time Specimen was Collected: 18:18
Urine Microscopic Reflex Cult Urgent
Urine Culture Urgent
SHERMAN Source: U
Specimen Description:
Date Specimen was Collected: 02/18/25
Time Specimen was Collected: 18:18
02/18/25 18:23
0.9% Sodium Chloride 1000 ml [Nss] 1,000 ml IV BOLUS
02/18/25 19:33
Bladder Scan- Treatment ONCE
Abnormal Lab Results
02/18/25 02/18/25
12:43 18:21
WBC 10.9 H 10^3/uL
(4.8-10.8)
MCH 26.4 L pg
(27.0-31.0)
MCHC 31.6 L g/dL
(33.0-37.0)
RDW 15.2 H %
(11.5-14.5)
Absolute Neuts (auto) 8.0 H 10^3/uL
(1.4-6.5)
Absolute Monos (auto) 0.8 H 10^3/uL
(0.1-0.6)
Lymphocytes % 15.8 L %
(20.5-51.1)
Creatinine 1.1 H mg/dL
(0.6-1.0)
Ur Occult Blood Reflex 1+ A
(Negative)
Leukocyte Esterase Rfl 3+ A
(Negative)
Urine WBC (Reflex) 11-15 A /HPF
(0-5)
Urine Bacteria (Reflex) Few A
(Negative)
Urine Glucose 2+ A
(Negative)
Urine Albumin (Reflex) 1+ A
(Neg - Trace)
02/18/25 12:43
02/18/25 12:43
Vital Signs
Initial and Last Documented VS:
Initial Vital Signs
Temp Pulse Resp BP Pulse Ox
97.5 F 82 18 99/81 93
02/18/25 12:26 02/18/25 12:26 02/18/25 12:26 02/18/25 12:26 02/18/25 12:26
Last Documented Vital Signs
Temp Pulse Resp BP Pulse Ox
98.7 F 67 16 144/68 95
02/18/25 18:15 02/18/25 18:15 02/18/25 18:15 02/18/25 18:15 02/18/25 18:15
<Reza Atkins DO, Resident - Last Filed: 02/18/25 20:13>
Orders/Labs/Results
Orders:
Orders
02/18/25 12:43
Complete Blood Count/With Diff Urgent
Comprehensive Metabolic Panel Urgent
PTT Urgent
Prothrombin Time Urgent
02/18/25 16:56
CT Head W/o Iv Contrast Stat
Comment:
Reason For Exam: Expressive Aphasia
CXR2 [CR Chest - 2 Views ] Stat
Comment:
Reason For Exam: Shortness of Breath
02/18/25 16:59
US Periph Venous LOWER Ext RT Stat
Comment:
Reason For Exam: Thigh Pain, History of DVT
02/18/25 18:21
Urinalysis Reflex To Culture Urgent
Date Specimen was Collected: 02/18/25
Time Specimen was Collected: 18:18
Urine Microscopic Reflex Cult Urgent
Urine Culture Urgent
SHERMAN Source: U
Specimen Description:
Date Specimen was Collected: 02/18/25
Time Specimen was Collected: 18:18
02/18/25 18:23
0.9% Sodium Chloride 1000 ml [Nss] 1,000 ml IV BOLUS
02/18/25 19:33
Bladder Scan- Treatment ONCE
Abnormal Lab Results
02/18/25 02/18/25
12:43 18:21
WBC 10.9 H 10^3/uL
(4.8-10.8)
MCH 26.4 L pg
(27.0-31.0)
MCHC 31.6 L g/dL
(33.0-37.0)
RDW 15.2 H %
(11.5-14.5)
Absolute Neuts (auto) 8.0 H 10^3/uL
(1.4-6.5)
Absolute Monos (auto) 0.8 H 10^3/uL
(0.1-0.6)
Lymphocytes % 15.8 L %
(20.5-51.1)
Creatinine 1.1 H mg/dL
(0.6-1.0)
Ur Occult Blood Reflex 1+ A
(Negative)
Leukocyte Esterase Rfl 3+ A
(Negative)
Urine WBC (Reflex) 11-15 A /HPF
(0-5)
Urine Bacteria (Reflex) Few A
(Negative)
Urine Glucose 2+ A
(Negative)
Urine Albumin (Reflex) 1+ A
(Neg - Trace)
02/18/25 12:43
02/18/25 12:43
Vital Signs
Initial and Last Documented VS:
Initial Vital Signs
Temp Pulse Resp BP Pulse Ox
97.5 F 82 18 99/81 93
02/18/25 12:26 02/18/25 12:26 02/18/25 12:26 02/18/25 12:26 02/18/25 12:26
Last Documented Vital Signs
Temp Pulse Resp BP Pulse Ox
98.7 F 67 16 144/68 95
02/18/25 18:15 02/18/25 18:15 02/18/25 18:15 02/18/25 18:15 02/18/25 18:15
<Reza Atkins DO, Resident - Last Filed: 02/18/25 20:13>
MDM/Problems Addressed
Differential Diagnosis Includes:
DVT, PE, Pneumonia, Viral Illness, UTI, CVA, TIA
MDM/Problems Addressed:
79 F w/ PMHx Dementia, HLD, sz d/o, and DVT with PE in 2020 and 2021 who presented with thigh pain x 1 week and more recently EVANGELISTA and expressive aphasia per the family, over the past day. Family concerned about DVT/PE however, patient has been on
Xarelto for 3 years. US demonstrates no evidence of DVT making PE very unlikely. CXR is negative for acute process. CT of the head is negative for acute intracranial abnormalities. UA shows some signs of possible UTI. Patient to be admitted for
observation in the setting of acute on chronic altered mentation. Hospitalist notified.
<Mikey Clarke DO - Last Filed: 02/18/25 18:24>
*Pulse Oximetry
SaO2: 93
Oxygen Mode of Delivery: Room air
<Reza Atkins DO, Resident - Last Filed: 02/18/25 20:13>
*Pulse Oximetry
Patient hypoxic: no
*Critical Care Note
Total Time (30-74mins, 75-104mins- exclusive of procedures): Not Applicable
ED Attending Note
<Mikey Clarke DO - Last Filed: 02/18/25 18:24>
ED Attending Note
Patient seen and examined by attending physician: Yes
I performed a history and physical exam of patient and discussed management with resident, I reviewed resident's note and agree with documented findings and plan of care.: Yes
ED Attending Note:
I have seen and evaluated the patient with a [id number] encounter. I have spoken to the resident and involved in the medical history, the physical exam, medical decision making.
Evaluation and management service: agree unless noted differently below.
Results interpretation: agree unless noted differently below.
Focused HPI: 79-year-old female presenting with multiple complaints. Patient is mostly concerned about right calf pain which is similar presentation to her prior DVT regardless of her being compliant with her Xarelto. Family at bedside noted that
she seemed more confused and short of breath recently. Family also concerned that the patient has had intermittent expressive aphasia since yesterday
Physical exam: Sitting in bed comfortably. Very mild suprapubic tenderness. No rebound. No focal neurodeficits. Right calf mildly tender but no skin changes or edema noted
Medical Decision Making: Given her prior history, will obtain ultrasound to rule out DVT. Given the shortness of breath, will obtain chest x-ray. Given the suprapubic tenderness, will obtain urinalysis. Given expressive aphasia, will obtain CT
head. The fact that the patient has had intermittent expressive aphasia since yesterday, will ultimately admit. She is not a TNK candidate if this were to be a stroke given the fact that she is on anticoagulation.
-
Portions of this chart may have been created with voice recognition software.� Occasional wrong word or��sound alike� substitutions may have occurred due to the inherent limitations of voice recognition software.
Discharge Plan
Departure
Patient Disposition: Admit
Date of Disposition: 02/18/25
Time of Disposition: 19:36
Admit to: Med/Surg
Admit to doctor: Dr. Buck
Presentation/result/management discussed w/ accepting MD/DO: Hospitalist
Patient with high blood pressure during this ER visit?: No
Condition: Fair
Discharge Problem:
Acute on chronic alteration in mental status, Expressive aphasia
Prescriptions:
No Action
atorvastatin 20 mg tablet
20 mg PO QPM
famotidine [Pepcid] 20 mg Tablet
20 mg PO DAILY@1200
carbidopa-levodopa 25-100 mg tablet
2 tab PO TID@0800,1200,1700
aspirin 81 mg Tablet,Delayed Release (Dr/Ec)
81 mg PO DAILY
prednisone 5 mg Tablet
5 mg PO DAILY
levetiracetam [Keppra] 500 mg tablet
500 mg PO BID
gabapentin 100 mg capsule
100 mg PO TID
Xarelto 20 mg tablet
20 mg PO DAILY
Referrals:
Delores Suggs, DO [Non-Admitting Privileges, General]
Interventions
Interventions:
*General Assessment Last Done: 02/18/25 16:45
*Neglect/Abuse Screening Last Done: 02/18/25 12:28
*ED COVID-19 Vaccine History Last Done: 02/18/25 16:45
*ED Influenza Vaccine History Last Done: 02/18/25 16:45
[facility] Fall Risk Assessment Tool Last Done: 02/18/25 16:45
*Risk Screen - Suicide (C-SSRS) Last Done: 02/18/25 12:28
ED- Cardiac Assessment Last Done: 02/18/25 16:49
ED- Pulmonary Assessment Last Done: 02/18/25 16:49
ED-Peripheral Vascular Assessment Last Done: 02/18/25 16:49
ED-Skin Assessment Last Done: 02/18/25 16:49
Discharge Date and Time
Print Language: CROATIAN
[2025-02-18 17:00] VITALS: BP 129/53
--- NOTE | 2025-02-18 17:58 | EDRN ---
Pt in [place] attempting urine spec w/ granddaughter at this time.
[2025-02-18 18:10] VITALS: BP 88/65
[2025-02-18 18:15] VITALS: BP 144/68
--- NOTE | 2025-02-18 18:20 | EDRN ---
Dr. Clarke informed at this time that granddaughter is concerned about pt's BP and pt per granddaughter asking for IV fluids
[2025-02-18 18:31] LABS: Urine Character Clear (Clear)
[2025-02-18] MEDS: NSS 1000 IV (18:32)
[2025-02-18 19:06] LABS: Urine Red Blood Cell 0-2 /HPF (0-2); Urine Squamous Cell 0-2 /LPF (Few); Urine Urothelial Cell 0-2 /LPF (FEW)
--- NOTE | 2025-02-18 20:13 | HPS.HSE ---
Family Physician
-
Family Physician: Kt Morales
Chief Complaint
-
expressive aphasia
History of Present Illness
79F woman with PMHx of
COPD,
Parkinson's,
A/fib,
TIA,
dementia (unspecified),
essential HTN,
HLD,
CKD3a,
history of DVT with PE in 2020 and 2021
currently prophylactically treated on Xarelto.
presents with many symptoms: right thigh pain, which began approximately 1.5 weeks ago. antalgic gait. Pain made worse with movement but not palpation. expressive aphasia and has a harder time orienting than usual. Shortness of breath that was
worse with exertion that started today. Additional secondary symptoms per include some coughing, abdominal pain, increase in patient's baseline parkinsonism, and back pain. Comfortable at the time of my interview. has had 3 UTis in the past 6
months, which is a new issue for her.
Medical History
Past Medical History
Past Medical History: Reports Other
Additional Past Medical History:
hemoglobinopathies
Hx of pulmonary embolus
Centrilobular emphysema
Paroxysmal a-fib
istory of CVA (cerebrovascular accident), stroke 2010 and 2017
History of DVT (deep vein thrombosis)
Dementia
Chronic kidney disease (CKD) stage G3b/A1,
COVID-19
Hyperthyroidism
Cervical radiculopathy
Hyperlipidemia
Parkinson's disease 03/2024
neuropathy 03/2024
TIA 06/18/2024
Anterior Cervical fusion Feb 01/2021
R eye cataract surgery
Hospitalization [facility] - Shingles 11/04/2018
Hospitalization [facility] DVT 11/2020
Hospitalization [facility]- Pulmonary Embolism 12/04/2021
[facility]ospitalization [facility]- COVID-19, COPD exacerbation 02/27-03/08/2024
Hospitalization [facility]-TIA's 06/2024
Hospitalization [facility]-TIA 06/18-
Past Surgical History: Reports Other
Additional Past Surgical History:
See above
Social History
Tobacco: Non-smoker
Alcohol: None
Drug: None
Living: With Family
Employment: Retired
Family History
Family History: Not pertinent
Allergies / Home Medications
Allergies reflects when Allergies were last updated in [facility].
Home Medications with original date entered in [facility]
Allergy/Medication List:
Allergies
Allergy/AdvReac Type Severity Reaction Status Date / Time
No Known Allergies Allergy Verified 02/18/25 12:29
Home Medications
atorvastatin 20 mg tablet 20 mg PO QPM High Cholesterol 12/07/22
famotidine 20 mg tablet (Pepcid) 20 mg PO DAILY@1200 Gastrointestinal Issue 04/07/23
carbidopa 25 mg-levodopa 100 mg tablet 2 tab PO TID@0800,1200,1700 parkinson's disease 06/18/24
aspirin 81 mg tablet,delayed release 81 mg PO DAILY Blood Clot Prevention/Tx 07/19/24
gabapentin 100 mg capsule 100 mg PO TID Neurological Condition 02/18/25
levetiracetam 500 mg tablet (Keppra) 500 mg PO BID Seizures 02/18/25
prednisone 5 mg tablet 5 mg PO DAILY 02/18/25
rivaroxaban 20 mg tablet (Xarelto) 20 mg PO DAILY DVT/PE 02/18/25
Review of Systems
-
History Source: Patient
A 12 point ROS was completed and negative except as noted: Yes
Physical Exam
Vital Signs
Vital Signs
Temp Pulse Resp BP Pulse Ox
98.7 F 67 16 144/68 95
02/18/25 18:15 02/18/25 18:15 02/18/25 18:15 02/18/25 18:15 02/18/25 18:15
Physical Exam
General: Well Developed, Well Nourished, No Apparent Distress, Comfortable and Conversant
HEENT: NormoCephalic, Moist mucous membranes, Nose Appears Normal and Ears Appear Normal
Respiratory: Clear
Cardiac: S1/S2 and Regular Rhythm
GI: Soft, Non Tender and Non Distended
Musculoskeletal: No Clubbing, No Cyanosis and No Edema
Skin: Warm and Dry; No Rash
Neuro: Awake and Alert
Psych: Calm
Laboratory Results
-
02/18/25 12:43
02/18/25 12:43
Laboratory Results
PT 13.6 Sec (11.4-14.6) 02/18/25 12:43
INR 1.03 02/18/25 12:43
APTT 25.3 Sec (23.4-35.0) 02/18/25 12:43
Total Bilirubin 1.0 mg/dl (0.2-1.3) 02/18/25 12:43
AST 21 U/L (14-36) 02/18/25 12:43
ALT < 10 U/L (0-35) 02/18/25 12:43
Alkaline Phosphatase 77 U/L (38-126) 02/18/25 12:43
Data Reviewed
-
Lab Data: Labs Reviewed by me
Impression/Plan
-
IMPRESSION:
79 woman with myriad symptoms and probable UTI
UA shows: OB, LE, WBC, [place]
PLAN:
1. Probable UTI
IV abx - ceftriaxone
Follow culture results
2. Several recent UTis
Check post void residual
3. Insomnia - patient requested melatonin
4. Chronic kidney disease (CKD) stage G3b/A1, - appears to be at baseline
5. Hyperthyroidism - check TSH
Code: DNR (reviewed with patient and daughter at bedside)
VCD for DVTp
[2025-02-18 21:14] VITALS: BP 140/59
[2025-02-19 01:01] VITALS: BP 149/65; BMI 21.2
--- NOTE | 2025-02-19 01:15 | PTCARENOTE ---
Pt. admitted from E[facility]D., awake, alert, forgetful, vs stable, pt. ambulated from stretcher to bed assist x 1, bed alarm intact, call story within reach.
[2025-02-19] MEDS: NEURONTIN 100 MG PO ×4 (01:31→21:09)
[2025-02-19] MEDS: STERILE WATER FOR INJECTION 10 ML IV (01:31)
[2025-02-19] MEDS: ROCEPHIN 1000 MG IV (01:31)
[2025-02-19] MEDS: TYLENOL 650 MG PO (01:32)
[2025-02-19 06:57] LABS: Hematocrit 39.8 % (37.0-47.0); Hemoglobin 12.8 g/dL (12.0-16.0); Mean Corp Hgb Conc. 32.2 g/dL (33.0-37.0); Mean Corpuscular Volume 82.7 fL (81.0-99.0); Platelet Count 220 10^3/uL (130-400); Red Cell Dist. Width 15.2 % (11.5-14.5)
[2025-02-19] MEDS: ASPIR LOW (ENTERIC COATED) 81 MG PO (07:26)
[2025-02-19] MEDS: XARELTO 20 MG PO (07:26)
[2025-02-19] MEDS: KEPPRA 500 MG PO ×2 (07:32→21:09)
[2025-02-19] MEDS: DELTASONE 5 MG PO (07:39)
[2025-02-19] MEDS: SINEMET 25-100 2 TABLET PO ×3 (07:40→18:17)
[2025-02-19 07:42] VITALS: BP 129/86
[2025-02-19 08:07] LABS: Blood Urea Nitrogen 17 mg/dl (7-17); Calcium 8.4 mg/dl (8.4-10.2); Carbon Dioxide 26 mmol/L (22-30); Chloride 108 mmol/L (98-107); Estimated Creatinine Clearance 32 ml/min; Glucose 69 mg/dl (70-99); Potassium 4.4 mmol/L (3.5-5.1); Sodium 139 mmol/L (135-145); eGFR 51.75
[2025-02-19 09:33] VITALS: BP 150/65; PULSE 62; O2SAT 92
--- NOTE | 2025-02-19 09:33 | W.PN.HOSP.TC ---
Today's Communication/Plan
-
IV antibiotics for UTI
PT/OT for gait abnormalities
Consider increasing Sinemet for worsening tremors, will d/w family
Assessment / Plan
Assessment / Plan
79 woman with Parkinson disease and dementia, A-fib, history of TIA, CKD, hyperthyroidism, p/w right thigh pain, gait issues, expressive aphasia, shortness of breath, found to have UTI.
UTI
UA consistent with UTI. Patient reports frequent UTIs this year.
Empiric IV abx - ceftriaxone
Follow blood and urine culture results
Ambulatory dysfunction
Parkinson's disease with dementia
Patient reporting expressive aphasia, gait issues
Worsening tremors
head CT no acute abnormality
Continue Sinemet, gabpentin, will discuss with family if this can be increased
Outpatient neuro follow-up
PT/OT/ST
Chronic kidney disease (CKD) stage G3b/A1
appears to be at baseline
hyperthyroidism
Not on any meds for this
TSH pending
Afib
on xarelto
rate controlled
h/o TIA
on aspirin - will clarify as also on xarelto
cont statin
h/o DVT/PE 2021
still on xarelto
COPD
Chronic steroid use
on prednisone
Crackles on exam, no active wheeze
CXR reviewed, no acute abnormality
IS
DVT PPx
xarelto
Anticipated Discharge: 24 - 48 hours
Subjective/Interval History
-
Date of Service: February 19, 2025
Patient feels cold, shaky. I updated her on plan of care
Objective Data
-
Labs:
Laboratory Results
02/19/25
06:31
WBC 7.5
Hgb 12.8
Hct 39.8
Plt Count 220
Sodium 139
Potassium 4.4
Chloride 108 H
Carbon Dioxide 26
BUN 17
Creatinine 1.1 H
Glucose 69 L
Calcium 8.4
Vital Signs:
Vital Signs
Temp Pulse Resp BP Pulse Ox
98.5 F 82 18 129/86 96
02/19/25 07:42 02/19/25 07:42 02/19/25 07:42 02/19/25 07:42 02/19/25 07:42
I&O
02/18/25 02/19/25 02/20/25
06:59 06:59 06:59
Intake Total 120 / 120
Balance 120 / 120
Review of Systems
-
Unable to obtain full review of systems at this time due to: Dementia
History Source: Patient
All other systems: Reviewed and negative
Physical Exam
-
General: No Apparent Distress
HEENT: Moist Mucous Membranes, Anicteric and PERRLA
Respiratory: Rales; Negative Wheezes or Rhonchi
Cardiac: Regular Rhythm and S1/S2; Negative Murmur, Rub or Gallop
GI: Soft, Nontender, Nondistended and Normal Bowel Sounds
Musculoskeletal: No Edema
Skin: Warm and Dry; Negative Rash, Ulcers or Lesions
Neuro: Awake, AO x 3 and Tremors (Increased tremors at rest)
Hematologic / Lymphatic: No Lymphadenopathy
Psych: Calm and Apparent Dementia
Data Reviewed
-
CT Scan: Report Reviewed by me
Ultrasound: Report Reviewed by me
Labs: Labs Reviewed by me
[2025-02-19 11:00] LABS: TSH 0.16 uIU/ml (0.47-4.68)
[2025-02-19] MEDS: PEPCID 20 MG PO (13:33)
[2025-02-19 15:09] VITALS: BP 130/64
--- NOTE | 2025-02-19 15:17 | PTOTSP ---
Speech Therapy Evaluation
Pt at an increased risk of aspiration given PMH COPD, PD, and dementia compounded by metabolic encephalopathy and suspected UTI. CXR negative for PNA, WBC WNL, and pt is on room air. At bedside, pt demonstrated functional oropharyngeal swallow
function. Pt expressed concerns with speech, specifically with word finding. In convesation, pt had some word finding, evidenced by hesitations, pauses, and fillers. A speech and language evaluation is not indicated given present metabolic
encephalopathy (which is likely further impacting cognitive-linguistic skills). Pt can pursue outpatient LOG RAFT WORKER for comprehensive cognitive-communication evaluation.�
Recommend:�
1. Regular solids and thin liquids
2. Medication as best tolerated
3. Standard aspiration precautions
4. LOG RAFT WORKER to s/o
--- NOTE | 2025-02-19 15:29 | CM ---
project management manager reviewed patient's chart and met with patient and spoke with patient's granddaughter by phone, patient lives with her spouse in a one story home, patient is independent with adl's and ambulation. Patient was at [facility] but family
removed her for facility.
PCP: Dr. Kt Morales
Pharmacy: [facility] in [place]
Plan: home with spouse when stable,
[2025-02-19] MEDS: LIPITOR 20 MG PO (18:23)
[2025-02-19 23:13] VITALS: BP 151/67
[2025-02-20] MEDS: ROCEPHIN 1000 MG IV (01:17)
[2025-02-20] MEDS: STERILE WATER FOR INJECTION 10 ML IV (01:18)
[2025-02-20] MEDS: FLUSH (NSS) 1 FLUSH IV (01:20)
[2025-02-20 06:56] LABS: Blood Urea Nitrogen 16 mg/dl (7-17); Calcium 8.2 mg/dl (8.4-10.2); Carbon Dioxide 26 mmol/L (22-30); Chloride 107 mmol/L (98-107); Estimated Creatinine Clearance 32 ml/min; Glucose 79 mg/dl (70-99); Potassium 4.4 mmol/L (3.5-5.1); Sodium 138 mmol/L (135-145); eGFR 51.75
[2025-02-20 07:01] LABS: Hematocrit 40.6 % (37.0-47.0); Hemoglobin 12.9 g/dL (12.0-16.0); Mean Corp Hgb Conc. 31.8 g/dL (33.0-37.0); Mean Corpuscular Volume 82.9 fL (81.0-99.0); Nucleated Red Blood Cells % 0 %; Platelet Count 229 10^3/uL (130-400); Red Cell Dist. Width 15.2 % (11.5-14.5)
[2025-02-20 07:15] VITALS: BP 144/53
[2025-02-20] MEDS: SINEMET 25-100 2 TABLET PO ×3 (09:57→17:44)
[2025-02-20] MEDS: ASPIR LOW (ENTERIC COATED) 81 MG PO (09:57)
[2025-02-20] MEDS: NEURONTIN 100 MG PO (09:57)
[2025-02-20] MEDS: DELTASONE 5 MG PO (09:57)
[2025-02-20] MEDS: XARELTO 20 MG PO (09:57)
[2025-02-20] MEDS: KEPPRA 500 MG PO ×2 (09:57→21:00)
[2025-02-20 10:09] VITALS: BP 121/86
[2025-02-20] MEDS: PEPCID 20 MG PO (13:47)
[2025-02-20 15:10] VITALS: BP 134/52
--- NOTE | 2025-02-20 15:59 | W.PN.HOSP.TC ---
Today's Communication/Plan
-
Increase gabapentin
XR hip and back
dispo will be [facility]
cont empiric abx change to oral liquid on dc
Assessment / Plan
Assessment / Plan
79F with Parkinson disease and dementia, A-fib, history of TIA, CKD, subclinical hyperthyroidism, p/w right thigh pain, gait issues, expressive aphasia, shortness of breath, found to have UTI.
UTI
UA consistent with UTI. Patient reports frequent UTIs this year.
Empiric IV abx - ceftriaxone
Follow blood and urine culture results - no growth
change to oral liquid antibiotic on discharge to complete course
Ambulatory dysfunction
Parkinson's disease with dementia
Patient reporting expressive aphasia, gait issues
Worsening tremors
head CT no acute abnormality
Continue Sinemet, gabpentin.
Outpatient neuro follow-up for possible dose adjustment of sinement. D/w family.
PT/OT/ST
Per ST eval: 'At bedside, pt demonstrated functional oropharyngeal swallow function. Pt expressed concerns with speech, specifically with word finding. In conversation, pt had some word finding, evidenced by hesitations, pauses, and fillers. A
speech and language evaluation is not indicated given present metabolic encephalopathy (which is likely further impacting cognitive-linguistic skills). Pt can pursue outpatient RETAIL LOSS PREVENTION INVESTIGATOR for comprehensive cognitive-communication evaluation.'
Per PT eval: Patient walked 30 feet x 2 with walker and minimum assist. ' Patient did not report any pain during session, however noted unsteadiness and weakness specifically in RLE with ambulation causing antalgic gait pattern.... Unsteady,
impulsive, patient denied pain however RLE mild buckle/unsteadiness causing antalgic gait. Patient fatigued with short distance ambulation.'
Per OT eval: 'Patient is ambulating around her room with supervision, no AD. She has pain in her R thigh and there is a limp, overall appears steady this session.'
R thigh pain
noted to be sudden onset and they report pt usually describes it as a horizontal band like pain from mid post thigh to ant thigh. To me she described vertical pain top to bottom anterior thigh.
per history from family, pt is limping and dragging R leg. OT also noted limping.
Pt reports pain worse with standing, also with sitting upright.
ddx includes muscle strain (sartorius?), sciatica, lumbar radiculopathy, OA R hip with referred pain, OA knee (unlikely, knee exam WNL). Considered hematoma but unlikely given no bruising and soft, nontender thigh.
RLE doppler negative for DVT
FROM on exam in bed without eliciting pain (family notes pt stoic, minimizes pain)
check XR hip and lumbar spine
increase gabapentin
Chronic kidney disease (CKD) stage G3b/A1
appears to be at baseline
Subclinical hyperthyroidism
Not on any meds for this, patient follows with an log buyer.
TSH 0.16, discussed with family, this is chronic
Afib
on xarelto
rate controlled
h/o TIA
on aspirin - will clarify as also on xarelto
cont statin
h/o DVT/PE 2021
still on xarelto
COPD
Chronic steroid use
on prednisone
Crackles on exam, no active wheeze
CXR reviewed, no acute abnormality
IS
DVT PPx
xarelto
Dispo: [facility]
Anticipated Discharge: Within 24 hours
Subjective/Interval History
-
Date of Service: February 20, 2025
Patient still complaining of pain in right thigh. Returned to bedside to discuss with granddaughter, updated on findings and plan of care, answered all questions as able. Patient not going to be going to SNF, she states they do not trust any local
SNF, she will be going home on discharge.
Objective Data
-
Labs:
Laboratory Results
02/20/25
05:53
WBC 7.0
Hgb 12.9
Hct 40.6
Plt Count 229
Sodium 138
Potassium 4.4
Chloride 107
Carbon Dioxide 26
BUN 16
Creatinine 1.1 H
Glucose 79
Calcium 8.2 L
Vital Signs:
Vital Signs
Temp Pulse Resp BP Pulse Ox
98.5 F 65 16 144/53 94
02/20/25 07:15 02/20/25 07:15 02/20/25 07:15 02/20/25 07:15 02/20/25 07:15
I&O
02/19/25 02/20/25 02/21/25
06:59 06:59 06:59
Intake Total 570 / 570
Balance 570 / 570
Review of Systems
-
Unable to obtain full review of systems at this time due to: Dementia
History Source: Patient
All other systems: Reviewed and negative
Physical Exam
-
General: No Apparent Distress
HEENT: Moist Mucous Membranes, Anicteric and PERRLA
Respiratory: Rales; Negative Wheezes or Rhonchi
Cardiac: Regular Rhythm and S1/S2; Negative Murmur, Rub or Gallop
GI: Soft, Nontender, Nondistended and Normal Bowel Sounds
Musculoskeletal: No Edema and Other (Pain not elicited with adduction/abduction of right hip with extension/flexion of right knee, or with palpation of groin and knee and thigh.)
Skin: Warm and Dry; Negative Rash, Ulcers or Lesions
Neuro: Awake, Alert, Oriented (2-3) and Tremors (Increased tremors at rest)
Hematologic / Lymphatic: No Lymphadenopathy
Psych: Calm and Apparent Dementia
Data Reviewed
-
CT Scan: Report Reviewed by me, Discussed with Patient and Discussed with Family
Ultrasound: Report Reviewed by me, Discussed with Patient and Discussed with Family
Labs: Labs Reviewed by me, Discussed with Patient and Discussed with Family
[2025-02-20] MEDS: LIPITOR 20 MG PO (17:43)
[2025-02-20] MEDS: NEURONTIN 200 MG PO ×2 (17:44→21:13)
[2025-02-20 23:32] VITALS: BP 166/70
[2025-02-21] MEDS: ROCEPHIN 1000 MG IV (00:19)
[2025-02-21] MEDS: STERILE WATER FOR INJECTION 10 ML IV (00:19)
[2025-02-21 06:00] VITALS: BP 143/58
[2025-02-21 07:54] LABS: Hematocrit 40.7 % (37.0-47.0); Hemoglobin 12.8 g/dL (12.0-16.0); Mean Corp Hgb Conc. 31.4 g/dL (33.0-37.0); Mean Corpuscular Volume 83.1 fL (81.0-99.0); Nucleated Red Blood Cells % 0 %; Platelet Count 215 10^3/uL (130-400); Red Cell Dist. Width 15.2 % (11.5-14.5)
[2025-02-21 08:55] LABS: Blood Urea Nitrogen 14 mg/dl (7-17); Calcium 8.4 mg/dl (8.4-10.2); Carbon Dioxide 25 mmol/L (22-30); Chloride 108 mmol/L (98-107); Estimated Creatinine Clearance 40 ml/min; Glucose 74 mg/dl (70-99); Potassium 4.5 mmol/L (3.5-5.1); Sodium 139 mmol/L (135-145); eGFR > 60.00
--- NOTE | 2025-02-21 09:26 | W.PN.HOSP.TC ---
Today's Communication/Plan
-
dc
Assessment / Plan
Assessment / Plan
Physical Exam
-
General: No Apparent Distress
HEENT: Moist Mucous Membranes, Anicteric and PERRLA
Respiratory: Rales; Negative Wheezes or Rhonchi
Cardiac: Regular Rhythm and S1/S2; Negative Murmur, Rub or Gallop
GI: Soft, Nontender, Nondistended and Normal Bowel Sounds
Musculoskeletal: No Edema and Other (Pain not elicited with adduction/abduction of right hip with extension/flexion of right knee, or with palpation of groin and knee and thigh.)
Skin: Warm and Dry; Negative Rash, Ulcers or Lesions
Neuro: Awake, Alert, Oriented to self and surrounings.
Hematologic / Lymphatic: No Lymphadenopathy
Psych: Calm and Apparent Dementia
79F with Parkinson disease and dementia, A-fib, history of TIA, CKD, subclinical hyperthyroidism, p/w right thigh pain, gait issues, expressive aphasia, shortness of breath, found to have UTI.
UTI
UA consistent with UTI. Patient reports frequent UTIs this year.
Empiric IV abx - ceftriaxone
Negative blood and urine culture results - no growth
change to oral liquid antibiotic on discharge to complete course
Ambulatory dysfunction
Parkinson's disease with dementia
Patient reporting expressive aphasia, gait issues
Worsening tremors
head CT no acute abnormality
Continue Sinemet, gabpentin.
Outpatient neuro follow-up for possible dose adjustment of sinement. D/w family.
PT/OT/ST
Per ST eval: 'At bedside, pt demonstrated functional oropharyngeal swallow function. Pt expressed concerns with speech, specifically with word finding. In conversation, pt had some word finding, evidenced by hesitations, pauses, and fillers. A
speech and language evaluation is not indicated given present metabolic encephalopathy (which is likely further impacting cognitive-linguistic skills). Pt can pursue outpatient INSPECTOR TIMERS for comprehensive cognitive-communication evaluation.'
Per PT eval: Patient walked 30 feet x 2 with walker and minimum assist. ' Patient did not report any pain during session, however noted unsteadiness and weakness specifically in RLE with ambulation causing antalgic gait pattern.... Unsteady,
impulsive, patient denied pain however RLE mild buckle/unsteadiness causing antalgic gait. Patient fatigued with short distance ambulation.'
Per OT eval: 'Patient is ambulating around her room with supervision, no AD. She has pain in her R thigh and there is a limp, overall appears steady this session.'
R thigh pain
noted to be sudden onset and they report pt usually describes it as a horizontal band like pain from mid post thigh to ant thigh. To me she described vertical pain top to bottom anterior thigh.
per history from family, pt is limping and dragging R leg. OT also noted limping.
Pt reports pain worse with standing, also with sitting upright.
ddx includes muscle strain (sartorius?), sciatica, lumbar radiculopathy, OA R hip with referred pain, OA knee (unlikely, knee exam WNL). Considered hematoma but unlikely given no bruising and soft, nontender thigh.
RLE doppler negative for DVT
FROM on exam in bed without eliciting pain (family notes pt stoic, minimizes pain)
check XR hip and lumbar spine
increase gabapentin
Chronic kidney disease (CKD) stage G3b/A1
appears to be at baseline
Subclinical hyperthyroidism
Not on any meds for this, patient follows with an spot checker.
TSH 0.16, discussed with family, this is chronic
Afib
on xarelto
rate controlled
h/o TIA
on aspirin - will clarify as also on xarelto
cont statin
h/o DVT/PE 2021
still on xarelto
COPD
Chronic steroid use
on prednisone
Crackles on exam, no active wheeze
CXR reviewed, no acute abnormality
IS
DVT PPx
xarelto
Total discharge time spent to see the patient, examine the patient, review data and lab results, discuss discharge plan with patient, nursing staff around 65 minutes
Anticipated Discharge: Today
Subjective/Interval History
-
Date of Service: February 21, 2025
No chest pain
No sob
Objective Data
-
Labs:
Laboratory Results
02/21/25
07:22
WBC 6.6
Hgb 12.8
Hct 40.7
Plt Count 215
Sodium 139
Potassium 4.5
Chloride 108 H
Carbon Dioxide 25
BUN 14
Creatinine 0.9
Glucose 74
Calcium 8.4
Vital Signs:
Vital Signs
Temp Pulse Resp BP Pulse Ox
97.7 F 61 16 143/58 93
02/21/25 06:00 02/21/25 06:00 02/21/25 06:00 02/21/25 06:00 02/21/25 06:00
I&O
02/20/25 02/21/25 02/22/25
06:59 06:59 06:59
Intake Total 570 / 570 600 / 600
Balance 570 / 570 600 / 600
[2025-02-21] MEDS: DELTASONE 5 MG PO (09:42)
[2025-02-21] MEDS: NEURONTIN 200 MG PO (09:43)
[2025-02-21] MEDS: XARELTO 20 MG PO (09:43)
[2025-02-21] MEDS: ASPIR LOW (ENTERIC COATED) 81 MG PO (09:43)
[2025-02-21] MEDS: SINEMET 25-100 2 TABLET PO ×2 (09:43→12:46)
[2025-02-21] MEDS: KEPPRA 500 MG PO (09:43)
[2025-02-21 11:00] VITALS: BP 108/61
--- NOTE | 2025-02-21 11:06 | CM ---
CM reviewed chart, patient seen bedside, for d.c today.
Patient confirms transport home from .
IMM verbally reviewed, provided with copy, placed in chart.
Patient agreeable to [facility] roughly one week, referral to [facility].
CM will continue to follow.
Plan; home with , referral to [facility]
[2025-02-21] MEDS: PEPCID 20 MG PO (12:46)
--- NOTE | 2025-02-21 13:55 | W.DCSUMMARY ---
Discharge Summary
Discharge Data
Date of Admission: 02/18/25
Date of Discharge: 02/21/25
-
Pending Results: No
Hospital Course
79 years old female presented with multiple symptoms included right thigh pain for more than a week, mild expressive aphasia with difficulty orienting than usual, shortness of breath, coughing, abdominal pain, increase in patient's baseline
parkinsonism with back pain. She did not have fever. Was noted to have mild leukocytosis. Urine test was positive for leukocyte esterase, white blood cells, few bacteria. HIDA scan did not show acute findings. Patient has underlying Parkinson
disease with dementia. Family reported that similar complaints were consistent with a prior urinary tract infection. Patient was started on empiric intravenous Rocephin. Blood and urine culture subsequently did not show any growth. Right lower
extremity ultrasound did not show deep venous thrombosis. Imaging studies of the hip and lumbar spine showed degenerative joint disease. Patient did not have further complaints. She did not have right hip pain in the hospital. She remained
hemodynamically stable. Upon discussion with family, decided to treat as presumed urinary tract infection for total of 7 days. She was seen by speech therapy and recommended to continue regular diet with thin liquids. Physical therapy evaluated
the patient. Family wanted home care services. Patient was discharged in a stable condition.
Discharge Plan
-
Patient Disposition: Home with Home Care
Discharge Diagnosis/Procedures: Presumed UTI. You were given IV antibiotic. Blood and urine culture did not show any growth. Finish the course of antibiotic at home.
Ambulatory dysfunction
Diet: As tolerated
Referrals:
Kt Morales DO [Family Provider, Family Practice] - in one to two weeks
Prescriptions:
New
cephalexin 250 mg/5 mL suspension for reconstitution
500 mg PO TID 4 Days Qty: 120 0RF
Continued
atorvastatin 20 mg tablet
20 mg PO QPM
famotidine [Pepcid] 20 mg Tablet
20 mg PO DAILY@1200
carbidopa-levodopa 25-100 mg tablet
2 tab PO TID@0800,1200,1700
aspirin 81 mg Tablet,Delayed Release (Dr/Ec)
81 mg PO DAILY
prednisone 5 mg Tablet
5 mg PO DAILY
levetiracetam [Keppra] 500 mg tablet
500 mg PO BID
gabapentin 100 mg capsule
100 mg PO TID
Xarelto 20 mg tablet
20 mg PO DAILY
Discharge Orders:
Discharge Patient (As Directed); Ordered 02/21/25
Ordered By: Deanna Galeano
Discharge Date and Time
Print Language: KITTITIAN
== END 2025-02-21 15:00 | disposition home health service (06) | DRG 689 ==
LOC: 4 WEST ACU 21:00
PROVIDERS: Emergency Medicine; Internal Medicine; ADMITTING PHYSICIAN Internal Medicine; ATTENDING PHYSICIAN Internal Medicine; EMERGENCY PHYSICIAN Student in an Organized Health Care Education/Training Program; FAMILY PHYSICIAN Family Medicine
DX: N39.0 Urinary tract infection, site not specified (principal); G93.41 Metabolic encephalopathy; F02.818 Dementia in other diseases classified elsewhere, unspecified severity, with other behavioral disturbance; R47.01 Aphasia; G20.A1 Parkinson's disease without dyskinesia, without mention of fluctuations; N18.32 Chronic kidney disease, stage 3b; I12.9 Hypertensive chronic kidney disease with stage 1 through stage 4 chronic kidney disease, or unspecified chronic kidney disease; E05.90 Thyrotoxicosis, unspecified without thyrotoxic crisis or storm; I48.0 Paroxysmal atrial fibrillation; Z79.01 Long term (current) use of anticoagulants; E78.5 Hyperlipidemia, unspecified; Z66 Do not resuscitate; Z86.711 Personal history of pulmonary embolism; Z86.718 Personal history of other venous thrombosis and embolism; Z86.73 Personal history of transient ischemic attack (TIA), and cerebral infarction without residual deficits; Z87.440 Personal history of urinary (tract) infections; Z87.891 Personal history of nicotine dependence
CPT/HCPCS: 51798; 70450; 71046; 72100; 73502; 80048; 80053; 81003; 81015; 84443; 85025; 85027; 85610; 85730; 87040; 87086; 92610; 93971; 96360; 96361; 97162; 97166; 97535; 99285